=== PATIENT | male | born 1945 | race Caucasian/White ===

== ENCOUNTER 2017-11-12 07:31 | Outpatient (CLI) | payer MEDICARE, BC, SELFPAY | END 2017-11-12 07:32 | PROVIDERS: PCP Family Medicine; Visit Provider Surgery | DX: L72.3 Sebaceous cyst (principal) | CPT/HCPCS: 99213 ==

== ENCOUNTER 2017-12-11 09:27 | Outpatient (CLI) | payer MEDICARE, BC, SELFPAY ==
[2017-12-12 09:05] LABS: PSA, Diagnostic 0.1 ng/ml (0-6.5)
[2017-12-14 15:25] LABS: Testosterone, Total 244 ng/dL (240-950)
== END 2017-12-11 09:47 ==
PROVIDERS: PCP Family Medicine; Visit Provider Nurse Practitioner
DX: C61 Malignant neoplasm of prostate (principal)
CPT/HCPCS: 36415; 84403; 84153

== ENCOUNTER 2018-11-02 10:24 | Outpatient (REF) | payer MEDICARE, BC, SELFPAY ==
[2018-11-02 16:12] LABS: Anion Gap 8.7 mmol/L (3-11); BUN 11 mg/dL (7-18); CO2 28.3 mmol/L (21.0-32.0); CREATININE 0.68 mg/dL (0.70-1.30); Calcium 9.3 mg/dL (8.5-10.1); Calculated LDL 154 mg/dL; Chloride 104 mmol/L (98-107); Cholesterol 238 mg/dL (50-200); Glucose 95 mg/dL (70-100); HDL Cholesterol 76 mg/dL (40-60); Potassium 4.1 mmol/L (3.5-5.1); Sodium 141 mmol/L (136-145); Triglyceride 42 mg/dL (30-150)
== END 2018-11-02 10:44 ==
LOC: NCHCN 10:24
PROVIDERS: PCP Family Medicine; Visit Provider Family Medicine
DX: E78.5 Hyperlipidemia, unspecified (principal); R03.0 Elevated blood-pressure reading, without diagnosis of hypertension; C61 Malignant neoplasm of prostate; M54.5 Low back pain
CPT/HCPCS: 80048; 80061; 83721

== ENCOUNTER 2019-01-28 08:33 | Outpatient (CLI) | payer MEDICARE, BC, SELFPAY ==
[2019-01-29 11:06] LABS: PSA, Diagnostic 0.1 ng/ml (0-6.5)
[2019-02-01 12:53] LABS: Testosterone, Total 319 ng/dL (240-950)
== END 2019-01-28 08:53 ==
PROVIDERS: PCP Family Medicine; Visit Provider Nurse Practitioner
DX: C61 Malignant neoplasm of prostate (principal)
CPT/HCPCS: 36415; 84403; 84153

== ENCOUNTER 2020-02-15 01:52 | Outpatient (CLI) | payer MEDICARE, BC, SELFPAY ==
[2020-02-16 14:48] LABS: PSA, Diagnostic 0.2 ng/ml (0-6.5)
== END 2020-02-15 02:12 ==
PROVIDERS: PCP Family Medicine; Visit Provider Nurse Practitioner
DX: C61 Malignant neoplasm of prostate (principal)
CPT/HCPCS: 36415; 84153

== ENCOUNTER 2020-02-15 10:10 | Outpatient (REF) | payer MEDICARE, BC, SELFPAY ==
--- NOTE | 2020-02-15 09:30 | SKI_PTH ---
PATIENT: Allen Cerda LOC: [facility] U#:[id number] AGE/SX: 75/M ROOM: RE02/15/[address]: Moses Foster : 1945 BED: DIS: 02/15/2020 SPEC #: [id number] RECD: 02/15/20 17:55 STATUS: LIZZY ORTIZ #: [id number] ROCKY: 02/15/20 09:[address]: Moses Foster DEPT: Surgical Specimen RECD BY: Flory Izquierdo Tissues: 1 - SKIN BIOPSY(SHAVE/PUNCH) Procedures: SKIN LEVEL 4 Comments: [id number] ([id number] [facility] [place])
== END 2020-02-15 10:30 ==
LOC: NCHCN 10:10
PROVIDERS: PCP Family Medicine; Visit Provider Family Medicine
DX: L82.0 Inflamed seborrheic keratosis (principal)
CPT/HCPCS: 88305

== ENCOUNTER 2020-12-08 20:24 | Outpatient (CLI) | payer MEDICARE, BC, SELFPAY ==
--- NOTE | 2020-12-08 | DI.RAD_ITS ---
Exam(s) XR HIP RT COMPLETE AP PELVIS EXAM: XR HIP RT COMPLETE AP PELVIS CLINICAL HISTORY: RT HIP PAIN, M25.551 TECHNIQUE: COMPARISON: No exams were available for comparison FINDINGS: Two views were obtained. There are degenerative changes of the lower lumbar spine with multilevel di sc space narrowing. There are mild degenerative changes of the SI joints bilaterally. Cartilaginous joint spaces of the hips appear fairly well maintained. Mild acetabular marginal osteophyte formati on noted bilaterally. No other significant bony abnormality seen. 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 RADIATION DOSE DELIVERED: Total DLP
== END 2020-12-08 20:44 ==
PROVIDERS: PCP Family Medicine; Visit Provider Family Medicine
DX: M25.551 Pain in right hip (principal); M16.0 Bilateral primary osteoarthritis of hip; M47.816 Spondylosis without myelopathy or radiculopathy, lumbar region
CPT/HCPCS: 73502

== ENCOUNTER 2021-02-16 03:38 | Outpatient (CLI) | payer MEDICARE, BC, SELFPAY ==
[2021-02-17 15:05] LABS: PSA, Ultrasensitive 0.13 ng/mL (<= 6.5)
== END 2021-02-16 03:39 | disposition home or self-care (01) ==
LOC: LBO 03:38
PROVIDERS: PCP Family Medicine; Visit Provider Nurse Practitioner Family
DX: C61 Malignant neoplasm of prostate (principal)
CPT/HCPCS: 36415; 84153

== ENCOUNTER 2021-11-30 17:24 | Outpatient (REF) | payer MEDICARE, SELFPAY ==
[2021-11-30 16:47] LABS: Anion Gap 6.9 mmol/L (3-11); BUN 12 mg/dL (7-18); CO2 29.1 mmol/L (21.0-32.0); CREATININE 0.7 mg/dL (0.70-1.30); Calcium 9.4 mg/dL (8.5-10.1); Chloride 104 mmol/L (98-107); Glucose 101 mg/dL (74-106); Potassium 4.7 mmol/L (3.5-5.1); Sodium 140 mmol/L (136-145)
== END 2021-11-30 17:25 | disposition home or self-care (01) ==
LOC: NCHCN 17:24
PROVIDERS: PCP Family Medicine; Visit Provider Family Medicine
DX: R03.0 Elevated blood-pressure reading, without diagnosis of hypertension (principal)
CPT/HCPCS: 80048

== ENCOUNTER → 2021-12-24 07:52 | Outpatient (BNVA) | payer MEDICARE, SELFPAY | PROVIDERS: PCP Family Medicine; Referring Provider Family Medicine; Visit Provider Surgery | DX: L72.3 Sebaceous cyst (principal) | CPT/HCPCS: 99203 ==

== ENCOUNTER 2021-12-28 10:03 | Day surgery (SDC) | payer MEDICARE, SELFPAY ==
--- NOTE | 2021-12-27 17:24 | PDOC.DSDIS_ITS ---
Discharge Plan Disposition Patient Disposition: HOME Condition: Good Discharge Details Reason For Visit: Excision of soft tissue mass Attending Provider: Dion Vilchis Primary Care Provider: Moses Foster Home Meds and New Rx's Prescriptions: Continued cholecalciferol (vitamin D3) 1,000 UNIT capsule 1,000 unit PO DAILY omega-3 fatty acids-fish oil 1 EACH capsule 1 ea PO DAILY glucosamine IIs-xac-ulqrxibabs 1 EACH tablet 1 ea PO DAILY Discharge Instructions Instructions: Soft Tissue Mass (ED), Dermal Cyst Excision (DC) Additional Instructions: 1. Resume all of your medications. 2. Okay to use tylenol and ibuprofen over the counter as needed. 3. Leave bandage in place for 24 hours, then remove. 4. Shower with warm soapy water. Pat dry. Use a bandaid if needed to protect your clothing. 5. No soaking or tub baths until I see you in the office. 6. No heavy lifting until I see you in the office. 7.Call the office (or go directly to the emergency room after hours) if you notice any of the following: Develop chills (warm to touch), or if you have a thermometer and your temperature is above 101 Difficulty breathing or difficultly swallowing Persistent vomiting Any bleeding ? exceeding one tablespoon 8. Call your physician if the site where your intravenous was started becomes red, swollen, painful, and warm to touch. Stand Alone Forms: Bib Paige (DSU) Referrals: Dion Vilchis MD [ [facility]FF PHYSICIAN] - (follow up with me 7-10 days) Activity:: Activity as Tolerated Remove Dressings/Wound Care:: 24 hours Shower/Bathe:: 24 hours Diet:: As Tolerated Discharge Orders Discharge Orders: Discharge Order (Routine); Ordered 12/27/21 Ordered By: Dion Vilchis DS: Diagnosis Discharge Diagnosis (1) Sebaceous cyst: Status: Acute Asessment and Plan: See me in the office 10-14 days for follow up
--- NOTE | 2021-12-27 17:27 | W.PM.OP ---
Date of service: 12/28/21 Time of Service: 14:29 Operative Note Operative Note DATE OF PROCEDURE: 12/28/21 PRE-OP DIAGNOSIS: Soft tissue mass POST-OP DIAGNOSIS: other (Epidermal inclusion cyst) PROCEDURE: excision of skin mass and linear closure SURGEON: Dion Vilchis [employer]ERTY UNDERWRITER: Heidy Woodard Refer to Anesthesia Record ESTIMATED BLOOD LOSS: 25 PATHOLOGY: other (Right-sided lower back mass) COMPLICATIONS: None Patient was transported to: same day Patient's condition: stable Implants: None Indications: He has a mass growing on the right side of his lower back.? He notes is mostly he has had this excised previous.? Once in 2015, and once in 2018.? Both of those were described as sebaceous cysts, although there is no pathology available to me to confirm that.? He did enjoy a period of time where his symptoms were relieved.? However, over the past few years or so, it has returned.? He describes it as a golf ball size mass on his lower back.? He says it is most noticeable when he is out doing chores like riding a tractor or his mower.? He also has some discomfort transitioning from seated to standing positions.? He denies any drainage from it.? He denies any other lumps or bumps anywhere else.? Generally, he feels like he is in a great state of health. Findings: Soft tissue mass measuring approximately 5 cm x 6 cm x 6 cm consistent with epidermal inclusion cyst Procedure Description: I began by prepping and draping the skin of the right lower back. Next, using sterile technique, I administered local anesthesia with epinephrine to establish a generous field block. Next, I used a 15 blade scalpel to establish a football shaped incision encompassing his previous surgical site scar. I dissected down through all layers of the skin using sharp technique. Gentle pressure was used to assist with hemostasis. Immediately under the skin I encountered a glistening white capsule that seemed consistent with epidermal inclusion cyst. I used a 15 blade scalpel to dissect the skin off of the cyst wall. Using Metzenbaum scissors, I performed circumferential sharp dissection of the cystic mass. This dissection took me down to the superficial layer of the muscular fascia. Once the mass was dissected in its entirety it was delivered through the surgical site and passed off the field. I irrigated the surgical bed. There was a minimal amount of bleeding that was easily controlled with Bovie electrocautery. Again I examined the field and it appeared hemostatic. Next, I approximated the deep edges of the skin with interrupted Vicryl sutures. I tacked it to the muscular fascia to obliterate the space. Skin was closed with running subcuticular stitches, and bandages were applied. I estimate the final surgical cavity was approximately 8 cm long by 5 cm deep by 6 cm wide.
[2021-12-28 10:10] VITALS: BP 194/96; PULSE 68; RESP 16; TEMP 36.3; O2SAT 99
[2021-12-28] MEDS: Lactated Ringers 1,000 ML 80 ML IV ×2 (10:55→14:21)
[2021-12-28] MEDS: Acetaminophen 500 MG TAB 1000 MG PO (12:07)
[2021-12-28] MEDS: Celecoxib 200 MG CAP PO (12:08)
[2021-12-28] MEDS: Gabapentin 300 MG CAP 600 MG PO (12:08)
--- NOTE | 2021-12-28 12:55 | W.ANESPRE ---
General Info Date of Service Date Performed: 12/28/21 Height: 5 ft 7 in Weight: 69.1 kg Body Mass Index (BMI): 23.8 Surgical Procedure: Operation Date: 12/28/21 10:40 Proposed Procedure Side Surgeon p Excision of Soft Tissue Mass on Back Dion Vilchis MD Meds Allergies and Home Medications Allergies Allergy/AdvReac Type Severity Reaction Status Date / Time No Known Allergies Allergy Unverified 12/28/21 10:06 Home Medication Medication Instructions Recorded cholecalciferol (vitamin D3) 25 1,000 unit PO DAILY 11/07/17 mcg (1,000 unit) capsule glucosamine HCl 500 mg-msm 83 1 ea PO DAILY 11/07/17 mg-chondroitin 400 mg tablet omega-3 fatty acids-fish oil 300 1 ea PO DAILY 11/07/17 mg-1,000 mg capsule Current Visit Medications: Current Medications Generic Name Dose Route Start Last Admin Trade Name Freq PRN Reason Stop Dose Admin Acetaminophen 1,000 mg 12/28/21 06:00 12/28/21 12:07 Acetaminophen 500 Mg Tab PO 12/28/21 23:59 1,000 mg PREOP KAMALA Administration Acetaminophen 650 mg 12/27/21 17:29 Acetaminophen 325 Mg Tab PO Q4H PRN PRN Celecoxib 200 mg 12/28/21 06:00 12/28/21 12:08 Celecoxib 200 Mg Cap PO 12/28/21 23:59 200 mg PREOP KAMALA Administration Gabapentin 600 mg 12/28/21 06:00 12/28/21 12:08 Gabapentin 300 Mg Cap PO 12/28/21 23:59 600 mg PREOP KAMALA Administration Ringer's Solution 1,000 mls @ 80 mls/hr 12/28/21 06:00 12/28/21 10:55 IV 12/28/21 23:59 80 mls/hr INFUSION KAMALA Administration Cefazolin Sodium/Dextrose 2 gm in 50 mls @ 100 mls/hr 12/28/21 06:00 Ancef Duplex IVPB 12/28/21 23:59 PREOP KAMALA Ondansetron HCl 8 mg/ Sodium 54 mls @ 200 mls/hr 12/27/21 17:29 Chloride IVPB Q6H PRN PRN IV Miscellaneous Supplies 1 each 12/28/21 06:00 Iv Access IV 12/28/21 23:59 DIRECTED KAMALA Morphine Sulfate 2 mg 12/27/21 17:29 Morphine 4 Mg/Ml Syr IVP Q1H PRN PRN Sodium Chloride 0 ml 12/28/21 06:00 Normal Saline Flush 10 Ml Syr IV 12/28/21 23:59 PRN PRN Sodium Chloride 0 ml 12/28/21 06:00 Normal Saline 10 Ml Vial IJ 12/28/21 23:59 DIRECTED PRN Sterile Water 0 ml 12/28/21 06:00 Water,Injection,Sterile 10 Ml Vial IJ 12/28/21 23:59 DIRECTED PRN PFSH Active Problems Active Problems: Problem Status Onset Code Hypertension I10 Sebaceous cyst Medical History Medical History Chronic low back pain Degenerative joint disease Hyperlipidemia Osteoarthritis Prostate cancer Surgical History Surgical History Appendectomy Biopsy, Soft Tissue (11/18/17) back lesions Colonoscopy - IV Sedation Exe Neoplasm skin R lower back (11/30/14) Dr. Anand Umaña Tobacco Smoking/Tobacco Use Status: Former Tobacco Use Alcohol Alcohol Intake: current Alcohol intake frequency: a few times a month Alcohol type: beer Substance Use Substance use: Never Substance use type: does not use Vital Signs and Lab Results Vital Signs Most Recent Vital Signs in EMR: Most Recent Vital Signs Temp Pulse Resp BP Pulse Ox 36.3 C L 68 16 194/96 H 99 12/28/21 10:10 12/28/21 10:10 12/28/21 10:10 12/28/21 10:10 12/28/21 10:10 Lab Results Blood Type / Crossmatch: No Data to Display Complete Blood Count: No Data to Display Complete Metabolic Panel: Sodium Level 140 mmol/L (136-145) 11/30/21 10:15 Potassium Level 4.7 mmol/L (3.5-5.1) 11/30/21 10:15 Chloride Level 104 mmol/L (98-107) 11/30/21 10:15 Carbon Dioxide Level 29.1 mmol/L (21.0-32.0) 11/30/21 10:15 Blood Urea Nitrogen 12 mg/dL (7-18) 11/30/21 10:15 Creatinine 0.7 mg/dL (0.70-1.30) 11/30/21 10:15 Estimated GFR/1.73 m2 >= 60.00 (mL/min/1.73m2) 11/30/21 10:15 Calcium Level 9.4 mg/dL (8.5-10.1) 11/30/21 10:15 Glucose Level 101 mg/dL (74-106) 11/30/21 10:15 Liver Function Panel: No Data to Display Coagulation Panel: No Data to Display Cardiac Panel: No Data to Display Arterial Blood Gas: No Data to Display Venous Blood Gas: No Data to Display Pancreas Panel: No Data to Display Thyroid Panel: No Data to Display Infectious Disease: No Data to Display Blood Cultures: No Data to Display Toxicology Panel: No Data to Display Anesthesia Assessment and Plan Anesthesia History Personal History: No History of Anesthesia Complications Family History: No Family History of Anesthesia Complications Exercise Tolerance Exercise Tolerance: Metabolic Equivalents>4 Pertinent Negatives Pertinent Negatives: No Symptoms of GERD, No Major Cardiovascular Symptoms or Complaints, No Major Pulmonary Symptoms or Complaints (Quit smoking 1989) and No History of CVA/TIA Cardiac & Pulmonary Exam Cardiac Exam: Normal S1/S2 Heart Sounds Pulmonary Exam: Clear Bilateral Breath Sounds Implantable Cardiac Device Does patient have a Pacemaker or an ICD?: No Airway Exam Known Difficult Airway: No Mallampati Class: 3 Mouth Opening: Normal (> 3cm) Thyromental Distance: Greater than 3 cm Facial Hair: Full Lieberman Neck Range of Motion: Full ROM Neck Circumference: Normal Teeth Condition: Normal Dentition ASA Classification ASA Score: ASA 2 Emergency Case?: No NPO Status NPO Status: NPO Clears >2 hours, Solids >8 hours Anesthesia Plan Resuscitation Status: Full Code Anesthesia Technique: General Anesthesia Airway Planned: Natural Airway Monitors Used: Standard Monitors
[2021-12-28 12:56] VITALS: BMI 23.8
[2021-12-28 13:08] VITALS: BP 166/91; PULSE 67; RESP 16; TEMP 36.5; O2SAT 98
[2021-12-28] MEDS: ceFAZolin 2 GM/50 ML BAG IVPB (13:27)
[2021-12-28] MEDS: Lidocaine 1% Multi-Dose W/EPI 1/100,000 50 ML VIAL (14:00)
--- NOTE | 2021-12-28 14:05 | SOFT_PTH ---
PATIENT: Allen Cerda LOC: [facility] U#:[id number] AGE/SX: 76/M ROOM: RE12/28/[address]: Dion Vilchis MD : 1945 BED: DIS: 12/28/2021 SPEC #: [id number] RECD: 12/28/21 18:24 STATUS: MARYKita REQ #: [id number] ROCKY: 12/28/21 14:[address]: Dion Vilchis DEPT: Surgical Specimen RECD BY: Flory Izquierdo ENTERED: 12/28/21 18:25 SP TYPE: SOFT OTHR DR: Moses Foster Tissues: 1 - SOFT [facility]UE [facility] Procedures: GROSS AND MICRO LEVEL 3 Comments: [id number]
[2021-12-28 14:40] VITALS: BP 138/85; PULSE 55; RESP 12; TEMP 36; O2SAT 97
--- NOTE | 2021-12-28 14:44 | W.ANESPOSTOP ---
Postoperative Evaluation Date, Time and Location Date Performed: 12/28/21 Time Performed: 14:44 Patient Location: Day Surgery Unit Vital Signs Most Recent Imported Vital Signs: Most Recent Vital Signs Temp Pulse Resp BP Pulse Ox 36.5 C 67 16 166/91 H 98 12/28/21 13:08 12/28/21 13:08 12/28/21 13:08 12/28/21 13:08 12/28/21 13:08 Most Recent Manually Entered Vital Signs: Adult Blood Pressure: 128/84 Heart Rate: 78 Respirations: 12 Oxygen Saturation (%): 98 Temperature (C): 36.3 C Pain Score (0-10 Scale): 0 Pain Score Most Recent Pain Score: Most Recent Pain Score Pain Level 0 12/28/21 13:08 Assessment Mental Status: Awake (Alert & Oriented to Patient Baseline) Airway and Respiratory Function: Patent airway with normal (patient baseline) respiratory exam Cardiovascular Function: Hemodynamically Stable Hydration Status: Adequately Hydrated Nausea & Vomiting: No Nausea or Vomiting Pain: Pt. Denies Any Pain Peripheral Nerve Block: Patient did not receive a nerve block
[2021-12-28 14:45] VITALS: BP 128/84; PULSE 78; RESP 12; TEMPC 36.3; O2SAT 98
[2021-12-28 15:18] VITALS: BP 130/72; PULSE 59; RESP 16; TEMP 35.8; O2SAT 99
== END 2021-12-28 15:50 | disposition home or self-care (01) ==
PROVIDERS: PCP Family Medicine; Visit Provider Surgery
PROC: (CPT 21931; principal; 2021-12-28 10:30)
DX: L72.9 Follicular cyst of the skin and subcutaneous tissue, unspecified (principal)
CPT/HCPCS: 21931; 88304; J0690; J2250

== ENCOUNTER → 2022-01-07 11:23 | Outpatient (BNVA) | payer MEDICARE, SELFPAY | PROVIDERS: PCP Family Medicine; Referring Provider Family Medicine; Visit Provider Surgery | DX: L72.3 Sebaceous cyst (principal); T81.31XA Disruption of external operation (surgical) wound, not elsewhere classified, initial encounter ==

== ENCOUNTER → 2022-01-14 09:17 | Outpatient (BNVA) | payer MEDICARE, SELFPAY | PROVIDERS: PCP Family Medicine; Referring Provider Family Medicine; Visit Provider Surgery | DX: L72.3 Sebaceous cyst (principal); T81.31XA Disruption of external operation (surgical) wound, not elsewhere classified, initial encounter | CPT/HCPCS: 99213 ==

== ENCOUNTER → 2022-01-30 07:29 | Outpatient (BNVA) | payer MEDICARE, SELFPAY | PROVIDERS: PCP Family Medicine; Referring Provider Family Medicine; Visit Provider Surgery | DX: L72.3 Sebaceous cyst (principal); T81.31XA Disruption of external operation (surgical) wound, not elsewhere classified, initial encounter | CPT/HCPCS: 99213 ==

== ENCOUNTER → 2022-02-20 08:20 | Outpatient (BNVA) | payer MEDICARE, SELFPAY | PROVIDERS: PCP Family Medicine; Referring Provider Family Medicine; Visit Provider Surgery | DX: T81.31XA Disruption of external operation (surgical) wound, not elsewhere classified, initial encounter (principal) ==

== ENCOUNTER 2022-03-20 03:17 | Outpatient (CLI) | payer MEDICARE, SELFPAY ==
[2022-03-21 19:24] LABS: PSA, Ultrasensitive 0.15 ng/mL (<= 6.5)
== END 2022-03-20 03:18 | disposition home or self-care (01) ==
LOC: LBO 03:17
PROVIDERS: PCP Family Medicine; Visit Provider Nurse Practitioner Family
DX: C61 Malignant neoplasm of prostate (principal)
CPT/HCPCS: 36415; 84153

== ENCOUNTER 2022-12-03 10:06 | Outpatient (REF) | payer MEDICARE, SELFPAY ==
[2022-12-03 16:50] LABS: Calculated LDL 155 mg/dL (<100); Cholesterol 245 mg/dL (<200); HDL Cholesterol 82 mg/dL (40-60); Triglyceride 42 mg/dL (<150)
== END 2022-12-03 10:07 | disposition home or self-care (01) ==
LOC: NCHCN 10:06
PROVIDERS: PCP Family Medicine; Visit Provider Family Medicine
DX: E78.5 Hyperlipidemia, unspecified (principal)
CPT/HCPCS: 80061

== ENCOUNTER 2023-03-25 02:33 | Outpatient (CLI) | payer MEDICARE, SELFPAY | END 2023-03-25 02:34 | disposition home or self-care (01) | PROVIDERS: PCP Family Medicine; Visit Provider Nurse Practitioner | DX: C61 Malignant neoplasm of prostate (principal) | CPT/HCPCS: 36415; 84153 ==

== ENCOUNTER 2024-04-09 13:52 | Outpatient (CLI) | payer MEDICARE, SELFPAY ==
--- OUTSIDE RECORDS SUMMARY | 2024-04-09 13:57 | XMS_ITS | Encounter Summary ---
Author Organization [facility] [place] [address] Care Team Providers Care Print Shop Assistant Name Role Phone Moses Foster MD Primary Care Provider [phone] Encounter Details Date Type Department Care Team (Latest Contact Info) Description 04/10/2023 3:15 PM EST TH Visit (TeleHealth) [place] [address] Kimberley Foster APRN [facility] [place] [address] Personal history of prostate cancer; History of external beam radiation therapy Social History Tobacco Use Types Packs/Day Years Used Date Smoking Tobacco: Former Pipe Q uit: 06/24/1986 Cigars Quit: 06/24/18 87 Smokeless Tobacco: Former Chew Comments:quit smoking & chewing 20 yrs ago Alcohol Use Standard Drinks/Week Comments Yes 0 (1 standard drink = 0.6 oz pure alcohol) ocassional beer, usually in the summer Sex and Gender Information Value Date Recorded Sex Assigned at Not on file Gender Identity Not on file Sexual Orientation Not on file documented as of this encounter Last Filed Vital Signs Vital Sign Reading Time Taken Comments Blood Pressure 168/87 04/10/2023 3:06 PM EST Pulse 66 04/10/2023 3:06 PM EST Temperature 36.5 ??C (97.7 ??F) 04/10/2023 3:06 PM ES T Respiratory Rate 18 04/10/2023 3:06 PM EST Oxygen Saturation 100% 04/10/2023 3:06 PM EST Inhaled Oxygen Concentration - - Weight 68.1 kg (150 lb 3.2 oz) 04/10/2023 3:06 P M EST Height 168.9 cm (5' 6.5) 04/10/2023 3:06 PM EST Body Mass Index 23.88 04/10/2023 3:06 PM EST documented in this encounter Progress Notes * Kimberley Foster APRN - 04/10/2023 3:15 PM EST [facility] RADIATION ONCOLOGY [facility] TH VISIT FOLLOW UP NOTE Patient Allen Cerda 1945 PCP: Moses Foster MD Urologist: Radiation oncologist: Dr. Smith Chief Complaint: Allen Cerda is a 78 y.o. male presenting for TH follow up/surveillance/labs fora history of high risk prostate cancer, post EBRT completed 03/19/2013 and 27 months of ADT. HPI: hx high risk prostate cancer at age 67 years- PSA 93.30 at presentation; CANDIS abnormal, G 4+5; 10/17 core biopsies +, PRINCESS/SV/nodes neg on MRI; Completed EBRT 79.2 Gy in 44 fractions on 03/19/2013.Completed casodex with RT and Lupron 11/10/12- 11/02/14 (27 mos total). Interim HPI: I reviewed the following outside notes: none Reports no hospitalizations in past year Review of Symptoms: Patient concerns for today's visit: no specific concerns, reports doing well GI: colonoscopy 12/18/12; 4 polyps removed; no changes; no hematochezia; reports PCP said he didn't need any more colonoscopy due to higher risk than benefit; did a stool test that was negative : no hematuria; nocturia 2X; no dribbling no pad; no changes in pattern Endocrine:taking ca/vit d for osteopenia; Sexual health: ED since RT/ADT Muscle skeletal (new bone pain): no new pain; usual arthritis Mood: no depression Sleep: well 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 BP 168/87 (Patient Position: Sitting) Pulse 66 Temp 36.5 ??C (97.7 ??F) (Temporal) Resp 18 Ht 168.9 cm (5' 6.5) Wt 68.1 kg (150 lb 3.2 oz) Seen on video- alert/clear speech, good eye contact New Labs Reviewed this visit: Date PSA Testosterone (range 240 to 950) 03/27/23 0.10 03/20/22 02/27/21 0.15 0.13 12/11/2017 0.1 244 06/05/2017 0.1 225 12/04/2016 < 0.1 215 06/06/16 <0.1 150 12/06/15 <0.1 99 06/06/2015 < 0.1 62 02/06/2015 < 0.1 27 11/02/2014 < 0.1 < 20 07/25/2014 < 0.1 < 20 04/13/2014 < 0.1 15 01/11/2014 < 0.1 < 20 09/30/2013 <0.1 <20 06/24/2013 <0.03 09/28/2012 57.2 08/27/2012 93.30 Assessment/Medical Decision Making/Recommendations/Plan: # history of prostate cancer: reviewed PSA results remains very low at 0.10 Ten years out from radiation therapy . No concerning reported symptoms reported today # effects of EBRT: no hematochezia or hematuria; stable urinary/bowel patterns # Late effects of radiation: We reviewed potential late effects of radiation that require medical evaluation including : Changes in urinary flow/difficulty passing urine (scarring from radiation) Blood in urine (may be infection, inflammation bladder wall (cystitis), formation of telangiectasia(small, thin blood vessels that are dilated or broken, near the surface of the bladder and may bleed) or bladder/genitourinary cancer Blood in bowel movements (stools)- maybe from hemorrhoids, telangiectasia from radiation, colorectal cancer Symptoms that you should bring to the attention of your provider: Difficulty or changes in your urine flow Blood in your urine or stool # survivorship/lifestyle/wellness: -exercises regularly; quit smoking, limited alcohol; sees PCP regularly # follow up: Per NCCN guidelines (), PSA and history/physical every 6-12 months X 5 years, then annually. CANDIS if suspicion of recurrence. PSA may be checked more frequently depending on risk level or other patient specific factors. Next visit: 1 year with MOLLY in office Labs: PSA only Allen Cerda had the opportunity to ask questions and I answered them to the best of my knowledge. Allen Cerda agreed to contact radiation oncology in between visits if he has any questions/concerns or new symptoms in regards to the radiation therapy/prostate cancer Kimberley Foster, DNP, ANP, TOURIST CAMP ATTENDANT, AOCNP Nurse Practitioner Radiation Oncology documented in this encounter Plan of Treatment Upcoming Encounters Date Type Department Care Team (Late st Contact Info) Description 04/15/2024 1:00 PM EST Office Visit Radiation Oncology at [address] [phone] Bernda Calvin PA [facility] [address] [place] [address] Scheduled Orders Name Type Priority Associated Diagnoses Orde r Schedule PSA (Ultrasensitive) Lab Routine Personal history of prostate cancer Expected: 04/09/2024 (Approximate), Expires: 10/09/2024 documented as of this encounter Visit Diagnoses Diagnosis Personal history of prostate cancer Personal history of malignant neoplasm of prostate History of external beam radiation therapy documented in this encounter Care Teams Print Shop Assistant Relationship Specialty Start Date End Date Moses Foster MD PCP - General 08/20/16 documented as of this encounter
--- OUTSIDE RECORDS SUMMARY | 2024-04-09 13:57 | XMS_ITS | Referral Summary ---
Author Organization [facility] Address [address] [place] [address] Care Team Providers Care Conveyor Belt Repairer Name Role Phone Unknown, Provider Primary Care Provider Unava ilable Social History Tobacco Use Types Packs/Day Years Used Date Smoking Tobacco: Never Assessed Sex and Gender Information Value Date Recorded Sex Assigned at Not on file Legal Sex Male 8:08 EDT Gender Identity Not on file Sexual Orientation Not on file Plan of Treatment Not on file Insurance [facility] MEDIC[facility] Care Teams Conveyor Belt Repairer Relationship Specialty Start Date End Date Unknown, Provider, PCP - General 12/19/12
--- OUTSIDE RECORDS SUMMARY | 2024-04-09 13:57 | XMS_ITS | Encounter Summary ---
Author Organization [facility] Address [address] [place] [address] Care Team Providers Care Motion Study Analyst Name Role Phone Unknown, Provider Primary Care Provider Unava ilable Encounter Details Date Type Department Care Team (Late st Contact Info) Description 12/18/2012 Results Only [facility] [phone] Norma Umaña, DO [address] [place] [address] Social History Tobacco Use Types Packs/Day Years Used Date Smoking Tobacco: Never Assessed Sex and Gender Information Value Date Recorded Sex Assigned at Not on file Legal Sex Male 8:08 EDT Gender Identity Not on file Sexual Orientation Not on file documented as of this encounter Plan of Treatment Not on file documented as of this encounter Procedures Procedure Name Priority Date/Time Associated Diagnosis Comments SURGICAL PATHOLOGY Routine 12/18/2012 8:19 EDT documented in this encounter Results * SURGICAL PATHOLOGY (12/18/2012 8:19 EDT) Pathology Report: SURGICAL PATHOLOGY REPORT Reports generated via electronic interface contain original data; however they are lacking the format of the original report. Caution should be taken when reading/interpreti ng unformatted reports. Name: ? JULITA ALLEN ? Accession #: ? [id number] ? : ? 1945 (Age: 67) ??M ? Collect Date: ? 12/18/2012 ? Location: ? [facility] ? Receive Date: ? 12/18/2012 ? Provider: NORMA UMAÑA DO Copy to: MYRIAM SALINAS MD ? Final Pathologic Diagnosis: A. COLON, TRANSVERSE, POLYP, BIOPSY: - ??Colonic mucosa with surface hyperplastic changes (2 pieces). See comment. B. COLON, DESCENDING, POLYP, BIOPSY: - ??Colonic mucosa surface hyperplastic changes (1 piece). See comment. C. RECTUM, POLYPS, BIOPSIES: - ??Portions of hyperplastic polyp (3 pieces); no adenoma. Comment: Deeper sections of specimens A and B have been examined. Dr. Davis 12/21/2012 11:44 AM Document reviewed and electronically signed by: Rubin Baird MD Report ??Date: 12/22/2012 17:41 By the signature above, the attending physician certifies that he/she has personally conducted a gross and/or microscopic examination of the described specimens and rendered or confirmed the above diagnosis. Specimen(s) Received: A. ??Biopsy of polyp transverse colon (#1) B. ??Biopsy of poly descending colon (#2) C. ??Biopsy of rectal polyps (#3) Clinical History: Colon cancer screening Gross Description: A. ?Received in formalin labelled with proper patient identification (initials G, G) and 1- biopsy of polyp transverse colon is a single pink-irene tissue fragment (there were 4 x 0.3 x 0.2 cm). Submitted intact in A1. B. ?Received in formalin labelled with proper patient identification (initials G, G) and 2- biopsy of polyp descending colon is a single pink-irene tissue fragment (0.3 x 0.3 x 0.2 cm). Submitted intact in B1. C. ?Received in formalin labelled with proper patient identification (initials G, G) and 3- biopsy rectal polyp are three pink-irene tissues (0.2 x 0.2 x 0.2 cm to 0.3 x 0.2 x 0.2 cm). Entirely submitted in C1. Dr. Davis 12/19/2012 09:50 AM End of Report [facility] 12/18/2012 8:19 EDT 12/18/2012 8:19 EDT us Norma Umaña DO PATHOLOGY ORDERABLES Final Res ult Performing Organization Address City/State/[facility] Co de Phone Number [facility] [address] [place] [address] documented in this encounter Visit Diagnoses Not on filedocumented in this encounter Care Teams Motion Study Analyst Relationship Specialty Start Date End Date Unknown, Provider, PCP - General 12/19/12 documented as of this encounter
--- OUTSIDE RECORDS SUMMARY | 2024-04-09 13:57 | XMS_ITS | Encounter Summary ---
Author Organization [facility] [place] [address] Care Team Providers Care Lens Hardener Name Role Phone Howard Rayo MD Primary Care Provider [phone] Reason for Visit * Reason Comments Radiation Follow-up prostate cancer Encounter Details Date Type Department Care Team (Late st Contact Info) Description 06/15/2015 1:00 PM EST Office Visit Radiation Oncology at [address] [phone] Joana Layton, QC ANALYST Malignant neoplasm of prostate Social History Tobacco Use Types Packs/Day Years Used Date Smoking Tobacco: Former Pipe Q uit: 06/24/1986 Cigars Quit: 06/24/18 87 Smokeless Tobacco: Former Chew Comments:quit smoking 1979' & chewing 20 yrs ago Alcohol Use [...] Sign Reading Time Taken Comments Blood Pressure 133/76 06/15/2015 1:00 PM EST Pulse 68 06/15/2015 1:00 PM EST Temperature 36.6 ??C (97.9 ??F) 06/15/2015 1:00 PM ES T Respiratory Rate 16 06/15/2015 1:00 PM EST Oxygen Saturation 100% 06/15/2015 1:00 PM EST Inhaled Oxygen Concentration - - Weight 72.8 kg (160 lb 8 oz) 06/15/2015 1:00 PM EST Height - - Body Mass Index 25.14 10/29/2012 10:25 AM EDT documented in this encounter Patient Instructions * Patient Instructions* Joana Layton APRN - 06/15/2015 1:16 PM EST Date PSA testosterone 06/06/2015 < 0.1 02/06/2015 < 0.1 27 11/02/2014 < 0.1 < 20 07/25/2014 < 0.1 < 20 04/13/2014 < 0.1 15 01/11/2014 < 0.1 < 20 09/30/2013 <0.1 <20 06/24/2013 <0.03 09/28/2012 57.2 08/27/2012 93.30 Vitals Office Visit from 06/15/2015 in [facility] Radiation Oncology Weight - Scale 72.802 kg (160 lb 8 oz) Temp 36.6 ??C (97.9 ??F) Temp Source Oral Heart Rate 68 Resp 16 BP 133/76 mmHg BP Location Left arm Patient Position Sitting SpO2 100 % documented in this encounter Progress Notes * Joana Layton APRN - 06/15/2015 12:50 PM EST Identification: Allen Cerda is a 70 y.o. 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 He was treated with radiation therapy 79.2 Gy and completed treatment on 03/19/2013. He had his last injection of Lupron on 11/02/2014 completing 28 months of androgen deprivation.He is in clinic for scheduled follow up. HPI Mr. Allen Cerda injured his back in August of this year and established care with Dr. Rayo. He had not been seen by a physician in many years. He had an MRI of the lumbar spine performed here that did not show any osseus lesions. Lab work performed by Dr. Rayo showed an elevated PSA: 09/28/12: 57.2 In August by review of the record PSA was 98. His CANDIS was abnormal with a left nodule. He had a biopsy performed on 10/05/12 which revealed: ---Pathologic Diagnosis--- A - Prostatic core needle biopsy, right base: Benign prostatic tissue. B - Prostatic core needle biopsy, right mid: Benign fibromuscular tissue. C - Prostatic core needle biopsy, right apex: Benign prostatic tissue. D - Prostatic core needle biopsy, right lateral base: Benign prostatic tissue. E - Prostatic core needle biopsy, right lateral mid: Benign prostatic tissue. F - Prostatic core needle biopsy, right lateral apex: Benign prostatic tissue. G - Prostatic core needle biopsy, left base: Adenocarcinoma, Donny grade 4 + 3, involving approximately 50% of the single biopsy core. H - Prostatic core needle biopsy, left mid:1. Adenocarcinoma, [place] grade 4 + 3, involvingapproximately 60% of the fragmented needle biopsy core.2. Perineural invasion is present. I - Prostatic core needle biopsy, left apex:1. Adenocarcinoma, [place] grade 3 + 4, involvingapproximately 10% of the single biopsy core.2. Perineural invasion is present. J - Prostatic core needle biopsy, left lateral base:1. Adenocarcinoma, Donny grade 4 + 5, involvingapproximately 70% of the single biopsy core (seeComment).2. Focus of intraluminal cancer, suspicious for lymphatic invasion. K - Prostatic core needle biopsy, left lateral mid:adenocarcinoma, Donny grade 4 + 4, involving [id number]% of the single biopsy core. L - Prostatic core needle biopsy, left lateral apex:Adenocarcinoma, [place] grade 3 + 3, involving less than 5%of the single biopsy core. M - Prostatic core needle biopsy, left nodule x 2:Adenocarcinoma, Donny grade 4 + 4, involving [id number]% of the multiple needle biopsy core fragments. His other work-up has included: --MRI Pelvis 10/20/12 Impression 1. Markedly enlarged heterogeneous prostate with pre-existing benign prostatic hypertrophy. In addition, there are low signal intensity foci on T2 images within the peripheral zone consistent with/concerning for prostate cancer. One is quite circumscribed and measures 2 cm. No MR findings to suggest extracapsular extension. No adenopathy. ---Bone Scan: 10/20/12 Impression No skeletal metastases. IPSS: 1 TRUS:46cc ALVINA: 25 TREATMENT: MCC ADT FOR 28 MONTHS PLANNED. Radiotherapy: Treatment: Definitive radiation with Neoadjuvant/Concurrent/Adjuvant Androgen Deprivation. PROSTATE Plan Start Tx Last Tx Elapsed Days Fractions Dose (cGy) PTV1 Pelvis 01/14/2013 02/17/2013 34 25 / 25 @ 180.0 cGy 4500 / 4500 Energy Mode: 10X Treatment Type: Rapid Arc PTV3 Prostate 03/15/2013 03/19/2013 4 5 5 @ 180.0 cGy 900 / 900 Energy Mode: 10X Treatment Type: Rapid Arc PTV2 Prost_SV 02/18/2013 03/12/2013 22 @ 180.0 cGy 2520 / 2520 Energy Mode: 10X Treatment Type: Rapid Arc Total C1 PROSTATE dose: 7920.0 cGy Total Dose: 7920.0 cGy Treatment summary reviewed with patient 01/20/2014--see after visit summary Prostate Cancer Notes 10/27/2013, update 04/21/2014, update 02/09/2015 Date of Presentation 08/27/2012 Age at Presentation 67 years old PSA at Presentation 93.30 on 08/27/2012, and 57.2 on 09/28/2012 Presence of Symptoms at Presentation negative Ethnicity White Result of CANDIS Abnormal Date of TRUS and Biopsy 10/05/2012 Volume in cc 46 cc [place] grade/score a+b=c 4+5=9 Total Cores 13 biopsy cores Positive cores 7 cores Bone Scan at Presentation -negative Date of Bone Scan 10/20/2012 Prostate confined yes PRINCESS -negative on MRI SV -negative on MRI Regular Nodes -negative on MRI Distant Mets -negative on MRI Date of MRI 10/20/2012 Urinary Continence at Presentation normal Primary Therapy EBRT EBRT Date Began 01/14/2013 ERBT Total Dose (Gy) 79.2 Gy Treatment Fractions 44 fractions Elapsed Date 03/19/2013 Post Primary Therapy - Les Date 09/30/2013 Post Primary Therapy - Les PSA <0.1 Adjuvant Therapy LHRH agonist--Casodex started on 10/29/2012 through XRT and Lupron given as follows: 11/10/2012 --Lupron 22.5 mg IM 02/01/2013--Lupron 22.5 mg IM 04/27/2012--Lupron 22.5 mg IM 07/23/2013-Lupron 22.5 mg IM 10/21/2012--Lupron 22.5 mg IM 01/20/2014-Lupron 22.5 mg IM 04/21/2014--Lupron 22.5 mg IM 07/28/2014-- Lupron 22.5 mg IM 11/02/2014--Lupron 22.5 mg IM ADT Duration in Months 28 months completed DEXA 06/06/2015--mild osteopenia left hip with Frax xcore of 2.3% Patient Active Problem List Diagnosis Code ??? PSA elevation R97.2 ??? Prostate nodule N40.2 ??? Prostate cancer C61 ---arthritis No past surgical history on file. No Known Allergies Current Outpatient Prescriptions on File Prior to Visit Medication Sig Dispense Refill ??? calcium-vitamin D 500 mg(1,250mg) -200 unit Tablet Take 1 tablet by mouth 2 times daily (with meals). ??? fish oil-omega-3 fatty acids 1,000 mg Capsule Take 2 g by mouth daily. ??? ibuprofen (ADVIL;MOTRIN) 200 mg tablet Take 400 mg by mouth every 6 hours as needed. Indications: Pain, chronic back pain No current facility-administered medications on file prior to visit. History Social History ??? Marital Status: Spouse Name: N/A Number of Children: N/A ??? Years of Education: N/A Occupational History ??? Not on file. Social History Main Topics ??? Smoking status: Former Smoker Types: Pipe, Cigars Quit date: 06/24/1986 ??? Smokeless tobacco: Former User Types: Chew Comment: quit smoking 1979' & chewing 20 yrs ago ??? Alcohol Use: Yes Comment: ocassional beer, usually in the summer ??? Drug Use: Not on file ??? Sexual Activity: Not on file Other Topics Concern ??? Not on file Social History Narrative Advance Directive: see advance care planning note. Interim History: Mr Cerda reports that he is feeling well with no new health issues since he was last seen in clinic. He has ongoing non-distressing hot flashes. The hot flashes seem more intense butof shorter duration--this is not distressing to patient. He is active working around his property and tolerating this. He finds that he fatigues faster so then stops. He has no pain. He has no bowel issues with bowel function twice a day --he reports no constipation, no diarrhea, no hematochezia and no melena.--Mr Cerda had a colonoscopy done 12/29/2012 and four polyps were removed. He has no bladder issues. He denies dysuria, hematuria and incontinence His IPSS is lower and Remains stable at 2.He indicates that he is delighted with his urinary function. International Prostate Symptom Score Total Score__2___ 0 1 2 3 4 5 Not at all Less than one time in five Less than half of the time About half of the time More than half of the time Almost always Incomplete emptying X frequency X intermittency X urgency X Weak stream X Flow resistance X Not at all Every eight hours Every four hours Every three hours Every 2 hours Every hour nocturia X He is not sexually active--ALVINA=0 Review of Systems Constitutional: Negative. Negative for activity change. 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 Hot flashes--do not interfere with sleep--fatigue is decreasing No breast tenderness Able to do some logging -- HENT: Negative. Eyes: Negative. Respiratory: Negative. Negative for cough, chest tightness, shortness of breath and wheezing. Cardiovascular: Negative. Negative for chest pain and leg swelling. Gastrointestinal: Negative. Negative for abdominal pain, diarrhea, constipation, blood in stool, abdominal distention and rectal pain. See interim history Genitourinary: Negative. Negative for dysuria, urgency, frequency, hematuria, decreased urine volume, enuresis and difficulty urinating. See interim history Musculoskeletal: Negative. Negative for arthralgias. Back is feeling better overall Skin: Patient had large lipoma on his back surgically removed in November 2014 Neurological: Negative. Negative for weakness. Hematological: Negative. Psychiatric/Behavioral: Negative. KPS: 100 Vitals Office Visit from 02/09/2015 in [facility] Radiation Oncology Weight - Scale 72.122 kg (159 lb) Temp 36.7 ??C (98.1 ??F) Temp Source Oral Heart Rate 62 Heart Rate Source Right, NIBP Resp 16 BP 146/86 mmHg BP Location Right arm Patient Position Sitting SpO2 99 % Physical Exam Constitutional: He is oriented to person, place, and time. He appears well- developed and well-nourished. No distress. HENT: Head: Normocephalic and atraumatic. Eyes: Conjunctivae and EOM are normal. Left eye exhibits no discharge. No scleral icterus. Neck: Neck supple. Cardiovascular: Normal rate, regular rhythm and normal heart sounds. Exam reveals no gallop and no friction rub. No murmur heard. Pulmonary/Chest: Effort normal and breath sounds normal. No respiratory distress. He has no wheezes. He has no rales. He exhibits no tenderness. Abdominal: Soft. Bowel sounds are normal. He exhibits no distension. There is no hepatomegaly. There is no tenderness. There is no rebound, no guarding and no CVA tenderness. Genitourinary: Rectal-deferred Musculoskeletal: Normal range of motion. He exhibits no edema or tenderness. Lymphadenopathy: Head (right side): No submental, no submandibular, no tonsillar, no preauricular, no posterior auricular and no occipital adenopathy present. Head (left side): No submental, no submandibular, no tonsillar, no preauricular, no posterior auricular and no occipital adenopathy present. He has no cervical adenopathy. He has no axillary adenopathy. Right: No inguinal and no supraclavicular adenopathy present. Left: No inguinal and no supraclavicular adenopathy present. Neurological: He is alert and oriented to person, place, and time. No cranial nerve deficit. He exhibits normal muscle tone. Coordination normal. Skin: Skin is warm and dry. No rash noted. He is not diaphoretic. No erythema. No pallor. Psychiatric: He has a normal mood and affect. His behavior is normal. Judgment and thought content normal. Vitals reviewed. 01/11/2014 04/13/2014 02/07/2015 WBC 4.3 4.54 4.53 RBC 4.69 4.45 4.62 HCT 41.3 39.0 40.1 HGB 14.4 13.5 13.8 PLAT 219 202 208 CA 9.0 9.3 BUN 12 11 CREAT 0.8 0.73 EGFR >60 >60 T PROT 6.6 7.2 ALB 3.6 3.6 BILI T 0.42 0.41 ALK P 94 82 AST 26 22 ALT 23 23 NA 138 143 K 4.0 4.0 07/25/2014--CBC CMP reviewed --no concerns. Date PSA testosterone 06/06/2015 < 0.1 62 02/06/2015 < 0.1 27 11/02/2014 < 0.1 < 20 07/25/2014 < 0.1 < 20 04/13/2014 < 0.1 15 01/11/2014 < 0.1 < 20 09/30/2013 <0.1 <20 06/24/2013 <0.03 09/28/2012 57.2 08/27/2012 93.30 Assessment: Allen Cerda is a very pleasant 70 y.o. 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 Mr Cerda completed radiation in March 2013. PSA is undetectable. Testosterone above castrate level for the first time but remains low at 62 We reviewed his lab results. He has no/minimal residual side effects from radiation. He has mild fatigue and hot flashes from ADT. I reviewed the need for continued PSA monitoring. 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 His Frax score was 2.3% I reviewed potential late effects from radiation and side effects from ADT. He was again recommended to continue Vitamin D and calcium for bone health and to continue exercise. All questions were addressed. Plan: 1. F/U in six months with PSA, testosterone 3. Continue calcium and vitamin D Patient is to call if he has any questions or concerns. documented in this encounter Plan of Treatment Upcoming Encounters Date Type Department Care Team (Late st Contact Info) Description 04/15/2024 1:00 PM EST Office Visit Radiation Oncology at [address] [phone] Brenda Calvin PA [facility] DR HEMATOLOGY [place] [address] documented as of this encounter Visit Diagnoses Diagnosis Malignant neoplasm of prostate documented in this encounter Care Teams Lens Hardener Relationship Specialty Start Date End Date Howard Rayo MD [address] [place] [address] PCP - General 08/28/12 08/19/16 documented as of this encounter
--- OUTSIDE RECORDS SUMMARY | 2024-04-09 13:57 | XMS_ITS | Encounter Summary ---
Author Organization [facility] Address [facility] [place] [address] Care Team Providers Care Book Repairer Name Role Phone Moses Foster MD Primary Care Provider [phone] Encounter Details Date Type Department Care Team (Latest Contact Info) Description 04/10/2023 Travel Social History Tobacco Use Types Packs/Day Years [...] as of this encounter Plan of Treatment Upcoming Encounters Date Type Department Care Team (Late st Contact Info) Description 04/15/2024 1:00 PM EST Office Visit Radiation Oncology at [address] [phone] Brenda Calvin PA [facility] DR HEMATOLOGY [place] [address] documented as of this encounter Visit Diagnoses Not on filedocumented in this encounter Care Teams Book Repairer Relationship Specialty Start Date End Date Moses Foster MD PCP - General 08/20/16 documented as of this encounter
--- OUTSIDE RECORDS SUMMARY | 2024-04-09 13:57 | XMS_ITS | Clinical Summary ---
Author Organization [facility] Address [facility] [place] [address] Care Team Providers Care Surgical Services Manager Name Role Phone Moses Foster MD Primary Care Provider [phone] Allergies No known active allergies Medications Medication Sig Dispensed Refills Start Date End Date Status ibuprofen (ADVIL;MOTRIN) 200 mg tabletIndications:lara n,chronic back pain Take 400 mg by mouth every 6 hours as needed. Indications: Pain, chronic back pain Active calcium-vitamin D 500 mg(1,250mg) -200 unit Tablet Take 1 tablet by mouth 2 times daily (with meals). Reported on 06/13/2016 Active fish oil-omega-3 fatty acids 1,000 mg Capsule Take 2 g by mouth daily. Active GLUC HCL/CSANA/GLY-AM-GLY, MX/C (GLUCOSAM-CONDROITIN- GA GLYCN-C ORAL) Take by mouth daily. Active Active Problems Problem Noted Date Diagnosed Date Prostate cancer 12/25/2012 Cancer Staging:Clinical:Stage IIB(Free text: IIB - high risk) - Signed by Keven Smith MD on 02/03/2013 PSA elevation 09/22/2012 Prostate nodule 09/22/2012 Social History Tobacco Use Types Packs/Day Years [...] on file Sexual Orientation Not on file Last Filed Vital Signs Vital Sign Reading [...] Mass Index 23.88 04/10/2023 3:06 PM EST Plan of Treatment Upcoming Encounters Date Type Department Care Team (Late st Contact Info) Description 04/15/2024 1:00 PM EST Office Visit Radiation Oncology at [address] [phone] Brenda Calvin PA [facility] [address] [place] [address] Health Maintenance Due Date Last Done Comments Hepatitis C Screening 01[birth year]08/1963 Tetanus/Diphtheria/Pertussis Vaccines (1 - Tdap) 01/07 Pneumoccocal Vaccine: 65+ (1 of 1 - PCV) 01/08/1996 Zoster vaccine (1 of 2) 01/08/1996 Advance Directive 2001 RSV Vaccine (1 - 1-dose 75+ series) 2021 Covid-19 Vaccine (1 - season) 2023 Influenza (Flu) vaccine (1 o f 1 - Influenza standard series) 12/07/2023 Care Teams Surgical Services Manager Relationship Specialty Start Date End Date Moses Foster MD PCP - General 08/20/16
--- OUTSIDE RECORDS SUMMARY | 2024-04-09 13:57 | XMS_ITS | Encounter Summary ---
Author Organization Formerly [facility] [place] [address] Care Team Providers Care Anode Adjuster Name Role Phone Howard Rayo MD Primary Care Provider [phone] Encounter Details Date Type Department Care Team (Late st Contact Info) Description 06/13/2016 1:45 PM EST Office Visit Hematology/Oncology at [address] [phone] Yolande Rosa, [employer] Prostate cancer Social History Tobacco Use Types Packs/Day Years [...] Sign Reading Time Taken Comments Blood Pressure 127/80 06/13/2016 1:47 PM EST Pulse 69 06/13/2016 1:47 PM EST Temperature 36.8 ??C (98.2 ??F) 06/13/2016 1:47 PM ES T Respiratory Rate 18 06/13/2016 1:47 PM EST Oxygen Saturation 100% 06/13/2016 1:47 PM EST Inhaled Oxygen Concentration - - Weight 74.8 kg (164 lb 12.8 oz) 06/13/2016 1:47 PM EST Height - - Body Mass Index 25.81 10/29/2012 10:25 AM EDT documented in this encounter Patient Instructions * Patient Instructions* Yolande Rosa APRN - 06/13/2016 1:45 PM EST He will return for followup in 6 months with psa testosterone prior. documented in this encounter Progress Notes * Yolande Rosa APRN - 06/13/2016 1:45 PM EST Identification: Allen Cerda is a 71 y.o. 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 He was treated with [...] Prostatic core needle biopsy, left mid:1. Adenocarcinoma, Donny grade 4 + 3, involvingapproximately 60% of the fragmented needle biopsy core.2. Perineural invasion is present. I - Prostatic core needle biopsy, left apex:1. Adenocarcinoma, [place] grade 3 + 4, involvingapproximately 10% of the single biopsy core.2. Perineural invasion is present. J - Prostatic core needle biopsy, left lateral base:1. Adenocarcinoma, [place] grade 4 + 5, involvingapproximately 70% of the single biopsy core (seeComment).2. Focus of intraluminal cancer, suspicious for lymphatic invasion. K - Prostatic core needle biopsy, left lateral mid:adenocarcinoma, Donny grade 4 + 4, involving [id number]% of the single biopsy core. L - Prostatic core needle biopsy, left lateral apex:Adenocarcinoma, [place] grade 3 + 3, involving less than 5%of the single biopsy core. M - Prostatic core needle biopsy, left nodule x 2:Adenocarcinoma, [place] grade 4 + 4, involving [id number]% of the multiple needle biopsy core fragments. [...] metastases. IPSS: 1 TRUS:46cc ALVINA: 25 TREATMENT: [facility] ADT FOR 28 MONTHS PLANNED. Radiotherapy: Treatment: Definitive radiation with Neoadjuvant/Concurrent/Adjuvant Androgen Deprivation. PROSTATE Plan Start Tx Last Tx Elapsed Days Fractions Dose (cGy) PTV1 Pelvis 01/14/2013 02/17/2013 34 25 / 25 @ 180.0 cGy 4500 / 4500 Energy Mode: 10X Treatment Type: Rapid Arc PTV3 Prostate 03/15/2013 03/19/2013 4 5 / 5 @ 180.0 cGy 900 / 900 [...] Biopsy 10/05/2012 Volume in cc 46 cc [place] grade/score a+b=c 4+5=9 Total Cores 13 biopsy [...] Problem List Diagnosis Code ??? PSA elevation R97.20 ??? Prostate nodule N40.2 ??? Prostate cancer C61 ---arthritis No past surgical history on file. No Known Allergies Current Outpatient Prescriptions on File Prior to Visit Medication Sig Dispense Refill ??? GLUC HCL/CSANA/GLY-AM-GLY,MX/C ([id number] GLYCN-C ORAL) Take by mouth daily. ??? calcium-vitamin D 500 mg(1,250mg) -200 unit Tablet Take 1 tablet by mouth 2 times daily (with meals). Reported on 06/13/2016 ??? fish oil-omega-3 fatty acids 1,000 mg Capsule Take 2 g by mouth daily. ??? ibuprofen (ADVIL;MOTRIN) 200 mg tablet Take 400 mg by mouth every 6 hours as needed. Indications: Pain, chronic back pain No current facility-administered medications on file prior to visit. Social History Social History ??? Marital status: Spouse name: N/A ??? Number of children: N/A ??? Years of education: N/A Occupational History ??? Not on file. Social History Main Topics ??? Smoking status: Former Smoker Types: Pipe, Cigars Quit date: 06/24/1986 ??? Smokeless tobacco: Former User Types: Chew Comment: quit smoking 1979' & chewing 20 yrs ago ??? Alcohol use Yes Comment: ocassional beer, usually in the summer ??? Drug use: Not on file ??? Sexual activity: Not on file Other Topics Concern ??? [...] colonoscopy done 12/29/2012 and four polyps were removed.Based on the pathology he will have another colonoscopy in 2022. He has no bladder issues. He denies dysuria, hematu andrés and incontinence His IPSS is stable at 3. He indicates that he is delighted with his urinary function. International Prostate Symptom Score Total Score__3___ 0 1 2 3 4 5 Not at all Less than one time in five Less than half of the time About half of the time More than half of the time Almost always Incomplete emptying X frequency X intermittency X urgency x Weak stream X Flow resistance X Not at all Every eight hours Every four hours Every three hours Every 2 hours Every hour nocturia X He is not sexually active--ALVINA=0 Review of Systems Constitutional: Negative. Negative for activity change. 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 Hot flashes--do not interfere with sleep--energy level is good. No breast tenderness HENT: Negative. Eyes: Negative. Respiratory: Negative. Negative [...] arthralgias. Back is feeling better overall Skin: negative Neurological: Negative. Negative for weakness. Hematological: Negative. Psychiatric/Behavioral: Negative. KPS: 100 Temp: [36.8 ??C (98.2 ??F)] Heart Rate: [69] Resp: [18] BP: (127)/(80) SpO2: [100 %] Heart Rate from SPO2: -- Physical Exam Constitutional: He is oriented to person, place, and time. He appears well- developed and well-nourished. No distress. HENT: Head: Normocephalic and atraumatic. Eyes: Conjunctivae and EOM are normal. Neck: Neck supple. Cardiovascular: Normal rate, regular rhythm and normal heart sounds. No murmur heard. Pulmonary/Chest: Effort normal and breath sounds normal. No respiratory distress. . Abdominal: Soft. Bowel sounds are normal. He exhibits no distension. There is no hepatomegaly. There is no tenderness. ss. Genitourinary: Rectal-deferred Musculoskeletal: Normal range of motion. He exhibits no edema or tenderness. Lymphadenopathy: He has no cervical adenopathy. He has [...] Judgment and thought content normal. Vitals reviewed. Date PSA testosterone 06/06/16 <0.1 150 12/06/15 <0.1 99 06/06/2015 < 0.1 62 02/06/2015 < 0.1 27 11/02/2014 < 0.1 < 20 07/25/2014 < 0.1 < 20 04/13/2014 < 0.1 15 01/11/2014 < 0.1 < 20 09/30/2013 <0.1 <20 06/24/2013 <0.03 09/28/2012 57.2 08/27/2012 93.30 Assessment: Allen Cerda is a very pleasant 71 y.o.. 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 Mr Cerda completed radiation in March 2013. PSA is undetectable. Testosterone above castrate level but remains low at 150. It is gradually rising. We reviewed his lab results. He has no/minimal residual side effects from radiation. His energy level is good and he continues to have mild hot flashes. I reviewed the need for continued PSA monitoring. He was again recommended to continue Vitamin D and calcium for bone health and to continue exercise. All questions were addressed. Plan: 1. F/U in six months with PSA, testosterone 3. Continue calcium and vitamin D. He will need to repeat a dexa scan again in 2018. Patient is to call if he has any questions or concerns. documented in this encounter Plan of Treatment Upcoming Encounters Date Type Department Care Team (Late st Contact Info) Description 04/15/2024 1:00 PM EST Office Visit Radiation Oncology at [address] [phone] Brenda Calvin PA [facility] [place] [address] documented as of this encounter Visit Diagnoses Diagnosis Prostate cancer Malignant neoplasm of prostate documented in this encounter Care Teams Anode Adjuster Relationship Specialty Start Date End Date Howard Rayo MD [facility] [address] [place] [address] PCP - General 08/28/12 08/19/16 documented as of this encounter
--- OUTSIDE RECORDS SUMMARY | 2024-04-09 13:57 | XMS_ITS | Encounter Summary ---
Author Organization [facility] [place] [address] Care Team Providers Care Nurse Administrator Name Role Phone Moses Foster MD Primary Care Provider [phone] Encounter Details Date Type Department Care Team (Late Contact Info) Description 03/15/2022 Telephone Radiation Oncology at [address] [phone] Fady Mark Social History Tobacco Use Types Packs/Day Years [...] Encounters Date Type Department Care Team (Late Contact Info) Description 04/15/2024 1:00 PM EST Office Visit Radiation Oncology at [address] [phone] Brenda Calvin PA [facility] [address] [place]AT[place]Y [place] [address] documented as of this encounter Visit Diagnoses Not on filedocumented in this encounter Care Teams Nurse Administrator Relationship Specialty Start Date End Date Moses Foster MD PCP - General 08/20/16 documented as of this encounter
--- OUTSIDE RECORDS SUMMARY | 2024-04-09 13:57 | XMS_ITS | Encounter Summary ---
Author Organization [facility] [place] [address] Care Team Providers Care Popcorn Attendant Name Role Phone Howard Rayo MD Primary Care Provider [phone] Reason for Visit * Reason Comments Injections Lupron Encounter Details Date Type Department Care Team (Late st Contact Info) Description 11/02/2014 2:30 PM EDT Infusion Hematology Oncology at [address] [phone] CLINIC, DR MARTINEZ HEM/ONC Malignant neoplasm of prostate Social History Tobacco [...] on file documented as of this encounter Progress Notes * Flory Dias RN - 11/02/2014 2:47 PM EDT Infusion Note Diagnosis:Prostate Cancer Treatment: Lupron Injection Lupron 22.5 mg injected in right buttocks Patient instructed on side effects of Lupron. Patient states understanding of teaching, Patient aware to call clinic with any questions or concerns. Plan: Return to clinic as scheduled. documented in this encounter Plan of Treatment Upcoming Encounters Date Type Department Care Team (Late st Contact Info) Description 04/15/2024 1:00 PM EST Office Visit Radiation Oncology at [address] [phone] Brenda Calvin PA [facility] [place] [address] documented as of this encounter Visit Diagnoses Diagnosis Malignant neoplasm of prostate documented in this encounter Administered Medications Inactive Administered Medications - up to 3 most recent administrations Medication Order MAR Action Action Date Dose Rate Site leuprolide (LUPRON) injection 22.5 mg 22.5 mg, Intramuscular, ONCE, 1 dose, On Fri11/02/14 at 1500, Routine Given 11/02/2014 2:44 PM EDT 22.5 mg Right Gluteal documented in this encounter Care Teams Popcorn Attendant Relationship Specialty Start Date End Date Howard Rayo MD [facility] [address] [place] [address] PCP - General 08/28/12 08/19/16 documented as of this encounter
--- OUTSIDE RECORDS SUMMARY | 2024-04-09 13:57 | XMS_ITS | Encounter Summary ---
Author Organization [facility] [place] [address] Care Team Providers Care Anti Tank Missileman Name Role Phone Moses Foster MD Primary Care Provider [phone] Encounter Details Date Type Department Care Team (Late st Contact Info) Description 02/25/2020 9:45 AM EST Office Visit Radiation Oncology at [address] [phone] Yolande Rosa APRN Prostate cancer Social History Tobacco Use Types [...] Sign Reading Time Taken Comments Blood Pressure 204/100 02/25/2020 9:53 AM EST 173 96 by machine Pulse 72 02/25/2020 9:53 AM EST Temperature 36.3 ??C (97.4 ??F) 02/25/2020 9 :53 AM EST Respiratory Rate 20 02/25/2020 9:53 AM EST Oxygen Saturation 99% 02/25/2020 9:5 3 AM EST Inhaled Oxygen Concentration - - Weight 70.3 kg (155 lb) 02/25/2020 9:53 AM EST Height 167.6 cm (5' 6) 02/25/2020 9:53 AM EST Body Mass Index 25.02 02/25/2020 9:53 AM EST documented in this encounter Patient Instructions * Patient Instructions* Yolande Rosa APRN - 02/25/2020 9:45 AM EST He will return in one year for followup with labs prior documented in this encounter Progress Notes * Yolande Rosa APRN - 02/25/2020 9:45 AM EST Images from the original note were not included. Identification: Allen Cerda is a 75 y.o. year-old male with high risk prostate [...] Prostatic core needle biopsy, left base: Adenocarcinoma, Farrar grade 4 + 3, involving approximately 50% of the single biopsy core. H - Prostatic core needle biopsy, left mid:1. Adenocarcinoma, Donny grade 4 + 3, involvingapproximately 60% of the fragmented needle biopsy core.2. Perineural invasion is present. I - Prostatic core needle biopsy, left apex:1. Adenocarcinoma, Farrar grade 3 + 4, involvingapproximately 10% of the single biopsy core.2. Perineural invasion is present. J - Prostatic core needle biopsy, left lateral base:1. Adenocarcinoma, Donny grade 4 + 5, involvingapproximately 70% of the single biopsy core (seeComment).2. Focus of intraluminal cancer, suspicious for lymphatic invasion. K - Prostatic core needle biopsy, left lateral mid:adenocarcinoma, Farrar grade 4 + 4, involving [id number]% of the single biopsy core. L - Prostatic core needle biopsy, left lateral apex:Adenocarcinoma, Donny grade 3 + 3, involving less than 5%of the single biopsy core. M - Prostatic core needle biopsy, left nodule x 2:Adenocarcinoma, Farrar grade 4 + 4, involving [id number]% of the multiple needle biopsy core fragments. [...] metastases. IPSS: 1 TRUS:46cc ALVINA: 25 TREATMENT: DIVISION DIRECTOR ADT FOR 28 MONTHS PLANNED. Radiotherapy: Treatment: [...] reviewed with patient 01/20/2014--see after visit summary and problem list Prostate Cancer Notes 10/27/2013, update 04/21/2014, update 02/09/2015 Date of Presentation 08/27/2012 Age at Presentation 67 years old PSA at Presentation 93.30 on 08/27/2012, and 57.2 on 09/28/2012 Presence of Symptoms at Presentation negative Ethnicity White Result of CANDIS Abnormal Date of TRUS and Biopsy 10/05/2012 Volume in cc 46 cc Farrar grade/score a+b=c 4+5=9 Total Cores 13 biopsy [...] surgical history on file. No Known Allergies Medications 02/25/20 1217 Medication Sig Taking? GLUC HCL/CSANA/GLY-AM-GLY,MX/C ([id number]-PU GLYCN-C ORAL) Take by mouth daily. Yes calcium-vitamin D 500 mg(1,250mg) -200 unit Tablet Take 1 tablet by mouth 2 times daily (with meals). Reported on 06/13/2016 Yes fish oil-omega-3 fatty acids 1,000 mg Capsule Take 2 g by mouth daily. Yes ibuprofen (ADVIL;MOTRIN) 200 mg tablet Take 400 mg by mouth every 6 hours as needed. Indications: Pain, chronic back pain Social History Socioeconomic History ??? Marital status: Spouse name: Not on file ??? Number of children: Not on file ??? Years of education: Not on file ??? Highest education level: Not on file Occupational History ??? Not on file Social Needs ??? Financial resource strain: Not on file ??? Food insecurity Worry: Not on file Inability: Not on file ??? Transportation needs Medical: Not on file Non-medical: Not on file Tobacco Use ??? Smoking status: Former Smoker Types: Pipe, Cigars Quit date: 06/24/1986 Years since quittin.6 ??? Smokeless tobacco: Former User Types: Chew ? ? Tobacco comment: quit smoking & chewing 20 yrs ago Substance and Sexual Activity ??? Alcohol use: Yes Comment: ocassional beer, usually in the summer ??? Drug use: Not on file ??? Sexual activity: Not on file Lifestyle ??? Physical activity Days per week: Not on file Minutes per session: Not on file ??? Stress: Not on file Relationships ??? Social connections Talks on phone: Not on file Gets together: Not on file Attends latter-day service: Not on file Active member of club or organization: Not on file Attends meetings of clubs or organizations: Not on file Relationship status: Not on file ??? Intimate partner violence Fear of current or ex partner: Not on file Emotionally abused: Not on file Physically abused: Not on file Forced sexual activity: Not on file Other Topics Concern ??? Not on file Social History Narrative ??? Not on file Advance Directive: see advance care planning note. Interim History: Mr Cerda reports that he is feeling well with no new health issues since he was last seen in clinic. He remains active working around his property and tolerating this. He has been exercising regularly. He has no pain. He has no bowel issues. He reports no constipation, no diarrhea, no hematochezia and no melena.--Mr Cerda had a colonoscopy done 12/29/2012 and four polyps were removed. Mr Cerda has no bladder issues. He denies dysuria, hematuria and incontinence He indicates that he is delighted with his urinary function. He is not sexually active Expanded Prostate Cancer Index Composite For Clinical Practice (Epic-Cp) Question 02/04/2019 ??9:47 AM EDT - Filed by Patient on 02/04/2019 Urinary function problem No Problem Urinary control Total control # of pads used per day None Urinary dripping/leakage problem No problem 5. How big a problem, if any, has each of the following been for you? Pain or burning with urination No problem 5. How big a problem, if any, has each of the following been for you? Weak urine stream/incomplete bladder emptying No problem 5. How big a problem, if any, has each of the following been for you? Need to urinate frequently No problem 6. How big a problem, if any, has each of the following been for you? Rectal pain or urgency of bowel movements No problem 6. How big a problem, if any, has each of the following been for you? Increased frequency of your bowel movements No problem 6. How big a problem, if any, has each of the following been for you? Overall problems with your bowel movements No problem 6. How big a problem, if any, has each of the following been for you? Bloody stools No problem Ability to reach orgasm Poor Quality of your erections None at all Problem with sexual function or lack of it No problem 10. How big a problem, if any, has each of the following been for you? Hot flashes or breast tenderness/enlargement No problem 10. How big a problem, if any, has each of the following been for you? Feeling depressed No problem 10. How big a problem, if any, has each of the following been for you? Lack of energy No problem Urinary Incontinence Symptom Score (range: 0 - 12) 0 Urinary Irritation/Obstructive Symptom Score (range: 0 - 12) 0 Bowel Symptom Score (range: 0 - 16) 0 Vitality/Hormonal Symptom Score (range: 0 - 12) 0 Overall Prostate Cancer QOL Score (range: 0 - 60) 0 Q - Prostate Followup Survey Question 02/04/2019 ??9:58 AM EDT - Filed by Patient on 02/04/2019 Reason for visit Follow up on existing problem(s) Incomplete emptying Not at all Frequency Not at all Intermittency Not at all Urgency Less than 1 time in 5 Weak Stream Not at all Straining Not at all Nocturia None Quality of life Delighted Total IPSS Score (range: 0 - 35) 1 ( Mild LUTS) Confidence, level - past 6 months Very low Penetration - past 6 months No sexual activity Penetration, maintain - past 6 months Did not attempt intercourse Erection, maintain - past 6 months Did not attempt intercourse Sexual satisfaction - past 6 months Did not attempt intercourse Sexual Health in Men (range: 1 - 21) 1 (Severe ED) Review of Systems Constitutional: Negative. Negative for activity change and unexpected weight change. 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 HENT: Negative. Eyes: Negative. Respiratory: Negative. Negative for cough, chest tightness, shortness of breath and wheezing. Cardiovascular: Negative. Negative for chest pain and leg swelling. Gastrointestinal: Negative. Negative for abdominal distention, abdominal pain, blood in stool, constipation, diarrhea and rectal pain. See interim history Genitourinary: Negative. Negative for decreased urine volume, difficulty urinating, dysuria, enuresis, frequency, hematuria and urgency. See interim history Musculoskeletal: Negative. Negative for arthralgias. Back is feeling better overall Skin: Negative. Neurological: Negative. Negative for weakness. Hematological: Negative. Psychiatric/Behavioral: Negative. Negative for sleep disturbance. KPS: 100 Temp: [36.3 ??C (97.4 ??F)] Heart Rate: [72] Resp: [20] BP: (204)/(100) SpO2: [99 %] Heart Rate from SpO2: -- Physical Exam Constitutional: He is oriented to person, place, and time. He appears well- developed and well-nourished. No distress. HENT: Head: Normocephalic and atraumatic. Eyes: Conjunctivae and EOM are normal. Right eye exhibits no discharge. Left eye exhibits no discharge. No scleral icterus. Neck: Trachea normal and normal range of motion. Neck supple. Carotid bruit is not present. Cardiovascular: Normal rate, regular rhythm and normal heart sounds. Exam reveals no gallop and no friction rub. No murmur heard. Pulmonary/Chest: Effort normal and breath sounds normal. No respiratory distress. He has no wheezes. He has no rales. He exhibits no tenderness. Abdominal: Soft. Bowel sounds are normal. He exhibits no distension. There is no hepatomegaly. There is no abdominal tenderness. There is no rebound, no guarding and no CVA tenderness. Genitourinary: Prostate and rectum normal. Rectum: Guaiac result negative. Genitourinary Comments: Rectal-good sphincter tone. Prostate is flat, smooth, no induration, no tenderness. Guaiac negative Musculoskeletal: Normal range of motion. General: No tenderness, deformity or edema. Lymphadenopathy: Head (right side): No submental, no submandibular, no tonsillar, no preauricular, no posterior auricular and no occipital adenopathy present. Head (left side): No submental, no submandibular, no tonsillar, no preauricular, no posterior auricular and no occipital adenopathy present. He has no cervical adenopathy. He has no axillary adenopathy. Right: No supraclavicular adenopathy present. Left: No supraclavicular adenopathy present. Neurological: He is alert and oriented to person, place, and time. No cranial nerve deficit. He exhibits normal muscle tone. Coordination normal. Skin: Skin is warm and dry. No rash noted. He is not diaphoretic. No erythema. No pallor. Psychiatric: He has a normal mood and affect. His behavior is normal. Judgment and thought content normal. Vitals reviewed. His exam remains quite stable. Date PSA Testosterone (range 240 to 950) 02/15/2020 0.2 01/28/2019 0.1 319 12/11/2017 0.1 244 06/05/2017 0.1 225 12/04/2016 < 0.1 215 06/06/16 <0.1 150 12/06/15 <0.1 99 06/06/2015 < 0.1 62 02/06/2015 < 0.1 27 11/02/2014 < 0.1 < 20 07/25/2014 < 0.1 < 20 04/13/2014 < 0.1 15 01/11/2014 < 0.1 < 20 09/30/2013 <0.1 <20 06/24/2013 <0.03 ?? 09/28/2012 57.2 ?? 08/27/2012 93.30 ?? 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 Mr Cerda completed radiation in March 2013. PSA is detectable but remains very low at 0.2. We reviewed his lab results. He has no side effects from radiation. I reviewed the need for continued PSA monitoring. Due to alf ADT he had a DEXA scan done on 06/05/2017 which did demonstrate some osteopenia Z= -1.4. His Frax score was 2.3%. He will continue with supplemental calcium and vitamin D and he continues with weight bearing exercise. He is taking calcium and vitamin D. I reviewed potential late effects from radiation and side effects from ADT. Hypertension- his blood pressure was quite high today. He is not on any medication. He has had issues with it in the past when he comes to a providers office. He does have a blood pressure cuff at home. He will monitor it and contact his PCP if it remains elevated. All questions were addressed. Plan: 1. He is now 7 years from completion of treatment and per [facility] guidelinew we will do ongoing surveillance once a year with PSA 3. Continue calcium and vitamin D Patient is to call if he has any questions or concerns. documented in this encounter Plan of Treatment Upcoming Encounters Date Type Department Care Team (Late st Contact Info) Description 04/15/2024 1:00 PM EST Office Visit Radiation Oncology at [address] [phone] Brenda Calvin PA [facility] [place] [address] documented as of this encounter Visit Diagnoses Diagnosis Prostate cancer Malignant neoplasm of prostate documented in this encounter Care Teams Anti Tank Missileman Relationship Specialty Start Date End Date Moses Foster MD PCP - General 08/20/16 documented as of this encounter
--- OUTSIDE RECORDS SUMMARY | 2024-04-09 13:57 | XMS_ITS | Encounter Summary ---
Author Organization [facility] [place] [address] Care Team Providers Care Ice Cream Server Name Role Phone Moses Foster MD Primary Care Provider [phone] Encounter Details Date Type Department Care Team (Late st Contact Info) Description 11/05/2018 Orders Only Radiation Oncology at [address] [phone] Joana Layton APRN Malignant neoplasm of prostate Social History Tobacco [...] PM EST Office Visit Radiation Oncology at [address] [phone] Brenda Calvin PA [facility] [address] [place] [address] documented as of this encounter Visit Diagnoses Diagnosis Malignant neoplasm of prostate documented in this encounter Care Teams Ice Cream Server Relationship Specialty Start Date End Date Moses Foster MD PCP - General 08/20/16 documented as of this encounter
--- OUTSIDE RECORDS SUMMARY | 2024-04-09 13:57 | XMS_ITS | Encounter Summary ---
Author Organization [facility] [place] [address] Care Team Providers Care Smudger Name Role Phone Moses Foster MD Primary Care Provider [phone] Encounter Details Date Type Department Care Team (Late st Contact Info) Description 03/26/2022 1:45 PM EST Office Visit Radiation Oncology at [address] [phone] Gina Luna APRN [facility] [place] [address] Prostate cancer (Primary Dx) Social History Tobacco Use Types Packs/Day Years [...] Sign Reading Time Taken Comments Blood Pressure 168/84 03/26/2022 1:00 PM EST Pulse 72 03/26/2022 1:00 PM EST Temperature 36.9 ??C (98.4 ??F) 03/26/2022 1:00 PM ES T Respiratory Rate 18 03/26/2022 1:00 PM EST Oxygen Saturation 100% 03/26/2022 1:00 PM EST Inhaled Oxygen Concentration - - Weight 69.6 kg (153 lb 6.4 oz) 03/26/2022 1:00 P M EST Height - - Body Mass Index 24.77 02/27/2021 12:58 PM EST documented in this encounter Progress Notes * Gina Luna, ROVER TENDER - 03/26/2022 1:45 PM ESTSummary: 77 year old M dx 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 completed EBRT on 03/19/2013 Images from the original note were not included. [facility] [place] [address] Phone: RADIATION ONCOLOGY FOLLOW UP NOTE Date of visit: 03/19/2022 Patient Allen Cerda 1945 PCP: Moses Foster MD Urologist: Radiation oncologist: Dr. Abraham In [facility] at first and then Dr Smith for [facility]. Chief Complaint: follow up/labs for prostate cancer Time since completed RT:03/19/2013 ADT:28 months completed Current treatment:Surveillance HPI: Allen Cerda is a 75 y.o. year-old male with high risk prostate cancer, T2a, [place] 4+5=9, PSA 57.2. He was treated with radiation therapy 79.2 Gy and completed treatment on 03/19/2013. He had hislast injection of Lupron on 11/02/2014 completing 28 months of androgen deprivation. He is in clinicfor scheduled follow up. ?? HPI Lab work performed by Dr. Rayo showed [...] Prostatic core needle biopsy, left base: Adenocarcinoma, [place] grade 4 + 3, involving approximately 50% of the single biopsy core. H - Prostatic core needle biopsy, left mid:1. Adenocarcinoma, [place] grade 4 + 3, involvingapproximately 60% of the fragmented needle biopsy core.2. Perineural invasion is present. I - Prostatic core needle biopsy, left apex:1. Adenocarcinoma, [place] grade 3 + 4, involvingapproximately 10% of the single biopsy core.2. Perineural invasion is present. J - Prostatic core needle biopsy, left lateral base:1. Adenocarcinoma, [place] grade 4 + 5, involvingapproximately 70% of the single biopsy core (seeComment).2. Focus of intraluminal cancer, suspicious for lymphatic invasion. K - Prostatic core needle biopsy, left lateral mid:adenocarcinoma, [place] grade 4 + 4, involving [id number]% of the single biopsy core. L - Prostatic core needle biopsy, left lateral apex:Adenocarcinoma, [place] grade 3 + 3, involving less than 5%of the single biopsy core. M - Prostatic core needle biopsy, left nodule x 2:Adenocarcinoma, [place] grade 4 + 4, involving [id number]% of the multiple needle biopsy core fragments. ?? His other work-up has included: MRI Pelvis 10/20/12 Impression 1. Markedly enlarged heterogeneous prostate with pre-existing benign prostatic hypertrophy. In addition, there are low signal intensity foci on T2 images within the peripheral zone consistent with/concerning for prostate cancer. One is quite circumscribed and measures 2 cm. No MR findings to suggest extracapsular extension. No adenopathy. Bone Scan: 10/20/12 Impression No skeletal metastases. IPSS: 1 TRUS:46cc ALVINA: 25 TREATMENT: SENIOR CARE ADT FOR 28 MONTHS PLANNED. Radiotherapy: Treatment: Definitive radiation with Neoadjuvant/Concurrent/Adjuvant Androgen Deprivation. PROSTATE Plan Start Tx Last Tx Elapsed Days Fractions Dose (cGy) PTV1 Pelvis 01/14/2013 02/17/2013 34 25 / 25 @ 180.0 cGy 4500 / 4500 Energy Mode: 10X ? Treatment Type: Rapid Arc ? PTV3 Prostate 03/15/2013 03/19/2013 4 5 / 5 @ 180.0 cGy 900 / 900 Energy Mode: 10X ? Treatment Type: Rapid Arc ? PTV2 Prost_SV 02/18/2013 03/12/2013 22 @ 180.0 cGy 2520 / 2520 Energy Mode: 10X ? Treatment Type: Rapid Arc ? Total C1 PROSTATE dose: 7920.0 cGy ? Total Dose: 7920.0 cGy ? Treatment summary reviewed with patient 01/20/2014--see after visit summary and problem list Prostate Cancer Notes 10/27/2013, update 04/21/2014, update 02/09/2015 Date of Presentation 08/27/2012 Age at Presentation 67 years old PSA at Presentation 93.30 on 08/27/2012, and 57.2 on 09/28/2012 Presence of Symptoms at Presentation negative Ethnicity White Result of CANDIS Abnormal Date of TRUS and Biopsy 10/05/2012 Volume in cc 46 cc [place] grade/score a+b=c 4+5=9 Total Cores 13 biopsy [...] left hip with Frax xcore of 2.3% ? Interim HPI: Mr. Alas was a little bit nervous about what his PSA reading would be today. It is 0.15 still low and stable over many years. He is now 9 years out from under treatment. He denies any urinary problems, no hematuria, no urgency, no burning or pain with urination. He is up approximately twice at night to urinate and then goes right back to sleep. He is has normal bowel movements without any blood in his stool. He has good energy and cuts about 4 cords of wood for himself and his for the season. We talked about him exercising and climbing [employer] in good season. Stays healthy and active. He denies having any bone pain. He has gotten approximately 4 COVID boosters at this point and he and have stayed healthy. He has not had any problems with pneumonia, flu, COVID or RSV. He is declining CANDIS as his primary care does that for him once a year. He sees Moses Foster MD approximately every 6 months. He has no concerning health issues at this time. Medications 02/27/21 1301 Medication Sig Taking? GLUC HCL/CSANA/GLY-AM-GLY,MX/C ([id number] GLYCN-C ORAL) Take by mouth daily. calcium-vitamin D 500 mg(1,250mg) -200 unit Tablet Take 1 tablet by mouth 2 times daily (with meals). Reported on 06/13/2016 fish oil-omega-3 fatty acids 1,000 mg Capsule Take 2 g by mouth daily. ibuprofen (ADVIL;MOTRIN) 200 mg tablet Take 400 mg by mouth every 6 hours as needed. Indications: Pain, chronic back pain No Known Allergies Past Medical History: Diagnosis Date ??? Arthritis ??? Prostate nodule 09/22/2012 ??? PSA elevation 09/22/2012 No past surgical history on file. No family history on file. Social History Tobacco Use ??? Smoking status: Former Types: Pipe, Cigars Quit date: 06/24/1986 Years since quittin.7 ??? Smokeless tobacco: Former Types: Chew ??? Tobacco comments: quit smoking & chewing 20 yrs ago Substance Use Topics ??? Alcohol use: Yes Comment: ocassional beer, usually in the summer Review of Symptoms: I reviewed the IPSS/ALVINA/Epic-Cp survey results from today Not given to pt. Patient concerns for today's visit: General:no problems Fatigue:denies any fatigue Weight/appetite/diet no issues with appetite or wt changes Respiratory:no respiratory infections GI:no n/v/d/c, no blood in stool :no LUTS, no hematuria Endocrine:still does have some flushing but not a problem. 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 Exercise:walks in the [facility] Smoking:former pipe and cigar smoker quit in 1986 Alcohol:occaissional beer in the summer Support/ social relationships:Argenis Cerda spouse Advanced directives not discussed Financial/transportation concerns:none at this time Performance Status: KPS Score ECOG Grade Definition x 90-100 0 Fully active, able to carry on all pre-disease performance without restriction 70-80 1 Restricted in physically strenuous activity but ambulatory and able to carry out work of a light or sedentary nature, e.g., light house work, office work 50-60 2 Ambulatory and capable of all selfcare but unable to carry out any work activities; up and about more than 50% of waking hours 30-40 3 Capable of only limited selfcare; confined to bed or chair more than 50% of waking hours 10-20 4 Completely disabled; cannot carry on any selfcare; totally confined to bed or chair Physical Examination: Body mass index is 24.77 kg/m??. BP 168/84 (Patient Position: Sitting) Pulse 72 Temp 36.9 ??C (98.4 ??F) Resp 18 Wt 69.6 kg (153 lb 6.4 oz) Constitutional: seen in clinic no distress HENT: normocephalic, anicteric, neck supple Cardiovascular: Rate and Rhythm: Normal rate and regular rhythm. Pulmonary: Effort: Pulmonary effort is normal. No cough, congestion or wheezing, no shortness of breath. Genitourinary: Rectum: Patient declined at this visit as his primary care does a digital rectal exam. Musculoskeletal: Normal range of motion. General: No swelling or deformity. Comments: Ambulates without assistance Skin: General: Skin is warm and dry. Neurological: General: No focal deficit present. Mental Status: alert and oriented to person, place, and time. Gait: Gait normal. Psychiatric: Mood and Affect: Mood normal. Behavior: Behavior normal. Thought Content: Thought content normal. Judgment: Judgment normal. New Labs Reviewed this visit: Date PSA Test Notes 03/20/22 0.15 02/27/21 0.13 Date PSA Testosterone (range 240 to 950) 12/11/2017 0.1 244 06/05/2017 0.1 225 12/04/2016 < 0.1 215 06/06/16 <0.1 150 12/06/15 <0.1 99 06/06/2015 < 0.1 62 02/06/2015 < 0.1 27 11/02/2014 < 0.1 < 20 07/25/2014 < 0.1 < 20 04/13/2014 < 0.1 15 01/11/2014 < 0.1 < 20 09/30/2013 <0.1 <20 06/24/2013 <0.03 ?? 09/28/2012 57.2 ?? 08/27/2012 93.30 ?? Assessment: 77 y.o. presenting for follow up/ lab for prostate cancer Allen Cerda is a very pleasant 77 y.o. year-old male with high risk prostate cancer, T2a, [place] 4+5=9, PSA 57.2 s/p definitive radiation with neoadjuvant/concurrent androgen deprivation (combined androgen blockade) who completed androgen deprivation (Lupron) with his last injection on 11/02/2014 c ompleting 28 months of therapy. Mr Cerda completed radiation in March 2013. PSA is detectable but remains very low at 0.15. We reviewed his lab results. He has no side effects from radiation. I reviewed the need for continued yearly PSA monitoring. 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 Plan: 1. Per NCCC guidelinew we will do ongoing surveillance once a year with PSA 3. Continue calcium and vitamin D Medical Decision Making/Recommendations/Plan: # prostate cancer: reviewed PSA results . No concerning reported symptoms or physical examination findings today # effects of EBRT: Acute: 1. LUTS (lower urinary tract symptoms) 2. Bowel dysfunction 3. Sexual health/Erectile Dysfunction 4. Fatigue 5. Mood changes Late: We reviewed potential late effects of radiation that require medical evaluation including : 1. Changes in urinary flow/difficulty passing urine (scarring from radiation) 2. Blood in urine (may be infection, inflammation bladder wall (cystitis), formation of telangiectasia (small, thin blood vessels that are dilated or broken, near the surface of the bladder and may bleed) or bladder/genitourinary cancer 3. Blood in bowel movements (stools)- maybe from hemorrhoids, telangiectasia from radiation, colorectal cancer Symptoms that you should bring to the attention of your provider: Difficulty or changes in your urine flow Blood in your urine or stool # ADT:not at this time # survivorship/lifestyle/wellness: Genetic Risk Evaluation: Body weight/nutrition, no changes Exercise:walks in [place] Bone health:bones are good but has arthritis, osteoarthritis. Smoking:cigars, pipe, chew, quit in 80s. Alcohol: q 2 weeks pizza and beer Annual exam with PCP:Once per year, annual check up in October. Up to date on vaccinations:Moderna vax x 2 and booster January 29 Colorectal screening:colonoscopy done 12/29/2012 and four polyps were removed. Had one since at [facility]. Lung cancer screening: # resources provided:none provided # referrals done: None at this time # follow up: Per NCCN guidelines, PSA and history/physical every 6-12 months X 5 years, then annually. Annual CANDIS (unless PSA undetectable or prostatectomy). PSA may be checked more frequently depending on risk level or other patient specific factors. Next visit:one year Labs: PSA Allen Cerda had the opportunity to ask questions and I answered them to the best of my knowledge. Allen Kitchenuld agreed to contact radiation oncology in between visits if he has any questions/concerns or new symptoms in regards to the radiation therapy/prostate cancer Gina Luna MSN, ROVER TENDER, LITHOGRAPHIC RETOUCHER APPRENTICE-C Nurse Practitioner Radiation Oncology documented in this encounter Plan of Treatment Upcoming Encounters Date Type Department Care Team (Late st Contact Info) Description 04/15/2024 1:00 PM EST Office Visit Radiation Oncology at [address] [phone] Brenda Calvin PA [facility] DR [place] [address] documented as of this encounter Visit Diagnoses Diagnosis Prostate cancer- Primary Malignant neoplasm of prostate documented in this encounter Care Teams Smudger Relationship Specialty Start Date End Date Moses Foster MD PCP - General 08/20/16 documented as of this encounter
--- OUTSIDE RECORDS SUMMARY | 2024-04-09 13:57 | XMS_ITS | Clinical Summary ---
Author Organization [facility] Address [address] [place] [address] Care Team Providers Care Cd Mixer Helper Name Role Phone Unknown, Provider Primary Care Provider Unava ilable Social History Tobacco Use Types Packs/Day Years Used Date Smoking Tobacco: Never Assessed Sex and Gender Information Value Date Recorded Sex Assigned at Not on file Legal Sex Male 8:08 EDT Gender Identity Not on file Sexual Orientation Not on file Plan of Treatment Health Maintenance Due Date Last Done Comments Hepatitis C Screen 1945 Fall Risk Screening 2011 RSV Immunization ( o r 60+ Years) (1 - 1-dose 75+ series) 2021 COVID-19 Vaccine (2023- season) 2023 Insurance [facility] MEDICARE Care Teams Cd Mixer Helper Relationship Specialty Start Date End Date Unknown, Provider, PCP - General 12/19/12
--- OUTSIDE RECORDS SUMMARY | 2024-04-09 13:57 | XMS_ITS | Encounter Summary ---
Author Organization [facility] [address] Care Team Providers Care Process Coach Name Role Phone Moses Foster MD Primary Care Provider [phone] Encounter Details Date Type Department Care Team (Late st Contact Info) Description 02/27/2021 1:00 PM EST Office Visit Radiation Oncology at [address] [phone] Gina Luna APRN [facility] [place] [address] Prostate cancer Social History Tobacco Use Types [...] Sign Reading Time Taken Comments Blood Pressure 178/87 02/27/2021 12:58 PM EST Pulse 70 02/27/2021 12:58 PM EST Temperature 36.4 ??C (97.6 ??F) 02/27/2021 12:[address] Respiratory Rate 20 02/27/2021 12:58 PM EST Oxygen Saturation 100% 02/27/2021 12:58 PM EST Inhaled Oxygen Concentration - - Weight 68.6 kg (151 lb 3.2 oz) 02/27/2021 12:58 PM EST Height 167.6 cm (5' 5.98) 02/27/2021 12:[address] Body Mass Index 24.42 02/27/2021 12:58 PM EST documented in this encounter Progress Notes * Gina Luna, POLITICAL GEOGRAPHER - 02/27/2021 1:00 PM ESTSummary: 76 year old M dx 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 completed EBRT on 03/19/2013 Images from the original note were not included. [facility] [place] [address] Phone: RADIATION ONCOLOGY FOLLOW UP NOTE Date of visit: 02/26/2021 Patient Allen Cerda 1945 PCP: Mosse Foster MD Urologist: Radiation oncologist: Dr. Abraham In [place] at first and then Dr Smith for [facility]. Chief Complaint: follow up/labs for prostate cancer [...] Prostatic core needle biopsy, left base: Adenocarcinoma, [place] grade 4 + 3, involving approximately 50% of the single biopsy core. H - Prostatic core needle biopsy, left mid:1. Adenocarcinoma, [place] grade 4 + 3, involvingapproximately 60% of [...] mid:adenocarcinoma, [place] grade 4 + 4, involving [id number]% of the single biopsy core. L - Prostatic core needle biopsy, left lateral apex:Adenocarcinoma, [place] grade 3 + 3, involving less than 5%of the single biopsy core. M - Prostatic core needle biopsy, left nodule x 2:Adenocarcinoma, [place] grade 4 + 4, involving [id number]% of the multiple needle biopsy core fragments. [...] metastases. IPSS: 1 TRUS:46cc ALVINA: 25 TREATMENT: HATCHERY MANAGER ADT FOR 28 MONTHS PLANNED. Radiotherapy: Treatment: Definitive radiation with Neoadjuvant/Concurrent/Adjuvant Androgen Deprivation. PROSTATE Plan Start Tx Last Tx Elapsed Days Fractions Dose (cGy) PTV1 Pelvis 01/14/2013 02/17/2013 34 25 / 25 @ 180.0 cGy 4500 / 4500 Energy Mode: 10X ? Treatment Type: Rapid Arc ? PTV3 Prostate 03/15/2013 03/19/2013 @ 180.0 cGy 900 / 900 Energy [...] Biopsy 10/05/2012 Volume in cc 46 cc [place] grade/score a+b=c 4+5=9 Total Cores 13 biopsy [...] Frax xcore of 2.3% ? Interim HPI: See ROS Still has hot and cold flushes occassionally. No other sx of LUTS, no blood in urine no blood in stool Medications 02/25/20 1217 Medication Sig Taking? GLUC HCL/CSANA/GLY-AM-GLY,MX/C ([id number] GLYCN-C ORAL) Take by mouth daily. calcium-vitamin [...] History Tobacco Use ??? Smoking status: Former Smoker Types: Pipe, Cigars Quit date: 06/24/1986 Years since quittin.7 ??? Smokeless tobacco: Former User Types: Chew ? ? Tobacco comment: quit smoking & chewing 20 yrs ago Substance Use Topics ??? Alcohol use: Yes Comment: ocassional beer, usually in the summer ??? 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 Exercise:walks in the [place] Smoking:former pipe and cigar smoker quit in [...] chair Physical Examination: Body mass index is 24.42 kg/m??. BP 178/87 (Patient Position: Sitting) Pulse 70 Temp 36.4 ??C (97.6 ??F) (Temporal) Resp 20 Ht 167.6 cm (5' 5.98) Wt 68.6 kg (151 lb 3.2 oz) Constitutional: seen in clinic no distress HENT: normocephalic, anicteric, neck supple, no adenopathy Cardiovascular: Rate and Rhythm: Normal rate and regular rhythm. Heart sounds: Normal heart sounds. No murmur Pulmonary: Effort: Pulmonary effort is normal. Breath sounds: Normal breath sounds. No wheezing or rales. Abdomen: Soft, flat, no HSM, no masses, non-tender, active bowel sounds Genitourinary: Rectum: deferred at this visit No inguinal adenopathy Musculoskeletal: Normal range of motion. General: No swelling or deformity. No spinal percussion tenderness No CVA tenderness Comments: Ambulates without assistance Skin: General: Skin is warm and dry. Neurological: General: No focal deficit present. Mental Status: alert and oriented to person, place, and time. Gait: Gait normal. Psychiatric: Mood and Affect: Mood normal. Behavior: Behavior normal. Thought Content: Thought content normal. Judgment: Judgment normal. New Labs Reviewed this visit: Date PSA Test Notes 02/27/21 0.13 Date PSA Testosterone (range 240 [...] 09/28/2012 57.2 ?? 08/27/2012 93.30 ?? Assessment: 76 y.o. presenting for follow up/ lab for prostate cancer Allen Cerda is a very pleasant 76 y.o. year-old male with high risk prostate cancer, T2a, [place] 4+5=9, PSA 57.2 s/p definitive radiation with neoadjuvant/concurrent androgen deprivation (combined androgen blockade) who completed androgen deprivation (Lupron) with his last injection on 11/02/2014 c ompleting 28 months of therapy. Mr Cerda completed radiation in March 2013. PSA is detectable but remains very low at 0.13. Testosterone now WNL. We reviewed his lab results. He has no side effects from radiation. I reviewed the need for continued PSA monitoring. 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 ? Plan: 1. Per NCCC guidelinew we [...] Evaluation: Body weight/nutrition, no changes Exercise:walks in [employer] Bone health:bones are good but has arthritis, osteoarthritis. Smoking:cigars, pipe, chew, quit in 80s. Alcohol: q 2 weeks pizza and beer Annual exam with PCP:Once per year, annual check up in October. Up to date on vaccinations:Moderna vax x 2 and booster January 29 Colorectal screening:colonoscopy done 12/29/2012 and four polyps were removed. Had one since at [facility]. Lung cancer screening: # resources provided:none provided # referrals done: None at this time # follow up: Per NCCN guidelines, PSA and history/physical every 6-12 months X 5 years, then annually. Annual CANDIS (unless PSA undetectable or prostatectomy). PSA may be checked more frequently depending on risk level or other patient specific factors. Next visit:one year Labs: PSA, testosterone, CBC, CMP Allen Kitchenuld had the opportunity to ask questions and I answered them to the best of my knowledge. Allen Cerda agreed to contact radiation oncology in between visits if he has any questions/concerns or new symptoms in regards to the radiation therapy/prostate cancer Gina Luna MSN, POLITICAL GEOGRAPHER, ELECTRO OPTICAL ENGINEER-C Nurse Practitioner Radiation Oncology documented in this encounter Plan of Treatment Upcoming Encounters Date Type Department Care Team (Late st Contact Info) Description 04/15/2024 1:00 PM EST Office Visit Radiation Oncology at [address] [phone] Brenda Calvin PA [facility] DR [place] [address] documented as of this encounter Visit Diagnoses Diagnosis Prostate cancer Malignant neoplasm of prostate documented in this encounter Care Teams Process Coach Relationship Specialty Start Date End Date Moses Foster MD PCP - General 08/20/16 documented as of this encounter
--- OUTSIDE RECORDS SUMMARY | 2024-04-09 13:57 | XMS_ITS | Encounter Summary ---
Author Organization [facility] Address [facility] [place] [address] Care Team Providers Care Continuous Wave Operator Name Role Phone Moses Foster MD Primary Care Provider [phone] Encounter Details Date Type Department Care Team (Latest Contact Info) Description 03/26/2022 Travel Social History Tobacco Use Types Packs/Day [...] PM EST Office Visit Radiation Oncology at [address] [phone] Brenda Calvin PA [facility] DR HEMATOLOGY [place] [address] documented as of this encounter Visit Diagnoses Not on filedocumented in this encounter Care Teams Continuous Wave Operator Relationship Specialty Start Date End Date Moses Foster MD PCP - General 08/20/16 documented as of this encounter
--- OUTSIDE RECORDS SUMMARY | 2024-04-09 13:57 | XMS_ITS | Encounter Summary ---
Author Organization [facility] [place] [address] Care Team Providers Care Linen Aide Name Role Phone Moses Foster MD Primary Care Provider [phone] Encounter Details Date Type Department Care Team (Late st Contact Info) Description 02/14/2020 Orders Only Hematology/Oncology at [address] [phone] Yolande Rosa APRN Prostate cancer [...] PM EST Office Visit Radiation Oncology at [address] [phone] Brenda Calvin PA [facility] DR HEMATOLOGY [place] [address] documented as of this encounter Visit Diagnoses Diagnosis Prostate cancer Malignant neoplasm of prostate documented in this encounter Care Teams Linen Aide Relationship Specialty Start Date End Date Msoes Foster MD PCP - General 08/20/16 documented as of this encounter
--- OUTSIDE RECORDS SUMMARY | 2024-04-09 13:57 | XMS_ITS | Encounter Summary ---
Author Organization [facility] [place] [address] Care Team Providers Care Jewelry Engraver Name Role Phone Moses Foster MD Primary Care Provider [phone] Reason for Visit * Reason Comments Radiation Follow-up prostate cancer Encounter Details Date Type Department Care Team (Late st Contact Info) Description 02/04/2019 9:45 AM EDT Office Visit Radiation Oncology at [address] [phone] Joana Layton, GENERAL OPHTHALMOLOGIST Malignant neoplasm of prostate Social History Tobacco [...] Sign Reading Time Taken Comments Blood Pressure 146/77 02/04/2019 9:54 AM EDT Pulse 65 02/04/2019 9:54 AM EDT Temperature 36.6 ??C (97.9 ??F) 02/04/2019 9:54 AM ED T Respiratory Rate 18 02/04/2019 9:54 AM EDT Oxygen Saturation 100% 02/04/2019 9:54 AM EDT Inhaled Oxygen Concentration - - Weight 69 kg (152 lb 3.2 oz) 02/04/2019 9:54 AM EDT Height 167.6 cm (5' 5.98) 02/04/2019 9:54 AM ED T copied Body Mass Index 24.58 02/04/2019 9:54 AM EDT documented in this encounter Patient Instructions * Patient Instructions* Joana Layton APRN - 02/04/2019 9:45 AM EDT Date PSA Testosterone (range 240 to 950) 01/28/2019 0.1 319 12/11/2017 0.1 244 06/05/2017 0.1 225 12/04/2016 < 0.1 215 06/06/16 <0.1 150 12/06/15 <0.1 99 06/06/2015 < 0.1 62 02/06/2015 < 0.1 27 11/02/2014 < 0.1 < 20 07/25/2014 < 0.1 < 20 04/13/2014 < 0.1 15 01/11/2014 < 0.1 < 20 09/30/2013 <0.1 <20 06/24/2013 <0.03 ?? 09/28/2012 57.2 ?? 08/27/2012 93.30 ?? documented in this encounter Progress Notes * Joana Layton APRN - 02/04/2019 9:45 AM EDT Images from the original note were not included. Identification: Allen Cerda is a 74 y.o. year-old male with high risk prostate cancer, T2a, [place] 4+5=9, PSA 57.2. He was treated with [...] Prostatic core needle biopsy, left mid:1. Adenocarcinoma, [place] grade 4 + 3, involvingapproximately 60% of the fragmented needle biopsy core.2. Perineural invasion is present. I - Prostatic core needle biopsy, left apex:1. Adenocarcinoma, Donny grade 3 + 4, involvingapproximately 10% of the single biopsy core.2. Perineural invasion is present. J - Prostatic core needle biopsy, left lateral base:1. Adenocarcinoma, [place] grade 4 + 5, involvingapproximately 70% of the single biopsy core (seeComment).2. Focus of intraluminal cancer, suspicious for lymphatic invasion. K - Prostatic core needle biopsy, left lateral mid:adenocarcinoma, [place] grade 4 + 4, involving [id number]% of the single biopsy core. L - Prostatic core needle biopsy, left lateral apex:Adenocarcinoma, Donny grade 3 + 3, involving less than 5%of the single biopsy core. M - Prostatic core needle biopsy, left nodule x 2:Adenocarcinoma, [place] grade 4 + 4, involving [id number]% of the multiple needle biopsy core fragments. [...] metastases. IPSS: 1 TRUS:46cc ALVINA: 25 TREATMENT: COMMERCIAL PARTS PROFESSIONAL ADT FOR 28 MONTHS PLANNED. Radiotherapy: Treatment: [...] Biopsy 10/05/2012 Volume in cc 46 cc [place] grade/score a+b=c 4+5=9 Total Cores 13 biopsy [...] history on file. No Known Allergies Medications 02/04/19 0957 Medication Sig Taking? GLUC HCL/CSANA/GLY-AM-GLY,MX/C ([id number] GLYCN-C ORAL) Take by mouth daily. Yes calcium-vitamin D 500 mg(1,250mg) -200 unit Tablet Take 1 tablet by mouth 2 times daily (with meals). Reported on 06/13/2016 Yes fish oil-omega-3 fatty acids 1,000 mg Capsule Take 2 g by mouth daily. Yes ibuprofen (ADVIL;MOTRIN) 200 mg tablet Take 400 mg by mouth every 6 hours as needed. Indications: Pain, chronic back pain Yes Social History Socioeconomic History ??? Marital status: Spouse name: Not on file ??? Number of children: Not on file ??? Years of education: Not on file ??? Highest education level: Not on file Occupational History ??? Not on file Social Needs ??? Financial resource strain: Not on file ??? Food insecurity: Worry: Not on file Inability: Not on file ??? Transportation needs: Medical: Not on file Non-medical: Not on file Tobacco Use ??? Smoking status: Former Smoker Types: Pipe, Cigars Last attempt to quit: 06/24/1986 Years since quittin.6 ??? Smokeless tobacco: Former User Types: Chew ? ? Tobacco comment: quit smoking & chewing 20 yrs ago Substance and Sexual Activity ??? Alcohol use: Yes Comment: ocassional beer, usually in the summer ??? Drug use: Not on file ??? Sexual activity: Not on file Lifestyle ??? Physical activity: Days per week: Not on file Minutes per session: Not on file ??? Stress: Not on file Relationships ??? Social connections: Talks on phone: Not on file Gets together: Not on file Attends methodist service: Not on file Active member of club or organization: Not on file Attends meetings of clubs or organizations: Not on file Relationship status: Not on file ??? Intimate partner violence: Fear of current or ex partner: Not [...] property and tolerating this. He has been logging and exercising regularly. He has no pain. He [...] change. 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 Negative for sleep disturbance. KPS: 100 Vitals Office Visit from 02/04/2019 in Radiation Oncology at [facility] Weight 69 kg (152 lb 3.2 oz) Height 167.6 cm (5' 5.98) [copied] BSA (Calculated - sq m) 1.79 sq meters BMI (Calculated) 24.57 Temp 36.6 ??C (97.9 ??F) Temp src Oral Heart Rate 65 Heart Rate Source Right, Monitor Resp 18 BP 146/77 BP Location Right arm Patient Position Sitting SpO2 100 % Karnofsky Score 100 Motor Neuropathy N/A Sensory Neuropathy Grade 1 [chronic back trouble causes tingling int. L instep] Physical Exam Constitutional: He is oriented to [...] no guarding and no CVA tenderness. Genitourinary: Rectum normal and prostate normal. Rectal exam shows guaiac negative stool. Genitourinary Comments: Rectal-good sphincter tone. Prostate is flat, smooth, no induration, no tenderness. Guaiac negative Musculoskeletal: Normal range of motion. He exhibits no edema, tenderness or deformity. Lymphadenopathy: Head (right side): No submental, no [...] thought content normal. Vitals reviewed. Date PSA Testosterone (range 240 to 950) 01/28/2019 0.1 319 12/11/2017 0.1 244 06/05/2017 [...] Assessment: Allen Cerda is a very pleasant 74 y.o. year-old male with high risk prostate cancer, T2a, [place] 4+5=9, PSA 57.2 s/p definitive radiation with neoadjuvant/concurrent androgen deprivation (combined androgen blockade) who completed androgen deprivation (Lupron) with his last injection on 11/02/2014 completing 28 months of therapy. Mr Cerda completed radiation in March 2013. PSA is detectable but remains very low at 0.1. Testosterone above castrate level and which is slowly rising and is normal at 319 We reviewed his lab results. He has no side effects from radiation. I reviewed the need for continued PSA monitoring. 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 His Frax score was 2.3%. He will continue with supplemental calcium and vitamin D and he continues with weight bearing exercise. I reviewed potential late effects from radiation and side effects from ADT. All questions were addressed. Plan: 1. He is now six years from completion of treatment and per [...] EST Office Visit Radiation Oncology at [address] [phone] Brenda Calvin PA [facility] HEMATOLOGY [place] [address] documented as of this encounter Visit Diagnoses Diagnosis Malignant neoplasm of prostate documented in this encounter Care Teams Jewelry Engraver Relationship Specialty Start Date End Date Moses Foster MD PCP - General 08/20/16 documented as of this encounter
--- OUTSIDE RECORDS SUMMARY | 2024-04-09 13:57 | XMS_ITS | Encounter Summary ---
Author Organization [facility] [place] [address] Care Team Providers Care Companion Name Role Phone Howard Rayo MD Primary Care Provider [phone] Encounter Details Date Type Department Care Team (Late st Contact Info) Description 12/12/2015 1:00 PM EDT Office Visit Hematology/Oncology at [address] [phone] Yolande Rosa, JUNIOR MECHANICAL ENGINEER Prostate cancer Social History Tobacco Use Types [...] Sign Reading Time Taken Comments Blood Pressure 138/74 12/12/2015 1:07 PM EDT Pulse 71 12/12/2015 1:07 PM EDT Temperature 36.8 ??C (98.2 ??F) 12/12/2015 1 :07 PM EDT Respiratory Rate 18 12/12/2015 1:07 PM EDT Oxygen Saturation 97% 12/12/2015 1:0 7 PM EDT Inhaled Oxygen Concentration - - Weight 71.8 kg (158 lb 3.2 oz) 12/12/2015 1:07 PM EDT with shoes on Height - - Body Mass Index 24.78 10/29/2012 10:25 AM EDT documented in this encounter Patient Instructions * Patient Instructions* Yolande Rosa APRN - 12/12/2015 1:00 PM EDT He will return in 6 months with psa and testosterone. documented in this encounter Progress Notes * Yolande Rosa APRN - 12/12/2015 1:00 PM EDT Identification: Allen Cerda is a 70 y.o. year-old male with high risk prostate cancer, T2a, [place] 4+5=9, PSA 57.2. He was treated with [...] core needle biopsy, left lateral base:1. Adenocarcinoma, [place] grade 4 + 5, involvingapproximately 70% of the single biopsy core (seeComment).2. Focus of intraluminal cancer, suspicious for lymphatic invasion. K - Prostatic core needle biopsy, left lateral mid:adenocarcinoma, Donny grade 4 + 4, involving ujvikkezoopoo33% of the single biopsy core. L - Prostatic core needle biopsy, left lateral apex:Adenocarcinoma, Donny grade 3 + 3, involving less than 5%of the single biopsy core. M - Prostatic core needle biopsy, left nodule x 2:Adenocarcinoma, Donny grade 4 + 4, involving [id number]% of the multiple needle biopsy core fragments. [...] metastases. IPSS: 1 TRUS:46cc ALVINA: 25 TREATMENT: CIRCUS TRAIN SUPERVISOR ADT FOR 28 MONTHS PLANNED. Radiotherapy: Treatment: [...] Medication Sig Dispense Refill ??? GLUC HCL/CSANA/GLY-AM-GLY,MX/C ([id number] GLYCN-C ORAL) Take by mouth daily. ??? [...] Former User Types: Chew Comment: quit smoking & chewing 20 yrs ago ??? Alcohol [...] hematu andrés and incontinence His IPSS is lower and Remains stable at 2. He indicates that he is delighted with his urinary function. He is thinking about hunting this year. International Prostate Symptom Score Total Score__2___ 0 [...] change. 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 Hot flashes--do not interfere with sleep--fatigue is improving No breast tenderness HENT: Negative. Eyes: Negative. [...] Temp: [36.8 ??C (98.2 ??F)] Heart Rate: [71] Resp: [18] BP: (138)/(74) SpO2: [97 %] Heart Rate from SPO2: -- Physical [...] content normal. Vitals reviewed. Date PSA testosterone 12/06/15 <0.1 99 06/06/2015 < 0.1 62 02/06/2015 < 0.1 27 11/02/2014 < 0.1 < 20 07/25/2014 < 0.1 < 20 04/13/2014 < 0.1 15 01/11/2014 < 0.1 < 20 09/30/2013 <0.1 <20 06/24/2013 <0.03 09/28/2012 57.2 08/27/2012 93.30 Assessment: Allen Cerda is a very pleasant 70 y.o.. year-old male with high risk prostate cancer, T2a, [place] 4+5=9, PSA 57.2 s/p definitive radiation with neoadjuvant/concurrent androgen deprivation (combined androgen blockade) who completed androgen deprivation (Lupron) With his last injection on 11/02/2014 completing 28 months of therapy. Mr Cerda completed radiation in March 2013. PSA is undetectable. Testosterone above castrate level but remains low at 99. We reviewed his lab results. He has no/minimal residual side effects from radiation. He has mild fatigue and hot flashes from ADT but the hot flashes are diminishing. I reviewed the need for continued PSA [...] PM EST Office Visit Radiation Oncology at [address] [phone] Brenda Calvin PA [facility] HEMATOLOGY [place] [address] documented as of this encounter Procedures Procedure Name Priority Date/Time Associated Diagnosis Comments LAB SCAN 06/06/2016 12:00 AM EST documented in this encounter Results * SCAN DOC: LAB (06/06/2016 12:00 AM EST) Narrative 06/06/2016 12:00 AM EST Ordered by an unspecified provider. Scanning Provider MEDIA MGR SCAN EXT O RDR/RSLT documented in this encounter Visit Diagnoses Diagnosis Prostate cancer Malignant neoplasm of prostate documented in this encounter Care Teams Companion Relationship Specialty Start Date End Date Howard Rayo MD [facility] [address] [place] [address] PCP - General 08/28/12 08/19/16 documented as of this encounter
--- OUTSIDE RECORDS SUMMARY | 2024-04-09 13:57 | XMS_ITS | Encounter Summary ---
Author Organization [facility] [place] [address] Care Team Providers Care Scouring Train Operator Chief Name Role Phone Moses Foster MD Primary Care Provider [phone] Reason for Visit * Reason Comments Follow-up prostate cancer Encounter Details Date Type Department Care Team (Late st Contact Info) Description 06/12/2017 2:30 PM EST Office Visit Radiation Oncology at [address] [phone] Joana Layton, CODER Malignant neoplasm of prostate Social History Tobacco [...] Sign Reading Time Taken Comments Blood Pressure 146/81 06/12/2017 2:28 PM EST Pulse 59 06/12/2017 2:28 PM EST Temperature 36.5 ??C (97.7 ??F) 06/12/2017 2:28 PM ES T Respiratory Rate 18 06/12/2017 2:28 PM EST Oxygen Saturation 98% 06/12/2017 2:28 PM EST Inhaled Oxygen Concentration - - Weight 72.1 kg (159 lb) 06/12/2017 2:28 PM EST Height - - Body Mass Index 24.9 10/29/2012 10:25 AM EDT documented in this encounter Patient Instructions * Patient Instructions* Joana Layton APRN - 06/12/2017 2:30 PM EST Date PSA Testosterone (range 240 to 950) 06/05/2017 0.1 225 12/04/2016 < 0.1 215 06/06/16 <0.1 150 12/06/15 <0.1 99 06/06/2015 < 0.1 62 02/06/2015 < 0.1 27 11/02/2014 < 0.1 < 20 07/25/2014 < 0.1 < 20 04/13/2014 < 0.1 15 01/11/2014 < 0.1 < 20 09/30/2013 <0.1 <20 06/24/2013 <0.03 ?? 09/28/2012 57.2 ?? 08/27/2012 93.30 ?? Vitals Office Visit from 06/12/2017 in Radiation Oncology at [facility] Weight 72.1 kg (159 lb) Temp 36.5 ??C (97.7 ??F) Temp src Oral Heart Rate 59 Resp 18 BP 146/81 BP Location Left arm Patient Position Sitting SpO2 98 % documented in this encounter Progress Notes * Joana Layton APRN - 06/12/2017 2:30 PM EST Images from the original note were not included. Identification: Allen Cerda is a 72 y.o. year-old male with high risk prostate cancer, T2a, [place] 4+5=9, PSA 57.2. He was treated with [...] Prostatic core needle biopsy, left mid:1. Adenocarcinoma, [place] grade 4 + 3, involvingapproximately 60% of the fragmented needle biopsy core.2. Perineural invasion is present. I - Prostatic core needle biopsy, left apex:1. Adenocarcinoma, [place] grade 3 + 4, involvingapproximately 10% of the single biopsy core.2. Perineural invasion is present. J - Prostatic core needle biopsy, left lateral base:1. Adenocarcinoma, Donny grade 4 + 5, involvingapproximately 70% of the single biopsy core (seeComment).2. Focus of intraluminal cancer, suspicious for lymphatic invasion. K - Prostatic core needle biopsy, left lateral mid:adenocarcinoma, Donny grade 4 + 4, involving ytyumgiymfove83% of the single biopsy core. L - Prostatic core needle biopsy, left lateral apex:Adenocarcinoma, [place] grade 3 + 3, involving less than 5%of the single biopsy core. M - Prostatic core needle biopsy, left nodule x 2:Adenocarcinoma, Donny grade 4 + 4, involving uvfolzedsawpq57% of the multiple needle biopsy core fragments. [...] metastases. IPSS: 1 TRUS:46cc ALVINA: 25 TREATMENT: SUPERINTENDENT ADT FOR 28 MONTHS PLANNED. Radiotherapy: Treatment: [...] Biopsy 10/05/2012 Volume in cc 46 cc [place] grade/score a+b=c 4+5=9 Total Cores 13 biopsy [...] history on file. No Known Allergies Medications 06/12/17 1450 Medication Sig Taking? GLUC HCL/CSANA/GLY-AM-GLY,MX/C ([id number] GLYCN-C ORAL) Take by mouth daily. Yes [...] Pain, chronic back pain Yes Social History Social History ??? Marital status: [...] he was last seen in clinic. He reports resolution of previous symptoms related to androgen deprivation. He remains active working around his property [...] dysuria, hematuria and incontinence His IPSS is stable at2 He indicates that he is delighted with [...] change. 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 Patient had large lipoma on his back surgically removed in November 2014 which is starting to grow again Neurological: Negative. Negative for weakness. Hematological: Negative. Psychiatric/Behavioral: Negative. Negative for sleep disturbance. KPS: 100 Vitals Office Visit from 06/12/2017 in Radiation Oncology at [facility] Weight 72.1 kg (159 lb) Temp 36.5 ??C (97.7 ??F) Temp src Oral Heart Rate 59 Resp 18 BP 146/81 BP Location Left arm Patient Position Sitting SpO2 98 % Physical Exam Constitutional: He is oriented [...] no guarding and no CVA tenderness. Genitourinary: Genitourinary Comments: Rectal-deferred Musculoskeletal: Normal range of motion. He [...] is not diaphoretic. No erythema. No pallor. Lipoma to the right of his low back about the size of a large grape Psychiatric: He has a normal mood and affect. His behavior is normal. Judgment and thought content normal. Vitals reviewed. Date PSA Testosterone (range 240 to 950) 06/05/2017 0.1 225 12/04/2016 < 0.1 215 06/06/16 <0.1 150 12/06/15 <0.1 99 06/06/2015 < 0.1 62 02/06/2015 < 0.1 27 11/02/2014 < 0.1 < 20 07/25/2014 < 0.1 < 20 04/13/2014 < 0.1 15 01/11/2014 < 0.1 < 20 09/30/2013 <0.1 <20 06/24/2013 <0.03 ?? 09/28/2012 57.2 ?? 08/27/2012 93.30 ?? Assessment: Allen Cerda is a very pleasant 72 y.o. year-old male with high risk prostate cancer, T2a, [place] 4+5=9, PSA 57.2 s/p definitive radiation with neoadjuvant/concurrent androgen deprivation (combined androgen blockade) who completed androgen deprivation (Lupron) with his last injection on 11/02/2014 completing 28 months of therapy. Mr Cerda completed radiation in March 2013. PSA is detectable but remains very low at 0.1. Testosterone above castrate level and which is slowly rising and is now 225 We reviewed his lab results. He has no side effects from radiation. I reviewed the need for continued PSA monitoring. Due to intermission coordinator ADT he had a DEXA scan done [...] PM EST Office Visit Radiation Oncology at [address] [phone] Brenda Calvin PA [facility] [place] [address] documented as of this encounter Visit Diagnoses Diagnosis Malignant neoplasm of prostate documented in this encounter Care Teams Scouring Train Operator Chief Relationship Specialty Start Date End Date Moses Foster MD PCP - General 08/20/16 documented as of this encounter
--- OUTSIDE RECORDS SUMMARY | 2024-04-09 13:57 | XMS_ITS | Encounter Summary ---
Author Organization [facility] [place] [address] Care Team Providers Care Sales Solutions Associate Name Role Phone Moses Foster MD Primary Care Provider [phone] Encounter Details Date Type Department Care Team (Late Contact Info) Description 03/17/2023 Orders Only Radiation Oncology at [address] [phone] Kimberley Foster APRN [facility] [place] [address] Prostate cancer Social History Tobacco Use Types [...] EST Office Visit Radiation Oncology at [address] [phone] Brenda Calvin PA [facility] HEMATOLOGY [place] [address] documented as of this encounter Visit Diagnoses Diagnosis Prostate cancer Malignant neoplasm of prostate documented in this encounter Care Teams Sales Solutions Associate Relationship Specialty Start Date End Date Moses Foster MD PCP - General 08/20/16 documented as of this encounter
--- OUTSIDE RECORDS SUMMARY | 2024-04-09 13:57 | XMS_ITS | Encounter Summary ---
Author Organization [facility] [place] [address] Care Team Providers Care Software Quality Analyst Name Role Phone Howard Rayo MD Primary Care Provider [phone] Reason for Visit * Reason Comments Radiation Follow-up prostate cancer Encounter Details Date Type Department Care Team (Late st Contact Info) Description 02/09/2015 1:00 PM EST Office Visit Radiation Oncology at [address] [phone] Joana Layton, PROTECTION CHIEF [employer]ANT Malignant neoplasm of prostate; Osteopenia Social History Tobacco Use Types Packs/Day Years [...] Sign Reading Time Taken Comments Blood Pressure 146/86 02/09/2015 1:00 PM EST Pulse 62 02/09/2015 1:00 PM EST Temperature 36.7 ??C (98.1 ??F) 02/09/2015 1:00 PM ES T Respiratory Rate 16 02/09/2015 1:00 PM EST Oxygen Saturation 99% 02/09/2015 1:00 PM EST Inhaled Oxygen Concentration - - Weight 72.1 kg (159 lb) 02/09/2015 1:00 PM EST Height - - Body Mass Index 24.9 10/29/2012 10:25 AM EDT documented in this encounter Patient Instructions * Patient Instructions* Joana Layton APRN - 02/09/2015 12:59 PM EST Date PSA testosterone 02/06/2015 < 1 27 11/02/2014 < 0.1 < 20 07/25/2014 < 0.1 < 20 04/13/2014 < 0.1 15 01/11/2014 < 0.1 < 20 09/30/2013 <0.1 <20 06/24/2013 <0.03 09/28/2012 57.2 08/27/2012 93.30 Vitals Office Visit from 02/09/[address] [facility] Radiation Oncology Weight - Scale 72.122 kg (159 lb) Temp 36.7 ??C (98.1 ??F) Temp Source Oral Heart Rate 62 Heart Rate Source Right, NIBP Resp 16 BP 146/86 mmHg BP Location Right arm Patient Position Sitting SpO2 99 % documented in this encounter Progress Notes * Joana Layton APRN - 02/09/2015 12:52 PM EST Identification: Allen Cerda is a 70 y.o. 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 He was treated with radiation therapy 79.2 Gy and completed treatment on 03/19/2013. He is in clinic for scheduled follow up. He had his last injection of Lupron on 11/02/2014 completing 28 months of androgen deprivation. He is in clinic for scheduled follow up. [...] Prostatic core needle biopsy, left base: Adenocarcinoma, Lester grade 4 + 3, involving approximately 50% [...] core needle biopsy, left lateral base:1. Adenocarcinoma, Lester grade 4 + 5, involvingapproximately 70% of the single biopsy core (seeComment).2. Focus of intraluminal cancer, suspicious for lymphatic invasion. K - Prostatic core needle biopsy, left lateral mid:adenocarcinoma, Lester grade 4 + 4, involving [id number]% of the single biopsy core. L - Prostatic core needle biopsy, left lateral apex:Adenocarcinoma, Lester grade 3 + 3, involving less than 5%of the single biopsy core. M - Prostatic core needle biopsy, left nodule x 2:Adenocarcinoma, Donny grade 4 + 4, involving [id number]% of the multiple needle biopsy core fragments. [...] IPSS: 1 TRUS:46cc ALVINA: 25 TREATMENT: SENIOR LIVING ADT FOR 28 MONTHS PLANNED. Radiotherapy: Treatment: Definitive radiation with Neoadjuvant/Concurrent/Adjuvant Androgen Deprivation. PROSTATE Plan Start Tx Last Tx Elapsed Days Fractions Dose (cGy) PTV1 Pelvis 01/14/2013 02/17/2013 34 25 / 25 @ 180.0 cGy 4500 / 4500 Energy Mode: 10X Treatment Type: Rapid Arc PTV3 Prostate 03/15/2013 03/19/2013 4 5 @ 180.0 cGy 900 / 900 [...] Biopsy 10/05/2012 Volume in cc 46 cc Lester grade/score a+b=c 4+5=9 Total Cores 13 biopsy [...] ADT Duration in Months 28 months completed Patient Active Problem List Diagnosis Code ??? PSA elevation R97.2 ??? Prostate nodule N40.2 ??? Prostate cancer C61 ---arthritis No past surgical history on file. No Known Allergies Current Outpatient Prescriptions on File Prior to Visit Medication Sig Dispense Refill ??? LEUPROLIDE ACETATE (LUPRON DEPOT, 3 MONTH, IM) Inject into the muscle. ??? ibuprofen (ADVIL;MOTRIN) 200 mg tablet Take [...] Mr Cerda reports that he is feeling well. He has ongoing non- distressing hot flashes. He is active working around his property and tolerating this. He finds that he fatigues faster so then stops. He has no pain. He has no bowel issues generally twice a day --he reports no constipation, no diarrhea, no hematochezia and no melena.--Mr Cerda had a colonoscopy done 12/29/2012 and four polyps were removed. He has no bladder issues. He denies dysuria, hematuria and incontinence His IPSS is lower and Remains stable at 2. He indicates that he is delighted with his urinary function. International Prostate Symptom Score Total Score__3 to _4_ 0 1 2 3 4 5 Not [...] sexually active--ALVINA=0 Review of Systems Constitutional: Negative. 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 Hot flashes--do not interfere with sleep--fatigue is decreasing No breast tenderness Able to do some logging --started January 05 HENT: Negative. Eyes: Negative. Respiratory: Negative. Negative for cough, chest tightness, shortness of breath and wheezing. Cardiovascular: Negative. Negative for chest pain and leg swelling. Gastrointestinal: Negative. Negative for abdominal pain, diarrhea, constipation, blood in stool, abdominal distention and rectal pain. Slightly more gas Genitourinary: Negative. Negative for dysuria, frequency, hematuria, decreased urine volume, enuresis and difficulty urinating. See interim history Musculoskeletal: Negative. Negative for arthralgias. Back is feeling better overall Skin: Patient had large lipoma on his back surgically removed in November 2014 Neurological: Negative. Hematological: Negative. Psychiatric/Behavioral: Negative. KPS: 100 Vitals Office Visit from 02/09/[address] [facility] Radiation Oncology Weight - Scale 72.122 kg [...] atraumatic. Eyes: Conjunctivae and EOM are normal. No scleral icterus. Neck: Neck supple. Cardiovascular: [...] There is no tenderness. There is no rebound and no CVA tenderness. Genitourinary: Rectal deferred Musculoskeletal: Normal range of motion. He exhibits [...] is not diaphoretic. No erythema. No pallor. Surgical scar lower back where lipoma excised is well healed Psychiatric: He has a normal mood and [...] CMP reviewed --no concerns. Date PSA testosterone 02/06/2015 < 1 27 11/02/2014 < 0.1 < 20 07/25/2014 [...] in March 2013. PSA is undetectable. Testosterone castrate level We reviewed his lab results. He has no/minimal residual side effects from radiation. He has mild fatigue and hot flashes from ADT. I reviewed the need for continued PSA monitoring. Due to [place] [facility] ADT we discussed getting a DEXA scan to assess bone health. I reviewed potential late effects from radiation and side effects from ADT. He was again recommended to continue Vitamin D and calcium for bone health All questions were addressed. Plan: 1. DEXA scan to be done to assess for osteopenia/osteoporosis due to [place] [facility] ADT 2. F/U in four months with PSA, testosterone 3. Continue calcium and vitamin D Patient is to call if he has any questions or concerns. documented in this encounter Plan of Treatment Upcoming Encounters Date Type Department Care Team (Late st Contact Info) Description 04/15/2024 1:00 PM EST Office Visit Radiation Oncology at [address] [address] Brenda Calvin PA [facility] DR HEMATOLOGY [place] [address] documented as of this encounter Procedures Procedure Name Priority Date/Time Associated Diagnosis Comments DIAGNOSTIC RADIOLOGY SCAN 06/07/2015 12:00 AM EST documented in this encounter Results * SCAN DOC: DIAGNOSTIC RADIOLOGY (06/07/2015 12:00 AM EST) Anatomical Region Laterality Modality Other Scanning Provider MEDIA MGR SCAN EXT O RDR/RSLT documented in this encounter Visit Diagnoses Diagnosis Malignant neoplasm of prostate Osteopenia Disorder of bone and cartilage, unspecified documented in this encounter Care Teams Software Quality Analyst Relationship Specialty Start Date End Date Howard Rayo MD [facility] [address] [place] [address] PCP - General 08/28/12 08/19/16 documented as of this encounter
--- OUTSIDE RECORDS SUMMARY | 2024-04-09 13:57 | XMS_ITS | Encounter Summary ---
Author Organization [facility] Address [address] [place] [address] Care Team Providers Care Music Adapter Name Role Phone Unknown, Provider Primary Care Provider Unava ilable Encounter Details Date Type Department Care Team (Late st Contact Info) Description 12/31/2021 Lab Requisition [facility] Pathology & Laboratory Medicine - [facility] [address] [place] [address] Dion Vilchis MD [address] [place] [address], [address] [place] [address] Sebaceous cyst Social History Tobacco Use Types Packs/Day Years [...] Priority Date/Time Associated Diagnosis Comments SURGICAL PATHOLOGY Today 12/28/2021 14 :05 EDT Sebaceous cyst documented in this encounter Results * SURGICAL PATHOLOGY (12/28/2021 14:05 EDT) Note to Patient The following pathology results have been interpreted by your pathologist and may be available to you before your health provider has had the opportunity to review them. Please allow time for your provider to receive these results and explore management options, if applicable. 01/02/2022 10:33 EDT [facility] Final Diagnosis A. SOFT TISSUE OF RIGHT LOWER BACK, MASS, EXCISION: - Follicular cyst, infundibular type. 01/02/2022 10:33 EDT [facility] Attestation There was significant resident/fellow involvement in the diagnostic evaluation of this case. By the signature below, the attending physician certifies that they have personally conducted a gross and/or microscopic examination of the described specimens and rendered or confirmed the above diagnosis. 01/02/2022 10:33 [facility] at 1033 Clinical History Soft tissue mass of right lower back 01/02/2022 10:33 [facility] Gross Description A. Received in formalin labelled with proper patient identification (initials G, G) and soft tissue mass R lower back is an unoriented fluctuant ovoid white soft tissue 4.5 x 4.0 x 2.5 cm. The outer surface is inked blue. An ellipse of overlying irene skin is present (6.0 x 1.3 cm) with a white linear scar (2.5 cm in length). Sectioning discloses a simple cyst filled with white keratinous material. Heating Element Winder sections are submitted as A1-A3. Zackery Ahumada MD 12/31/2021 15:03 01/02/2022 10:33 [facility] Resident/Zack w: Zackery Ahumada MD 01/02/2022 10:33 [facility] Performing Lab [facility] 01/02/2022 10:33 [facility] Scanned Images 01/02/2022 10:33 [facility] Tissue SOFT TISSUE / Unknown 12/28/2021 14:05 EDT 12/31/2021 8:34 EDT us Dion Vilchis MD PATHOLOGY ORDERABLES Final Resu lt [facility] [address] [place] [address] documented in this encounter Visit Diagnoses Diagnosis Sebaceous cyst documented in this encounter Care Teams Music Adapter Relationship Specialty Start Date End Date Unknown, Provider, PCP - General 12/19/12 documented as of this encounter
--- OUTSIDE RECORDS SUMMARY | 2024-04-09 13:57 | XMS_ITS | Encounter Summary ---
Author Organization [facility] [place] [address] Care Team Providers Care Cdl Driver Name Role Phone Moses Foster MD Primary Care Provider [phone] Reason for Visit * Reason Comments Radiation Follow-up prostate cancer Encounter Details Date Type Department Care Team (Late st Contact Info) Description 12/12/2016 9:00 AM EDT Office Visit Radiation Oncology at [address] [phone] Joana Layton, REGULATORY AFFAIRS ASSISTANT Malignant neoplasm of prostate Social History Tobacco [...] Sign Reading Time Taken Comments Blood Pressure 132/79 12/12/2016 9:01 AM EDT Pulse 57 12/12/2016 9:01 AM EDT Temperature 36.1 ??C (97 ??F) 12/12/2016 9:01 AM EDT Respiratory Rate 18 12/12/2016 9:01 AM EDT Oxygen Saturation 100% 12/12/2016 9:01 AM EDT Inhaled Oxygen Concentration - - Weight 71.6 kg (157 lb 12.8 oz) 12/12/2016 9:01 AM EDT Height - - Body Mass Index 24.71 10/29/2012 10:25 AM EDT documented in this encounter Patient Instructions * Patient Instructions* Joana Layton APRN - 12/12/2016 9:00 AM EDT Date PSA testosterone 12/04/2016 < 0.1 215 06/06/16 <0.1 150 12/06/15 <0.1 99 06/06/2015 < 0.1 62 02/06/2015 < 0.1 27 11/02/2014 < 0.1 < 20 07/25/2014 < 0.1 < 20 04/13/2014 < 0.1 15 01/11/2014 < 0.1 < 20 09/30/2013 <0.1 <20 06/24/2013 <0.03 ?? 09/28/2012 57.2 ?? 08/27/2012 93.30 ?? Vitals Office Visit from 12/12/2016 in Radiation Oncology at [facility] Weight - Scale 71.6 kg (157 lb 12.8 oz) Temp 36.1 ??C (97 ??F) Heart Rate 57 Heart Rate Source NIBP Resp 18 BP 132/79 BP Location Left arm Patient Position Sitting SpO2 100 % documented in this encounter Progress Notes * Joana Layton APRN - 12/12/2016 9:00 AM EDT Identification: Allen Cerda is a 71 y.o. [...] Prostatic core needle biopsy, left mid:1. Adenocarcinoma, Quail grade 4 + 3, involvingapproximately 60% of the fragmented needle biopsy core.2. Perineural invasion is present. I - Prostatic core needle biopsy, left apex:1. Adenocarcinoma, Quail grade 3 + 4, involvingapproximately 10% of the single biopsy core.2. Perineural invasion is present. J - Prostatic core needle biopsy, left lateral base:1. Adenocarcinoma, Donny grade 4 + 5, involvingapproximately 70% of the single biopsy core (seeComment).2. Focus of intraluminal cancer, suspicious for lymphatic invasion. K - Prostatic core needle biopsy, left lateral mid:adenocarcinoma, Quail grade 4 + 4, involving [id number]% of the single biopsy core. L - Prostatic core needle biopsy, left lateral apex:Adenocarcinoma, Quail grade 3 + 3, involving less than 5%of the single biopsy core. M - Prostatic core needle biopsy, left nodule x 2:Adenocarcinoma, Donny grade 4 + 4, involving [id number]% of the multiple needle biopsy core fragments. [...] metastases. IPSS: 1 TRUS:46cc ALVINA: 25 TREATMENT: ASSISTANT MANAGER OF OPERATIONS ADT FOR 28 MONTHS PLANNED. Radiotherapy: Treatment: [...] Les Date 09/30/2013 Post Primary Therapy - Lse PSA <0.1 Adjuvant Therapy LHRH agonist--Casodex started [...] history on file. No Known Allergies Medications 12/12/16 0913 Medication Sig Taking? GLUC HCL/CSANA/GLY-AM-GLY,MX/C ([id number] GLYCN-C ORAL) Take by mouth daily. Yes [...] was last seen in clinic. He has rare non-distressing hot flashes only if he exerts himself. He is active working around his property and tolerating this. He finds that fatigue is mild and is able to do his usual work. He has no pain. He has no bowel issues with bowel function twice a day --he reports no constipation, no diarrhea, no hematochezia and no melena.--Mr Cerda had a colonoscopy done 12/29/2012 and four polyps were removed. He has no bladder issues. He denies dysuria, hematuria and incontinence His IPSS is stable at 2 to 3. He indicates that he is delighted with his urinary function. International Prostate Symptom Score Total Score__2_to 3__ 0 1 2 3 4 5 Not [...] Every 2 hours Every hour nocturia X X He is not sexually active--ALVINA=0 Review of Systems Constitutional: Negative. Negative for activity change and unexpected weight change. 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 Works in the [employer] Able to do some logging -- HENT: [...] disturbance. KPS: 100 Vitals Office Visit from 12/12/2016 in Radiation Oncology at [facility] Weight - Scale 71.6 kg (157 lb 12.8 oz) Temp 36.1 ??C (97 ??F) Heart Rate 57 Heart Rate Source NIBP Resp 18 BP 132/79 BP Location Left arm Patient Position Sitting SpO2 100 % Physical Exam Constitutional: He is oriented [...] Date PSA Testosterone (range 240 to 950) 12/04/2016 < 0.1 215 06/06/16 <0.1 150 12/06/15 <0.1 99 06/06/2015 < 0.1 62 02/06/2015 < 0.1 27 11/02/2014 < 0.1 < 20 07/25/2014 < 0.1 < 20 04/13/2014 < 0.1 15 01/11/2014 < 0.1 < 20 09/30/2013 <0.1 <20 06/24/2013 <0.03 ?? 09/28/2012 57.2 ?? 08/27/2012 93.30 ?? Assessment: Allen Cerda is a very pleasant 71 y.o. year-old male with high risk prostate cancer, T2a, Donny 4+5=9, PSA 57.2 s/p definitive radiation with neoadjuvant/concurrent androgen deprivation (combined androgen blockade) who completed androgen deprivation (Lupron) with his last injection on 11/02/2014 completing 28 months of therapy. Mr Cerda completed radiation in March 2013. PSA is undetectable. Testosterone above castrate level and which is slowly rising and is now 215. We reviewed his lab results. He has no side effects from radiation. I reviewed the need for continued PSA monitoring. Due to group home ADT he had a DEXA scan done [...] PM EST Office Visit Radiation Oncology at [address] [phone] Brenda Calvin PA [facility] [address] [place] [address] documented as of this encounter Visit Diagnoses Diagnosis Malignant neoplasm of prostate documented in this encounter Care Teams Cdl Driver Relationship Specialty Start Date End Date Moses Foster MD PCP - General 08/20/16 documented as of this encounter
--- OUTSIDE RECORDS SUMMARY | 2024-04-09 13:57 | XMS_ITS | Encounter Summary ---
Author Organization [facility] [place] [address] Care Team Providers Care Broke Beater Machine Operator Name Role Phone Moses Foster MD Primary Care Provider [phone] Encounter Details Date Type Department Care Team (Late Contact Info) Description 02/22/2022 Orders Only Radiation Oncology at [address] [phone] Gina Luna, WAREHOUSE DISTRIBUTION MANAGER [address] [place] [address] Prostate cancer; Prostate disorder Social History Tobacco Use Types Packs/Day Years [...] PM EST Office Visit Radiation Oncology at [address] [phone] Brenda Calvin PA [facility] HEMATOLOGY [place] [address] documented as of this encounter Visit Diagnoses Diagnosis Prostate cancer Malignant neoplasm of prostate Prostate disorder Unspecified disorder of prostate documented in this encounter Care Teams Broke Beater Machine Operator Relationship Specialty Start Date End Date Moses Foster MD PCP - General 08/20/16 documented as of this encounter
--- OUTSIDE RECORDS SUMMARY | 2024-04-09 13:57 | XMS_ITS | Encounter Summary ---
Author Organization [facility] Address [address] [place] [address] Care Team Providers Care Lambskin Trimmer Name Role Phone Unknown, Provider Primary Care Provider Unava ilable Encounter Details Date Type Department Care Team (Late st Contact Info) Description 03/01/2020 Lab Requisition [facility] Pathology & Laboratory Medicine - [facility] [address] [place] [address] Outr Resulting Lab, Provider Social History Tobacco Use Types Packs/Day Years [...] Procedure Name Priority Date/Time Associated Diagnosis Comments PSA TOTAL, DIAGNOSTIC After X-Ray 02/15/2020 8:21 EST documented in this encounter Results * PSA TOTAL, DIAGNOSTIC (02/15/2020 8:21 EST) PSA 0.2 0.0 - 6.5 ng/mL 03/27/2020 16:[address] [facility] Blood VENOUS BLOOD / Unknown 02/15/2020 8:21 EST 03/24/2020 13:11 EST [address] [facility] - 03/27/2020 16:10 EST NOTE: Serum PSA concentration should not be interpreted as absolute evidence for the presence or absence of malignant disease. Assayed on Siemens ADVIA Centaur XPT using chemiluminescent technology.??Values obtained by using different assay methods cannot be used interchangeably. us Provider Outr Resulting Lab CHEMISTRY & BLOOD GA S ORDERABLES Final Result [facility] [address] [place] [address] documented in this encounter Visit Diagnoses Not on filedocumented in this encounter Care Teams Lambskin Trimmer Relationship Specialty Start Date End Date Unknown, Provider, PCP - General 12/19/12 documented as of this encounter
--- OUTSIDE RECORDS SUMMARY | 2024-04-09 13:57 | XMS_ITS ---
Author Organization [facility] [place] [address] Care Team Providers Care Ball Mill Mixer Name Role Phone Moses Foster MD Primary Care Provider [phone] Active Problems Problem Noted Date Diagnosed Date Prostate cancer 12/25/2012 Cancer Staging:Clinical:Stage IIB(Free text: IIB - high risk) - Signed by Keven Smith MD on 02/03/2013 PSA elevation 09/22/2012 Prostate nodule 09/22/2012 Current Oncology Plans No current plan information found. Past Plans No past plan information found. Radiation Treatments * No radiation treatments are documented for this patient in [facility]. Treatments may have been administered in another system. Treatment Summaries Prostate cancer* Cancer Treatment Summary Provided by Joana Layton on 12/12/16 General Information Patient name Allen Cerda (home) Date of 1945 Support contact Argenis Cerda Care Team Medical Oncologist N/A Surgeon/urologist Dr Moses Préez Radiation Oncologist Dr Armani Bejarano and Dr Keven Smith Primary Care Physician Moses Foster Treatment Summary Chemotherapy and Supportive Care Treatment History Prostate Cancer Notes 10/27/2013, update 04/21/2014, update [...] of Bone Scan 10/20/2012 Prostate confined yes PRINCESS--extracapsular extension -negative on MRI SV-seminal vesicle extension -negative on MRI Regular lymph Nodes -negative on MRI Distant Mets -negative [...] left hip with Frax xcore of 2.3% Follow-up and Survivorship Care Monitor for ongoing toxicities: Advance Directive: Designated DPOA Ongoing surveillance: --year one to three post treatment: PSA, testosteron, CBC, CMP and clinical exam every three months --year three to five--PSA and clinical evaluation every six months --after year five--PSA and clinical exam once a year Followup is to check to make sure that there is no recurrence and to check for late effects of treatment. Potential late effects of treatment(s): Late and chcf effects or radiation therapy to the prostate include the followin. Changes in urinary flow due to fibrosis or scaring that can occur to the bladder neck. Let your cancer team know if you are having difficulty voiding 2. Blood in your urine could be due to previous radiation therapy. You may be at increased risk fora bladder tumor so this symptom needs to be evaluated if it occurs, with CT scans of your abdomen and pelvis and a cystoscopy to look inside your bladder. You have an increased risk of having a bladder cancer so any bleeding needs to be evaluated. 3. Blood in your stool: Radiation therapy can cause some blood vessel changes to the lining of yourrectum called angioectasias. If you see blood in your stool you need to let your doctor know. 4. Erectile dysfunction can result from treatment 5. Usual effects of hormone depletion drugs include fatigue, anemia, weight gain, bone mass loss which can lead to osteoporosis, hot flashes, muscle mass loss, breast tenderness, changes in liver function, elevation of blood glucose, loss of libido (desire for sexual function, mood changes. 6. Incontinence Call your doctor if you have any of these signs and symptoms: Difficulty or changes in your urine flow Blood in your urine or stool New pain that does not go away after two weeks You should have a colonoscopy every five to ten years You should have your PSA checked as noted above. These recommendations are from the National cancercare Network (NCCN) guidelines. . Your PSA results have been as follows: Date PSA testosterone 12/04/2016 < 0.1 215 06/06/16 <0.1 150 12/06/15 <0.1 99 06/06/2015 < 0.1 62 02/06/2015 < 0.1 27 11/02/2014 < 0.1 < 20 07/25/2014 < 0.1 < 20 04/13/2014 < 0.1 15 01/11/2014 < 0.1 < 20 09/30/2013 <0.1 <20 06/24/2013 <0.03 ?? 09/28/2012 57.2 ?? 08/27/2012 93.30 ?? Laboratory Studies: Wellness: PCP followup--continue to see your primary doctor at least yearly for health Maintenance Immunization--Flu vaccine: Immunization of inactivated vaccines is recommended for cancer survivors. This includes yearly flu vaccines. CDC guidelines for pneumococcal vaccines. Exercise--we recommend regular exercise for bone health and for overall well being. Engage in at least 20-30 minutes of moderate intensity activity on most days of the week. Include strength trainingexercises at least two days a week. Screenings--cancer screening: colonoscopy every five to ten years based on Findings and based on age. Nutrition--Follow the [place] [employer] Society Guidelines that include the following: limit consumption of processed meat and red meat; eat at least 2.5 cups of vegetables and fruits daily; choose whole grains instead of refined grain products. High fiber and low fat diet is advised. You need to avoid constipation and straining. Hydration--good hydration with water and avoiding caffeine to minimize risk of bladder irritation and bleeding. Smoking --Smoking increases your risk for many types of cancer. There are counselors who can help you with smoking cessation. Alcohol: Minimize alcohol intake to one two drinks per day for men. (1.5 oz. hard alcohol, 5 oz. wine, 12 oz. beer). Sunscreen: Use sunscreen with SPF/UVA and UVB whenever you are out in the sun for more than 15 minutes. Use protective clothing such as hats, and long sleeves. Alteration in Sexual function: There are no restrictions in being sexually active. Pelvic radiationwill cause you to have a dry ejaculate when you are sexually active. This is a permanent change. Some men experience erectile dysfunction as a result of cancer treatment. Discuss your concerns with your cancer team to look at treatment options Bone Health: You have/are taking medications that can cause bone mass loss. It is recommended that you have a bone density exam every two years. Take calcium 1200mg a day and vitamin D3 1000 IU a day. Weight bearing exercise can also reduce bone mass loss. Testosterone replacement: Do not start testosterone replacement. This increases your risk of prostate cancer recurrence. Comment: Based on current guidelines if your PSA were to rise to 2.0 you would be considered to have biochemical failure a term that means that your doctor should do some tests to determine if there is recurrence of your prostate cancer. Those tests should include a CT scan of your abdomen and pelvis as well as a nuclear bone scan. If your PSA were to rise at that level you should be seen by a medical oncologist for a consultation to calculate your PSA doubling time and to determine the timing for considering starting what is called hormone therapy and or chemotherapy. Resources: Helpful websites www. cancer. gov National Cancer [place] www.nccn.org National Comprehensive Cancer Network www.canceradvocacy.org National Coalition for Cancer Survivorship www.livestrong.org Livestrong Survivor Care www.acscsn.org Cancer Survivors Network Joana Layton [facility]- Radiation Oncology Adapted from [place] Society of Clinical Oncology 2008 Cancer Treatment Plan Summary Survivorship care provider contacts HOSE WRAPPER: Joana Layton
--- OUTSIDE RECORDS SUMMARY | 2024-04-09 13:57 | XMS_ITS | Encounter Summary ---
Author Organization [facility] [place] [address] Care Team Providers Care Resident Care Manager Name Role Phone Moses Foster MD Primary Care Provider [phone] Reason for Visit * Reason Comments Radiation Follow-up prostate cancer Encounter Details Date Type Department Care Team (Late st Contact Info) Description 12/18/2017 2:30 PM EDT Office Visit Radiation Oncology at [address] [phone] Joana Layton, VENDING ROUTE DRIVER Malignant neoplasm of prostate Social History Tobacco [...] Sign Reading Time Taken Comments Blood Pressure 137/76 12/18/2017 2:39 PM EDT Pulse 62 12/18/2017 2:39 PM EDT Temperature 36.9 ??C (98.4 ??F) 12/18/2017 2:39 PM ED T Respiratory Rate 16 12/18/2017 2:39 PM EDT Oxygen Saturation 99% 12/18/2017 2:39 PM EDT Inhaled Oxygen Concentration - - Weight 69 kg (152 lb 3.2 oz) 12/18/2017 2:39 PM EDT Height 167.6 cm (5' 6) 12/18/2017 2:39 PM EDT Body Mass Index 24.57 12/18/2017 2:39 PM EDT documented in this encounter Patient Instructions * Patient Instructions* Joana Layton APRN - 12/18/2017 2:30 PM EDT Date PSA Testosterone (range 240 to [...] 08/27/2012 93.30 ?? Vitals Office Visit from 12/18/2017 in Radiation Oncology at [facility] Weight 69 kg (152 lb 3.2 oz) Height 167.6 cm (5' 6) BSA (Calculated - sq m) 1.79 sq meters BMI (Calculated) 24.56 Temp 36.9 ??C (98.4 ??F) Temp src Oral Heart Rate 62 Heart Rate Source NIBP Resp 16 BP 137/76 BP Location Left arm Patient Position Sitting SpO2 99 % documented in this encounter Progress Notes * Joana Layton APRN - 12/18/2017 2:30 PM EDT Images from the original note were [...] Prostatic core needle biopsy, left base: Adenocarcinoma, [place] grade 4 + 3, involving approximately 50% of the single biopsy core. H - Prostatic core needle biopsy, left mid:1. Adenocarcinoma, [place] grade 4 + 3, involvingapproximately 60% of [...] Prostatic core needle biopsy, left lateral mid:adenocarcinoma, [place] grade 4 + 4, involving zufvrchmirjgb72% of the single biopsy core. L - Prostatic core needle biopsy, left lateral apex:Adenocarcinoma, [place] grade 3 + 3, involving less than 5%of the single biopsy core. M - Prostatic core needle biopsy, left nodule x 2:Adenocarcinoma, Donny grade 4 + 4, involving lnwfzgqucyxog23% of the multiple needle biopsy core fragments. [...] metastases. IPSS: 1 TRUS:46cc ALVINA: 25 TREATMENT: DIGESTER HAND ADT FOR 28 MONTHS PLANNED. Radiotherapy: Treatment: Definitive radiation with Neoadjuvant/Concurrent/Adjuvant Androgen Deprivation. PROSTATE Plan Start Tx Last Tx Elapsed Days Fractions Dose (cGy) PTV1 Pelvis 01/14/2013 02/17/2013 34 25 / @ 180.0 cGy 4500 / 4500 Energy [...] Biopsy 10/05/2012 Volume in cc 46 cc [place] grade/score a+b=c 4+5=9 Total Cores 13 biopsy [...] history on file. No Known Allergies Medications 12/18/17 1457 Medication Sig Taking? GLUC HCL/CSANA/GLY-AM-GLY,MX/C (SMGTXZCA-[id number]-SW GLYCN-C ORAL) Take by mouth daily. Yes [...] he was last seen in clinic. He did have a lipoma that was on his right lower back removed. He reports resolution of previous symptoms related to androgen deprivation. He remains active working around his property and tolerating this. He has been logging and exercising regularly. He has no pain. He has no bowel issues with bowel function --he reports no constipation, no diarrhea, no [...] change. 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 Neurological: Negative. Negative for weakness. Hematological: Negative. Psychiatric/Behavioral: Negative. Negative for sleep disturbance. KPS: 100 Vitals Office Visit from 12/18/2017 in Radiation Oncology at [facility] Weight 69 kg (152 lb 3.2 oz) Height 167.6 cm (5' 6) BSA (Calculated - sq m) 1.79 sq meters BMI (Calculated) 24.56 Temp 36.9 ??C (98.4 ??F) Temp src Oral Heart Rate 62 Heart Rate Source NIBP Resp 16 BP 137/76 BP Location Left arm Patient Position Sitting SpO2 99 % [...] is not diaphoretic. No erythema. No pallor. Right lower back incision is clean and dry with no inflamation Psychiatric: He has a normal mood and [...] which is slowly rising and is now normal at 244 We reviewed his lab results. He has no side effects from radiation. I reviewed the need for continued PSA monitoring. 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 His Frax score was 2.3% I reviewed potential late effects from radiation and side effects from ADT. He was again recommended to continue Vitamin D and calcium for bone health and to continue exercise. All questions were addressed. Plan: 1. He is now nearly five years from completion of treatment and per [...] EST Office Visit Radiation Oncology at [address] [phone] Brenda Calvin PA [facility] HEMATOLOGY [place] [address] documented as of this encounter Visit Diagnoses Diagnosis Malignant neoplasm of prostate documented in this encounter Care Teams Resident Care Manager Relationship Specialty Start Date End Date Moses Foster MD PCP - General 08/20/16 documented as of this encounter
--- OUTSIDE RECORDS SUMMARY | 2024-04-09 13:57 | XMS_ITS | Encounter Summary ---
Author Organization [facility] Address [address] [place] [address] Care Team Providers Care Order Selector Name Role Phone Unknown, Provider MD Primary Care Provider Unava ilable Encounter Details Date Type Department Care Team (Late st Contact Info) Description 02/15/2020 Results Only [facility] [place] [address] [address] Unknown, Provider, Social History Tobacco Use Types Packs/Day Years [...] Date/Time Associated Diagnosis Comments SURGICAL PATHOLOGY Routine 02/15/2020 documented in this encounter Results * SURGICAL PATHOLOGY (02/15/2020) 02/15/2020 02/16/2020 13: 35 EST Narrative [facility] - 02/17/2020 16:04 EST [id number] ----- ------- Name: ALLEN CANCINO ? : [birth year] ?Age/Sex: 75/M ?Unit#: [id number] ? Loc: LAB.POP ? Status: REG REF ?? Reg Date: 02/14/20 ? Pt.Phone Number: ? ----- ------- Specimen: [id number] ? STATUS: SOUT ?Spec Date:02/15/20 ? Physician Copies: ?NONE,NONE ? Tissues: A ?? Skin, other than cyst (SCALP 8 MM ) ?YARELIS CHRISTIANSON ? CPT: 46879 ?? Units: ??1 ?FINAL DIAGNOSIS ? SKIN OF SCALP, PUNCH BIOPSY: ? - Seborrheic keratosis, irritated and inflamed. ----- ------- ?COMMENT ? GROSS DESCRIPTION ? Received in formalin labeled with proper patient identification (initials G,G) ? and head lesion is a punch biopsy of a protruding jiménez-brown, crusted, ? hair-bearing papule (0.7 x 0.7 x 0.7 cm). ??The specimen is bisected and ? submitted in one cassette. ? PREOP DX/CLINICAL HISTORY ?Dark, growing, partially verrucous papule; wart vs SCC vs ?atypical SK; apex scalp Signed ____(signature on file)____ Bertha Devlin M.D. 02/17/20 ?? By the signature above, the attending physician certifies that he/she has personally conducted a gross and/or microscopic examination of the described specimens and rendered or confirmed the above diagnosis. Test Performed by [facility], [address] [place] [address] Ceramic Designer: Cecelia Herrera MD PHD ----- ------- us Provider Unknown MD PATHOLOGY ORDERABLES Final R esult [facility] [address] [place] [address] documented in this encounter Visit Diagnoses Not on filedocumented in this encounter Care Teams Order Selector Relationship Specialty Start Date End Date Unknown, Provider, PCP - General 12/19/12 documented as of this encounter
--- OUTSIDE RECORDS SUMMARY | 2024-04-09 13:57 | XMS_ITS | Encounter Summary ---
[facility] [place] [address] Care Team Providers Care Match Maker Name Role Phone Howard Rayo MD Primary Care Provider [phone] Encounter Details Date Type Department Care Team (Late st Contact Info) Description 11/02/2014 2:00 PM EDT Follow-Up Hematology/Oncology at [address] [phone] Yolande Rosa APRN Prostate cancer Discharge Disposition: Home Social History Tobacco Use Types Packs/Day Years [...] Sign Reading Time Taken Comments Blood Pressure 146/76 11/02/2014 2:01 PM EDT Pulse 79 11/02/2014 2:01 PM EDT Temperature 36.7 ??C (98.1 ??F) 11/02/2014 2:01 PM ED T Respiratory Rate 18 11/02/2014 2:01 PM EDT Oxygen Saturation 97% 11/02/2014 2:01 PM EDT Inhaled Oxygen Concentration - - Weight - - Height - - Body Mass Index - - documented in this encounter Patient Instructions * Patient Instructions* Yolande Rosa APRN - 11/02/2014 3:13 PM EDT He will return in 3 monthswith labs prior cbc cmp psa testosterone. He will receive lupron. documented in this encounter Progress Notes * Yolande Rosa APRN - 11/02/2014 3:08 PM EDT Identification: Allen Cerda is a 69 y.o. 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 He was treated with radiation therapy 79.2 Gy and completed treatment on 03/19/2013. He is in clinic for scheduled follow up. 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 HPI Mr. Allen Cerda injured his back [...] Prostatic core needle biopsy, left base: Adenocarcinoma, Fisher grade 4 + 3, involving approximately 50% [...] mid:adenocarcinoma, Donny grade 4 + 4, involving diqnoqedbakwv82% of the single biopsy core. L - Prostatic core needle biopsy, left lateral apex:Adenocarcinoma, Fisher grade 3 + 3, involving less than 5%of the single biopsy core. M - Prostatic core needle biopsy, left nodule x 2:Adenocarcinoma, Fisher grade 4 + 4, involving txncarmvjofbk75% of the multiple needle biopsy core fragments. [...] metastases. 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 Radiotherapy: Treatment: [...] visit summary Prostate Cancer Notes 10/27/2013, update 04/21/2014 Date of Presentation 08/27/2012 Age at Presentation [...] given as follows: 11/10/2012 --Lupron 22.5 mg 02/01/2013--Lupron 22.5 mg 04/27/2012--Lupron 22.5 mg 07/23/2013-Lupron 22.5 mg 10/21/2012--Lupron 22.5 mg 01/20/2014-Lupron 22.5 mg 04/21/2014--Lupron 22.5 mg 07/28/2014-- Lupron 22.5 mg ADT Duration in Months 28 months planned. Patient Active Problem List Diagnosis Code ??? PSA elevation 790.93 ??? Prostate nodule 600.10 ??? Prostate cancer 185 ---arthritis No past surgical history on file. No Known Allergies Current Outpatient Prescriptions on File Prior to Visit Medication Sig Dispense Refill ??? LEUPROLIDE ACETATE (LUPRON DEPOT, 3 MONTH, IM) Inject into the muscle. ??? ibuprofen (ADVIL;MOTRIN) 200 mg tablet Take 400 mg by mouth every 6 hours as needed. Indications: Pain, chronic back pain Current Facility-Administered Medications on File Prior to Visit Medication Dose Route Frequency Provider Last Rate Last Dose ??? [COMPLETED] leuprolide (LUPRON) injection 22.5 mg 22.5 mg Intramuscular Once Yolande Rosa APRN 22.5 mg at 11/02/14 1444 History Social History ??? Marital Status: Spouse [...] has no pain. He has no bowel issues--he reports no constipation, no diarrhea, no hematochezia and no melena.--Mr Cerda had a colonoscopy done 12/29/2012 and four polyps were removed. He has no bladder issues. He denies dysuria, hematuria and incontinence His IPSS is lower and is now 2. He indicates that he is delighted with his urinary function. Otherwise his ROS is negative. International Prostate Symptom Score Total Score__3 to [...] Constitutional: Negative. Does lots work around his house Hot flashes--do not interfere with sleep--no change Some fatigue No breast tenderness Working on his wood for the winter. HENT: Negative. Eyes: Negative. Respiratory: Negative. Negative [...] history Musculoskeletal: Negative. Negative for arthralgias. Back hurts if does too much Back is feeling better overall Neurological: Negative. Hematological: Negative. Psychiatric/Behavioral: Negative. KPS: 100 Temp: [36.7 ??C (98.1 ??F)] Heart Rate: [79] Resp: [18] BP: (146)/(76) SpO2: [97 %] Physical Exam Constitutional: He is oriented to person, place, and time. He appears well- developed and well-nourished. No distress. HENT: Head: Normocephalic and atraumatic. Eyes: Conjunctivae and EOM are normal. No scleral icterus. Genitourinary: Rectal deferred Musculoskeletal: Normal range of motion. He exhibits no edema or tenderness. Psychiatric: He has a normal mood and affect. His behavior is normal. Judgment and thought content normal. 01/11/2014 04/13/2014 10/31/14 WBC 4.3 4.54 4.5 RBC 4.69 4.45 4.6 HCT 41.3 39.0 39.9 HGB 14.4 13.5 13.9 PLAT 219 202 179 CA 9.0 8.9 BUN 12 10 CREAT 0.8 0.8 EGFR >60 >60 T PROT 6.6 6.7 ALB 3.6 3.7 BILI T 0.42 0.52 ALK P 94 83 AST 26 22 ALT 23 21 NA 138 142 K 4.0 3.9 07/25/2014--CBC CMP reviewed --no concerns. Date PSA testosterone 11/02/14 <0.1 <20 07/25/2014 < 0.1 < 20 04/13/2014 < 0.1 15 01/11/2014 < 0.1 < 20 09/30/2013 <0.1 <20 06/24/2013 <0.03 09/28/2012 57.2 08/27/2012 93.30 Assessment: Allen Cerda is a very pleasant 69 y.o.male with high risk prostate cancer, T2a, Fisher 4+5=9, PSA 57.2 s/p definitive radiation with neoadjuvant/concurrent androgen deprivation (combined androgen blockade) and is continuing on androgen deprivation (Lupron) for a planned total time of 28 months. Mr Cerda completed radiation in March 2013. PSA is undetectable. Testosterone castratelevel We reviewed his lab results. He has no/minimal residual side effects from radiation. He has mild fatigue and hot flashes from ADT. I reviewed the need for continued PSA monitoring. I reviewed potential late effects from radiation and side effects from remaining on ADT. We discussed his treatment plan again. He was concerned because Dr Bejarano has left. I explained to him that we would follow him closely and that if he started to have a rising PSA that did not seem tostabilize after treatment, we would order the appropriate tests to evaluate him and refer him to anOncologist - if need be. This information provided him with some relief. All questions were addressed. Plan: 1. Lupron 22.5 mg to be given today. 2. Next Lupron due in January.. Total planned time 28 months.that should complete his 28 months of treatment. 3. Labs/FU in [facility] with PSA, testosterone CBC, CMP in January 2015 with Joana Layton APRN. Patient is to call if he has any questions or concerns. documented in this encounter Plan of Treatment Upcoming Encounters Date Type Department Care Team (Late st Contact Info) Description 04/15/2024 1:00 PM EST Office Visit Radiation Oncology at [address] [phone] Brenda Calvin PA [facility] [address] [place]ATOLOGY [place] [address] documented as of this encounter Procedures Procedure Name Priority Date/Time Associated Diagnosis Comments LAB SCAN 02/03/2015 12:00 AM EDT CHEMOTHERAPY SCAN 10/25/2014 12:00 AM EDT documented in this encounter Results * SCAN DOC: LAB (02/03/2015 12:00 AM EDT) Scanning Provider MEDIA MGR SCAN EXT O RDR/RSLT * SCAN DOC: CHEMOTHERAPY (10/25/2014 12:00 AM EDT) Scanning Provider MEDIA MGR SCAN EXT O RDR/RSLT documented in this encounter Visit Diagnoses Diagnosis Prostate cancer Malignant neoplasm of prostate documented in this encounter Care Teams Match Maker Relationship Specialty Start Date End Date Howard Rayo MD [facility] [address] [place] [address] PCP - General 08/28/12 08/19/16 documented as of this encounter
--- OUTSIDE RECORDS SUMMARY | 2024-04-09 13:58 | XMS_ITS | Encounter Summary ---
[place] [address] Care Team Providers Care Conservation Scientist Name Role Phone Howard Rayo MD Primary Care Provider [phone] Reason for Visit * Reason Onset Date Comments Other 09/23/2012 pre psa clinic c all Encounter Details Date Type Department Care Team (Late st Contact Info) Description 09/23/2012 [place] [phone] Titi Chong, RN Other (pre psa clinic call) Social History Tobacco Use Types Packs/Day Years Used Date Smoking Tobacco: Former Sex and Gender Information Value Date Recorded Sex Assigned at Not on file Gender Identity Not on file Sexual Orientation Not on file documented as of this encounter Miscellaneous Notes * Telephone Encounter - Titi Chong, RN - 09/23/2012 10:18 AM EDT Reason for call: PSA clinic appointment on 10/05/12. Scheduled for Bx at this time? Yes_X__ No___ If yes, ABX script given Yes_X__ No___ Patient given RX for Levaquin by Dr. Mckeon with instructions Meds/Allergies: updated 09/23/12 (reviewed and charted) Review for anti-coag medications: (Coumadin, Plavix, ASA, NSAIDS) No __ Yes _X_ If yes instruct pt to contact PCP or prescribing physician for further instruction as to discontinuing and restarting anti-coagulant therapy for Biopsy. If unable to discontinue medication as per PCPpt to keep appointment and if biopsy warranted will be scheduled for a later date. Patient will hold Motrin 7 days prior to appt Review OTC, herbal and vitamin supplements for potential anti-coag effect: (ginko biloba, tea, fever few, garlic, herbal teas with supplements added, Vit C,) No _X_ Yes __ If yes and recommended by PCP: check with PCP and follow instructions given for discontinuing and restarting OTC and supplements If yes and pt started: pt to stop supplements for 1 week prior and 1 week after biopsy. Labs: Repeat PSA Yes _X_ Free PSA (must be at least 10 days prior to clinic) Yes __ when done ____ Have all labs faxed to Dr Pérez's office (fax # [phone]) or hand carried the day of the appointment. Pt mailed lab slip for a repeat PSA prior to appt Patient Hx: Leaky heart valve, artifical heart valve, hx of heart attack and/or problems No _X_ Yes__ if yes, when contact Dr Pérez Artifical Joint Replacement No _X_ Yes __ if yes, when contact Dr. Pérez Other 1. Ref Dr mckeon's note dtd 09/22/12 Patient Instructions/Information: Patient does not need to be NPO for biopsy. Patient to purchase Fleet Enema and use according to directions the morning of appointment if pt agreeable to have biopsy if offered at this appointment. If patient chooses to reschedule biopsy for a later date then no enema needed. Patient will meet with Dr Pérez to discuss lab results and have a CANDIS to determine need for biopsy. Patient may park in Parking Garage Registration is at Hem/Onc packaging technician on 3rd floor. Questionaires: Has pt filled out: Urinary Function Questionaire? Yes___ No___ Elevated PSA Clinic Questionaire? Yes___ No___ Patient understands and is able to verbalize back to this nurse the above information. Patient agrees to the POC, knows when and how to call if need arises. documented in this encounter Plan of Treatment Upcoming Encounters Date Type Department Care Team (Late st Contact Info) Description 04/15/2024 1:00 PM EST Office Visit Radiation Oncology at [address] [phone] [facility] [place] [address] documented as of this encounter Visit Diagnoses Not on filedocumented in this encounter Care Teams Conservation Scientist Relationship Specialty Start Date End Date Howard Rayo MD [facility] [address] [place] [address] PCP - General 08/28/12 08/19/16 documented as of this encounter
--- OUTSIDE RECORDS SUMMARY | 2024-04-09 13:58 | XMS_ITS | Encounter Summary ---
Author Organization [facility] [address] Care Team Providers Care Share Dairy Farmer Name Role Phone Howard Rayo MD Primary Care Provider [phone] Encounter Details Date Type Department Care Team (Late st Contact Info) Description 12/18/2012 Orders [place] [address] Armani Bejarano MD Prostate cancer (Primary Dx) Social History Tobacco [...] PM EST Office Visit Radiation Oncology at [address] [phone] Brenda Calvin PA [facility] [address] [place] [address] documented as of this encounter Visit Diagnoses Diagnosis Prostate cancer- Primary Malignant neoplasm of prostate documented in this encounter Care Teams Share Dairy Farmer Relationship Specialty Start Date End Date Howard Rayo MD [facility] [address] [place] [address] PCP - General 08/28/12 08/19/16 documented as of this encounter
--- OUTSIDE RECORDS SUMMARY | 2024-04-09 13:58 | XMS_ITS | Encounter Summary ---
Author Organization [facility] [place] [address] Care Team Providers Care Bin Packer Name Role Phone Howard Rayo MD Primary Care Provider [phone] Reason for Visit * Reason Comments Injections Prostate cancer-Lupr on 22.5mg Encounter Details Date Type Department Care Team (Heather st Contact Info) Description 02/01/2013 1:00 PM EDT Office Visit Hematology Oncology at [address] [phone] CLINIC, DR MARTINEZ HEM/ONC Prostate cancer (Primary Dx) Discharge Disposition: Home Social History Tobacco Use Types Packs/Day Years Used Date Smoking Tobacco: Former Sex and Gender Information Value Date Recorded Sex Assigned at Not on file Gender Identity Not on file Sexual Orientation Not on file documented as of this encounter Progress Notes * Yanelis Tijerina RN - 02/01/2013 3:09 PM EDT Infusion Note Diagnosis:Prostate Cancer Treatment: Lupron Injection Lupron 22.5mg injected in left buttocks Patient instructed on side effects of Lupron. Patient states understanding of teaching, Patient aware to call clinic with any questions or concerns. Plan: Return to clinic as scheduled. documented in this encounter Procedure Notes * Provider, Scanning - 02/01/2013 3:53 PM EDTAssociated Order(s): SCAN DOC: CHEMOTHERAPY documented in this encounter Plan of Treatment Upcoming Encounters Date Type Department Care Team (Late st Contact Info) Description 04/15/2024 1:00 PM EST Office Visit Radiation Oncology at [address] [phone] Brenda Calvin PA [facility] DR HEMATOLOGY [place] [address] documented as of this encounter Procedures Procedure Name Priority Date/Time Associated Diagnosis Comments CHEMOTHERAPY SCAN 02/01/2013 3:5 3 PM EDT documented in this encounter Results * SCAN DOC: CHEMOTHERAPY (02/01/2013 3:53 PM EDT) Narrative 02/01/2013 3:53 PM EDT Procedure Note Provider, Scanning - 02/01/2013 3:53 PM EDT Scanning Provider MEDIA MGR SCAN EXT O RDR/RSLT documented in this encounter Visit Diagnoses Diagnosis Prostate cancer- Primary Malignant neoplasm of prostate documented in this encounter Administered Medications Inactive Administered Medications - up to 3 most recent administrations Medication Order MAR Action Action Date Dose Rate Site leuprolide (LUPRON) injection 22.5 mg 22.5 mg, Intramuscular, ONCE, 1 dose, On 02/01/13 at 1330, Routine Given 02/01/2013 1:16 PM EDT 22.5 mg documented in this encounter Care Teams Bin Packer Relationship Specialty Start Date End Date Howard Rayo MD [facility] [address] [place] [address] PCP - General 08/28/12 08/19/16 documented as of this encounter
--- OUTSIDE RECORDS SUMMARY | 2024-04-09 13:58 | XMS_ITS | Encounter Summary ---
Author Organization [facility] [place] [address] Care Team Providers Care Mold Holder Name Role Phone Howard Rayo MD Primary Care Provider [phone] Reason for Visit * Reason Comments Injections Lupron Encounter Details Date Type Department Care Team (Late st Contact Info) Description 04/21/2014 2:30 PM EST Office Visit Hematology Oncology at [address] [phone] CLINIC, DR MARTINEZ HEM/ONC Prostate cancer Social History Tobacco Use Types [...] Progress Notes * Yanelis Tijerina RN - 04/21/2014 2:20 PM EST Infusion Note Diagnosis:Prostate Cancer Treatment: Lupron Injection Lupron 22.5mg injected in right buttocks Patient instructed on side effects of Lupron. Patient states understanding of teaching, Patient aware to call clinic with any questions or concerns. Plan: Return to clinic as scheduled. documented in this encounter Plan of Treatment Upcoming Encounters Date Type Department Care Team (Late st Contact Info) Description 04/15/2024 1:00 PM EST Office Visit Radiation Oncology at [address] [phone] Brenda Calvin PA [facility]OLOG[facility] [place] [address] documented as of this encounter Procedures Procedure Name Priority Date/Time Associated Diagnosis Comments CHEMOTHERAPY SCAN 04/21/2014 12:00 AM EST documented in this encounter Results * SCAN DOC: CHEMOTHERAPY (04/21/2014 12:00 AM EST) Scanning Provider MEDIA MGR SCAN EXT O RDR/RSLT documented in this encounter Visit Diagnoses Diagnosis Prostate cancer Malignant neoplasm of prostate documented in this encounter Administered Medications Inactive Administered Medications - up to 3 most recent administrations Medication Order MAR Action Action Date Dose Rate Site leuprolide (LUPRON) injection 22.5 mg 22.5 mg, Intramuscular, ONCE, 1 dose, On Monica 04/21/14 at 1430, Dose 1 of 2., Routine Given 04/21/2014 2:15 PM EST 22.5 mg Right Gluteal documented in this encounter Care Teams Mold Holder Relationship Specialty Start Date End Date Howard Rayo MD [facility] [address] [place] [address] PCP - General 08/28/12 08/19/16 documented as of this encounter
--- OUTSIDE RECORDS SUMMARY | 2024-04-09 13:58 | XMS_ITS | Encounter Summary ---
Author Organization [facility] [place] [address] Care Team Providers Care Dowel Machine Operator Name Role Phone Howard Rayo MD Primary Care Provider [phone] Reason for Visit * Reason Comments Other Encounter Details Date Type Department Care Team (Late st Contact Info) Description 10/12/2012 [place] [phone] Yarelis Pérez MD [facility] [place] [address] Social History Tobacco Use Types Packs/Day Years Used Date Smoking Tobacco: Former Sex and Gender Information Value Date Recorded Sex Assigned at Not on file Gender Identity Not on file Sexual Orientation Not on file documented as of this encounter Miscellaneous Notes * Telephone Encounter - Yarelis Pérez MD - 10/12/2012 6:11 PM EDT Gayle Cancino [address] [facility] [address] 10/12/2012 Dear Mr. Gayle Kitchenuld This is a short note in follow up on our telephone call. You will recall I evaluated you for a PSA of 57. On rectal exam I found a nodule in the left prostate As you will recall we performed a transrectal ultrasound and prostate biopsy. The biopsy found prostate cancer. Attached below is an excerpt from your pathology report. Surgical Pathology Final Report [facility] Provider: YARELIS PÉREZ Pt. Name: GAYLE CANCINO Acc #: [id number] Pt. Col Date: 10/05/2012 /Sex: 1945,(67 years),Male Rec Date: 10/05/2012 LOC: SURGICAL PATHOLOGY ---Pathologic Diagnosis--- A - Prostatic core needle [...] Prostatic core needle biopsy, left base: Adenocarcinoma, [place] grade 4 + 3, involving approximately 50% of the single biopsy core. H - Prostatic core needle biopsy, left mid: 1. Adenocarcinoma, Donny grade 4 + 3, involving approximately 60% of the fragmented needle biopsy core. 2. Perineural invasion is present. I - Prostatic core needle biopsy, left apex: 1. Adenocarcinoma, Donny grade 3 + 4, involving approximately 10% of the single biopsy core. 2. Perineural invasion is present. J - Prostatic core needle biopsy, left lateral base: 1. Adenocarcinoma, [place] grade 4 + 5, involving approximately 70% of the single biopsy core (see Comment). 2. Focus of intraluminal cancer, suspicious for lymphatic invasion. K - Prostatic core needle biopsy, left lateral mid: Adenocarcinoma, Donny grade 4 + 4, involving approximately 25% of the single biopsy core. L - Prostatic core needle biopsy, left lateral apex: Adenocarcinoma, [place] grade 3 + 3, involving less than 5% of the single biopsy core. M - Prostatic core needle biopsy, left nodule x 2: Adenocarcinoma, Donny grade 4 + 4, involving approximately 60% of the multiple needle biopsy core fragments. CR-0 10/06/12 VMS 10/06/12 Verified by: Brad Yates MD Pathologist (Electronic Signature) The attending pathologist whose signature appears on this report has reviewed all diagnostic slides and has edited the gross and/or microscopic portion of the report in rendering the final pathologic diagnosis. ---Comment--- In biopsy J, foci of comedo type necrosis are present within large ragged masses of fused glands, consistent with areas of secondary Donny 5 pattern. I have staged your prostate cancer as [id number] Harris[place] score 4+5=9 . As we discussed there is considerable controversy about the best management of prostate cancer. I enclose with this letter some information about the various treatment options for prostate cancer. Asyou will see there are several excellent alternatives and we will discuss all of these when you come to see me. Someone from my office should be contacting you to arrange a follow-up appointment in 1-2 weeks with r my partner Dr. Gill Domínguez and one of our Radiation Oncologists to discuss the management of your prostate cancer in more detail. Prior to the appointment we will arrange an MR of your prostate and a bone scan. In the meantime if you have any questions please contact my office at . Yours Sincerely, Wendy Sandoval. documented in this encounter Plan of Treatment Upcoming Encounters Date Type Department Care Team (Late st Contact Info) Description 04/15/2024 1:00 PM EST Office Visit Radiation Oncology at [address] [phone] [facility] DR [place] [address] documented as of this encounter Visit Diagnoses Diagnosis Prostate cancer- Primary Malignant neoplasm of prostate documented in this encounter Care Teams Dowel Machine Operator Relationship Specialty Start Date End Date Howard Rayo MD [facility] [address] [place] [address] PCP - General 08/28/12 08/19/16 documented as of this encounter
--- OUTSIDE RECORDS SUMMARY | 2024-04-09 13:58 | XMS_ITS | Encounter Summary ---
Author Organization [facility] [place] [address] Care Team Providers Care Machine Packager Name Role Phone Howard Rayo MD Primary Care Provider [phone] Reason for Visit * Reason Comments Radiation Follow-up prostate cancer Encounter Details Date Type Department Care Team (Late st Contact Info) Description 07/28/2014 10:30 AM EDT Follow-Up Radiation Oncology at [address] [phone] Joana Layton, REWEAVER Malignant neoplasm of prostate Discharge Disposition: Home Social History Tobacco Use [...] Sign Reading Time Taken Comments Blood Pressure 142/82 07/28/2014 10:29 AM EDT Pulse 63 07/28/2014 10:29 AM EDT Temperature 36.6 ??C (97.9 ??F) 07/28/2014 10:29 AM E DT Respiratory Rate 16 07/28/2014 10:29 AM EDT Oxygen Saturation 98% 07/28/2014 10:29 AM EDT Inhaled Oxygen Concentration - - Weight 71 kg (156 lb 8 oz) 07/28/2014 10:29 AM E DT Height - - Body Mass Index 24.51 10/29/2012 10:25 AM EDT documented in this encounter Patient Instructions * Patient Instructions* Joana Layton APRN - 07/28/2014 10:37 AM EDT Date PSA testosterone 07/25/2014 < 0.1 < 20 04/13/2014 < 0.1 15 01/11/2014 < 0.1 < 20 09/30/2013 <0.1 <20 06/24/2013 <0.03 09/28/2012 57.2 08/27/2012 93.30 Vitals Follow-Up from 07/28/2014 in Radiation Oncology Weight - Scale 70.988 kg (156 lb 8 oz) Temp 36.6 ??C (97.9 ??F) Temp Source Oral Heart Rate 63 Heart Rate Source Right, NIBP Resp 16 BP 142/82 mmHg BP Location Right arm Patient Position Sitting SpO2 98 % documented in this encounter Progress Notes * Joana Layton APRN - 07/28/2014 8:45 AM EDT Identification: Allen Cerda is a 69 y.o. year-old male with high risk prostate cancer, T2a, [place] 4+5=9, PSA 57.2. He was treated with radiation therapy 79.2 Gy and completed treatment on 03/19/2013. He is in clinic for scheduled follow up. 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 L - Prostatic core needle biopsy, left lateral apex:Adenocarcinoma, [place] grade 3 + 3, involving less than 5%of the single biopsy core. M - Prostatic core needle biopsy, left nodule x 2:Adenocarcinoma, [place] grade 4 + 4, involving [id number]% of the multiple needle biopsy core fragments. [...] metastases. IPSS: 1 TRUS:46cc ALVINA: 25 TREATMENT: FDC ADT FOR 28 MONTHS PLANNED. Radiotherapy: Treatment: Definitive radiation with Neoadjuvant/Concurrent/Adjuvant Androgen Deprivation. PROSTATE Plan Start Tx Last Tx Elapsed Days Fractions Dose (cGy) PTV1 Pelvis 01/14/2013 02/17/2013 34 25 / 25 @ 180.0 cGy 4500 / 4500 Energy Mode: 10X Treatment Type: Rapid Arc PTV3 Prostate 03/15/2013 03/19/2013 4 5 / @ 180.0 cGy 900 / 900 Energy [...] Biopsy 10/05/2012 Volume in cc 46 cc [place] grade/score a+b=c 4+5=9 Total Cores 13 biopsy [...] Negative. 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 Hot flashes--do not interfere with sleep--no change Some increase in fatigue No breast tenderness Able to do some logging this winter--cut his firewood HENT: Negative. Eyes: Negative. Respiratory: Negative. Negative [...] Hematological: Negative. Psychiatric/Behavioral: Negative. KPS: 100 Vitals Follow-Up from 07/28/2014 in Radiation Oncology Weight - Scale 70.988 kg (156 lb 8 oz) Temp 36.6 ??C (97.9 ??F) Temp Source Oral Heart Rate 63 Heart Rate Source Right, NIBP Resp 16 BP 142/82 mmHg BP Location Right arm Patient Position Sitting SpO2 98 % [...] motion. He exhibits no edema or tenderness. 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 Vitals reviewed. 01/11/2014 04/13/2014 WBC 4.3 4.54 RBC 4.69 4.45 HCT 41.3 39.0 HGB 14.4 13.5 PLAT 219 202 CA 9.0 BUN 12 CREAT 0.8 EGFR >60 T PROT 6.6 ALB 3.6 BILI T 0.42 ALK P 94 AST 26 ALT 23 NA 138 K 4.0 07/25/2014--CBC CMP reviewed --no concerns. Date PSA testosterone 07/25/2014 < 0.1 < 20 04/13/2014 < 0.1 15 01/11/2014 < 0.1 < 20 09/30/2013 <0.1 <20 06/24/2013 <0.03 09/28/2012 57.2 08/27/2012 93.30 Assessment: Allen Cerda is a very pleasant 69 y.o. year-old male with high risk [...] and side effects from remaining on ADT. He was again I recommended to start Vitamin D and calcium for bone health All questions were addressed. Plan: 1. Lupron 22.5 mg to be given today. 2. Next Lupron due in /july 21, 2014. Total planned time 28 months. 3. Labs/FU in [facility] in July 4. Recommended Vitamin D and calcium supplementation. 5. PSA, testosterone CBC, CMP in October 2014 Patient is to call if he has any questions or concerns. documented in this encounter Plan of Treatment Upcoming Encounters Date Type Department Care Team (Late st Contact Info) Description 04/15/2024 1:00 PM EST Office Visit Radiation Oncology at [address] [phone] Brenda Calvin PA [facility] DR HEMATOLOGY [place] [address] documented as of this encounter Visit Diagnoses Diagnosis Malignant neoplasm of prostate documented in this encounter Care Teams Machine Packager Relationship Specialty Start Date End Date Howard Rayo MD [facility] [address] [place] [address] PCP - General 08/28/12 08/19/16 documented as of this encounter
--- OUTSIDE RECORDS SUMMARY | 2024-04-09 13:58 | XMS_ITS | Encounter Summary ---
Author Organization [facility] [place] [address] Care Team Providers Care Cementer Machine Applicator Name Role Phone Howard Rayo MD Primary Care Provider [phone] Encounter Details Date Type Department Care Team (Late Contact Info) Description 11/17/2012 Orders [place] [address] Armani Bejarano MD Prostate cancer (Primary Dx) [...] EST Office Visit Radiation Oncology at [address] [phone] Brenda [place] PA [facility] DR HEMATOLOGY [place] [address] documented as of this encounter Results * MRI pelvis WO contrast (01/01/2013 11:57 AM EDT) Anatomical Region Laterality Modality Pelvis Magnetic Resonan ce 01/01/2013 11:5 7 AM EDT Narrative 01/01/2013 2:18 PM EDT Examination MR Pelvis WO Clinical History Radiation Planning protocol prostate cancer s/p ADT Comparison Prostate MRI on 10/20/2012 Technique MRI of the pelvis without contrast using the department prostate mri protocol. Findings Prostate: Size: 4.7 x 3.5 x 4.2 cm; ?? Volume 35cc There has been interval placement of bilateral prostate fiducial markers which lie laterally between margins between the central gland and peripheral zone. ?? Central Gland: Homogeneously isointense on T1 weighted images and mildly T2 hyperintense. Peripheral Zone: The peripheral zone shows interval decrease in thickness compared to the prior study. A T2 hypointense, T1 isointense nodule in the left peripheral gland by the apex shows interval decrease in size now measuring 10 mm and likely represents a resolving hematoma. A 9 x 16 x 10 mm markedly T2 hypointense focus is present in the left medial gland at the base. There is diffuse decreased signal intensity in the peripheral zone at the base of the gland. The previously reported hypoechoic focus in the right base is not well appreciated on the present study. Seminal vesicles: Normal. ?? Extracapsular extension: None present. ?? Neurovascular bundle: No evidence of invasion/encasement. Bladder: Normal. ?? Lymph nodes: Normal size. ?? Bones: No aggressive lesions. ?? Impression No seminal vesicle invasion, extracapsular extension, or neurovascular bundle involvement is present. Other findings as above. Film and interpretation reviewed by the attending Procedure Note Rafita Phillips MD - 01/01/2013 Examination MR Pelvis WO Clinical History Radiation Planning protocol prostate cancer s/p ADT Comparison Prostate MRI on 10/20/2012 Technique MRI of the pelvis without contrast using the department prostate mriprotocol. Findings Prostate: Size: 4.7 x 3.5 x 4.2 cm; Volume 35cc There has been interval placement of bilateral prostate fiducial markerswhich lie laterally between margins between the central gland and peripheralzone. Central Gland: Homogeneously isointense on T1 weighted images and mildlyT2 hyperintense. Peripheral Zone: The peripheral zone shows interval decrease in thickness compared to the prior study. A T2 hypointense, T1 isointense nodule in theleft peripheral gland by the apex shows interval decrease in size now [id number] mm and likely represents a resolving hematoma. A 9 x 16 x 10 mm markedlyT2 hypointense focus is present in the left medial gland at the base. Thereis diffuse decreased signal intensity in the peripheral zone at the base ofthe gland. The previously reported hypoechoic focus in the right base is notwell appreciated on the present study. Seminal vesicles: Normal. Extracapsular extension: None present. Neurovascular bundle: No evidence of invasion/encasement. Bladder: Normal. Lymph nodes: Normal size. Bones: No aggressive lesions. Impression No seminal vesicle invasion, extracapsular extension, or neurovascularbundle involvement is present. Other findings as above. Film and interpretation reviewed by the attending Armani Bejarano MD IMG MRI ORDERABLES documented in this encounter Visit Diagnoses Diagnosis Prostate cancer- Primary Malignant neoplasm of prostate Prostate cancer Malignant neoplasm of prostate documented in this encounter Care Teams Cementer Machine Applicator Relationship Specialty Start Date End Date Howard Rayo MD [facility] [address] [place] [address] PCP - General 08/28/12 08/19/16 documented as of this encounter
--- OUTSIDE RECORDS SUMMARY | 2024-04-09 13:58 | XMS_ITS | Encounter Summary ---
[facility] [place] [address] Care Team Providers Care Quick Sketch Artist Name Role Phone Howard Rayo MD Primary Care Provider Encounter Details Date Type Department Care Team (Late Contact Info) Description 09/23/2012 [place] [address] Titi Chong, RN Social History Tobacco Use Types Packs/Day Years [...] EST Office Visit Radiation Oncology at [address] [phone] Brenda [place] PA [facility] [place] [address] documented as of this encounter Visit Diagnoses Not on filedocumented in this encounter Care Teams Quick Sketch Artist Relationship Specialty Start Date End Date Howard Rayo MD [facility] [address] [place], [place] [address] PCP - General 08/28/12 08/19/16 documented as of this encounter
--- OUTSIDE RECORDS SUMMARY | 2024-04-09 13:58 | XMS_ITS | Encounter Summary ---
Author Organization [facility] [place] [address] Care Team Providers Care Flame Channeler Name Role Phone Howard Rayo MD Primary Care Provider [phone] Reason for Visit * Reason Comments Injections Encounter Details Date Type Department Care Team (Late Contact Info) Description 11/09/2012 9:30 AM EDT Office Visit Hematology Oncology at [address] [phone] CLIN[facility], DR MARTINEZ HEM/ONC Armani Bejarano MD Prostate cancer (Primary Dx) Discharge Disposition: Home Social History Tobacco Use Types Packs/Day Years Used Date Smoking Tobacco: Former Sex and Gender Information Value Date Recorded Sex Assigned at Not on file Gender Identity Not on file Sexual Orientation Not on file documented as of this encounter Progress Notes * Gina Zepeda RN - 11/09/2012 2:05 PM EDT Patient in for first lupron injection - given R buttock. No c/o's. Medication teaching done by SOL Catalan. documented in this encounter Plan of Treatment Upcoming Encounters Date Type Department Care Team (Late Contact Info) Description 04/15/2024 1:00 PM EST Office Visit Radiation Oncology at [address] [phone] Brenda [place] PA [facility] DR HEMATOLOGY [place] [address] documented as of this encounter Visit Diagnoses Diagnosis Prostate cancer- Primary Malignant neoplasm of prostate documented in this encounter Administered Medications Inactive Administered Medications - up to 3 most recent administrations Medication Order MAR Action Action Date Dose Rate Site leuprolide (LUPRON) injection 22.5 mg 22.5 mg, Intramuscular, ONCE, 1 dose, On Fri11/09/12 at 1045, Routine Given 11/09/2012 9:30 AM EDT 22.5 mg documented in this encounter Care Teams Flame Channeler Relationship Specialty Start Date End Date Howard Rayo MD [facility] [address] [place] [address] PCP - General 08/28/12 08/19/16 documented as of this encounter
--- OUTSIDE RECORDS SUMMARY | 2024-04-09 13:58 | XMS_ITS | Encounter Summary ---
[place] [address] Care Team Providers Care Frame Fixer Name Role Phone Howard Rayo MD Primary Care Provider [phone] Encounter Details Date Type Department Care Team (Latest Contact Info) Description 12/25/2012 11:00 AM EDT Procedure visit [place] [phone] Armani Bejarano MD Prostate cancer (Primary Dx) Discharge Disposition: Home Social History Tobacco Use Types Packs/Day Years Used Date Smoking Tobacco: Former Sex and Gender Information Value Date Recorded Sex Assigned at Not on file Gender Identity Not on file Sexual Orientation Not on file documented as of this encounter Last Filed Vital Signs Vital Sign Reading Time Taken Comments Blood Pressure 144/90 12/25/2012 10:24 AM EDT Pulse 86 12/25/2012 10:24 AM EDT Temperature 36.4 ??C (97.6 ??F) 12/25/2012 10:24 AM E DT Respiratory Rate 18 12/25/2012 10:24 AM EDT Oxygen Saturation 100% 12/25/2012 10:24 AM EDT Inhaled Oxygen Concentration - - Weight 68 kg (150 lb) 12/25/2012 10:24 AM EDT Height - - Body Mass Index 23.49 10/29/2012 10:25 AM EDT documented in this encounter Patient Instructions * Patient Instructions* Susan Leiva RN - 12/25/2012 10:56 AM EDT After Your procedure: ?? You may resume normal activity. Avoid riding on anything that bounces such as snowmobile, ATV, horse back riding or motorcycle riding for one week. ?? You may resume intercourse in one week. ?? You may take extra-strength Tylenol for any discomfort. Avoid NSAID's such as ibuprofen and aspirin for 48 hours after procedure as these medications could cause bleeding. ?? Start taking your dexamethasone. This medication helps to control swelling. ?? Finish your remaining antibiotic. ?? Call us if you notice any unusual swelling, pain, bleeding or if you have any other concerns. A Simulation appointment will be made a week or two after your gold coil procedure. Take a Fleets Enema the morning of your simulation and arrive for your appt with a comfortably full bladder. How to reach us: Friday - Friday 8 AM to 5 PM [phone] After Hours/Weekends- Please ask for the Radiation Oncologist to be paged documented in this encounter Progress Notes * Armani Bejarano MD - 12/25/2012 12:09 PM EDT Identification: Allen Cerda is a 67 y.o. 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 Procedure: Gold coil fiducial marker placement within the prostate Physician: Armani Bejarano MD, PhD Anesthesia: Local lidocaine with bicarbonate Description of Procedure: Allen Cerda was placed in the lithotomy position. A transrectal ultrasound probe was placed withinthe rectum and stabilized using the placement positioning system. The perineum was prepped, anesthetized with subcutaneous lidocaine, and draped with the graticule fixed in position on the ultrasoundstabilizer. A needle was then placed trans-perineally into the right lobe of the prostate under ultrasound guidance with the graticule serving for stabilization and position verification. The ultrasound was used to monitor the advancement of the needle, and lidocaine was locally applied as the needle was advanced. Once it was properly positioned, a 2.0 cm length of gold coil was placed within theright lobe, and the needle was removed. This procedure was repeated within the left prostate. Following placement of both coils, the ultrasound probe and the stabilizer system were removed. The patient was then discharged. Complications: None Estimated Blood Loss: Scant Disposition: Allen Cerda tolerated the treatment well. He described mild discomfort during the course of the procedure, at a level of 4 on a 10-point pain scale, primarily related to placement of the rectal probe, and also with needle insertion through the perineum. He will return shortly for CT-based simulation and treatment planning, with radiation therapy to proceed thereafter. documented in this encounter Plan of Treatment Upcoming Encounters Date Type Department Care Team (Late st Contact Info) Description 04/15/2024 1:00 PM EST Office Visit Radiation Oncology at [address] [phone] Brenda [place] PA [facility] DR HEMATOLOGY [place] [address] documented as of this encounter Visit Diagnoses Diagnosis Prostate cancer- Primary Malignant neoplasm of prostate documented in this encounter Care Teams Frame Fixer Relationship Specialty Start Date End Date Howard Rayo MD [facility] [address] [place] [address] PCP - General 08/28/12 08/19/16 documented as of this encounter
--- OUTSIDE RECORDS SUMMARY | 2024-04-09 13:58 | XMS_ITS | Encounter Summary ---
[place] [address] Care Team Providers Care Correspondence School Teacher Name Role Phone Howard Rayo MD Primary Care Provider Encounter Details Date Type Department Care Team (Late st Contact Info) Description 12/18/2012 Telephone [place] [address] Jayda Reyna, RN Social History Tobacco Use Types Packs/Day Years Used Date Smoking Tobacco: Former Sex and Gender Information Value Date Recorded Sex Assigned at Not on file Gender Identity Not on file Sexual Orientation Not on file documented as of this encounter Miscellaneous Notes * Telephone Encounter - Jayda Reyna RN - 12/18/2012 2:26 PM EDT Patient Teaching for Prostate Fiducials: Procedure and Preparation Procedure: ?? Rationale for fiducials: to olga the prostate and allow for tighter margins for RT boost. ?? Two small gold coils will be inserted through the perineum into the prostate gland using transrectal ultrasound for guidance. Local anesthetic will be used to numb the area, but the ultrasound probe may feel like uncomfortable pressure. Preparation: ?? A week before the coils are scheduled to be placed, anti-coagulants should be discontinued. You will need to get your doctor's permission to do this, if you are taking an anti-coagulant for a current heart condition or clotting disorder. ?? You will need to administer two Fleets enemas, one the night before and one the morning of the procedure. ?? You may have a normal breakfast and take your usual medications (minus the anticoagulants) the day of the procedure. ?? A prescription for an antibiotic to prevent infection will be given to you to start taking the day before your procedure. ?? A prescription for dexamethasone taper (2 mg BID x 3 days, then 2 mg QD x 3 days)will be given to you and you will start this the day of the procedure. See calendar. After the Procedure: ?? You will be allowed to drive yourself home, UNLESS you have taken something to help you relax. ?? A week or so after the procedure you will have an appointment for the planning session, called asimulation treatment. ?? All above reviewed with pt and questions answered. Patient questions and concerns: documented in this encounter Plan of Treatment Upcoming Encounters Date Type Department Care Team (Late st Contact Info) Description 04/15/2024 1:00 PM EST Office Visit Radiation Oncology at [address] [phone] Brenda [place] PA [facility] DR [place] [address] documented as of this encounter Visit Diagnoses Diagnosis Prostate cancer- Primary Malignant neoplasm of prostate documented in this encounter Care Teams Correspondence School Teacher Relationship Specialty Start Date End Date Howard Rayo MD [facility] [address] [place] [address] PCP - General 08/28/12 08/19/16 documented as of this encounter
--- OUTSIDE RECORDS SUMMARY | 2024-04-09 13:58 | XMS_ITS | Encounter Summary ---
Author Organization [facility] [place] [address] Care Team Providers Care Rivet Thrower Name Role Phone Howard Rayo MD Primary Care Provider [phone] Encounter Details Date Type Department Care Team (Late st Contact Info) Description 09/23/2012 [place] [address] Titi Chong, RN Elevated PSA (Primary Dx) Social History Tobacco Use Types [...] PM EST Office Visit Radiation Oncology at [address] [phone] Brenda [place] PA [facility] DR HEMATOLOGY [place] [address] documented as of this encounter Visit Diagnoses Diagnosis Elevated PSA- Primary Elevated prostate specific antigen (PSA) documented in this encounter Care Teams Rivet Thrower Relationship Specialty Start Date End Date Howard Rayo MD [facility] [address] [place] [address] PCP - General 08/28/12 08/19/16 documented as of this encounter
--- OUTSIDE RECORDS SUMMARY | 2024-04-09 13:58 | XMS_ITS | Encounter Summary ---
Author Organization [facility] [place] [address] Care Team Providers Care Multi Share Program Coordinator Name Role Phone Howard Rayo MD Primary Care Provider [phone] Encounter Details Date Type Department Care Team (Late Contact Info) Description 10/20/2012 3:24 PM EDT - 10/20/2012 11:59 PM EDT Hospital Encounter [place] [phone] Social History Tobacco Use Types Packs/Day Years Used Date Smoking Tobacco: Former Sex and Gender Information Value Date Recorded Sex Assigned at Not on file Gender Identity Not on file Sexual Orientation Not on file documented as of this encounter Medications at Time of Discharge Medication Sig Dispensed Refills Start Date End Date ibuprofen (ADVIL;MOTRIN) 200 mg tablet Take 400 mg by mouth 3 times daily. 10/29/2012 levofloxacin (LEVAQUIN) 500 mg tabletIndications:Elevat ed PSA,Prostate nodule Take one tablet by mouth 2 hr prior to procedure, then daily till gone. 3 tablet 0 09/22/2012 10/29/2012 documented as of this encounter Plan of Treatment Upcoming Encounters Date Type Department Care Team (Late st Contact Info) Description 04/15/2024 1:00 PM EST Office Visit Radiation Oncology at [address] [phone] Brenda [place] PA [facility] [address] [place] [address] documented as of this encounter Procedures Procedure Name Priority Date/Time Associated Diagnosis Comments NM BONE SCAN WHOLE BODY Routine 10/20/2012 3:53 PM EDT documented in this encounter Results * NM whole body bone scan (10/20/2012 3:53 PM EDT) Anatomical Region Laterality Modality Other 10/20/2012 3:53 PM EDT Narrative 10/20/2012 4:57 PM EDT Examination WHOLE BODY BONE SCAN Clinical History Prostate Cancer, [place] 9 ? poppy metastases Comparison None Technique Three hours following the intravenous administration of 24.7 mCi of technetium-99m MDP, images of the entire skeleton were obtained. Findings There is a small focus of increased activity in the left anterior superior iliac spine likely related to a stress injury. ?? No abnormal foci of activity are present to indicate metastases. ?? Impression No skeletal metastases. Film and interpretation reviewed by the attending Procedure Note Brad Dickey MD - 10/20/2012 Examination WHOLE BODY BONE SCAN Clinical History Prostate Cancer, [place] 9 ? poppy metastases Comparison None Technique Three hours following the intravenous administration of 24.7 mCi of technetium-99m MDP, images of the entire skeleton were obtained. Findings There is a small focus of increased activity in the left anterior superior iliac spine likely related to a stress injury. No abnormal foci of activity are present to indicate metastases. Impression No skeletal metastases. Film and interpretation reviewed by the attending Moses Pérez MD [facility] [place]LES documented in this encounter Visit Diagnoses Not on filedocumented in this encounter Care Teams Multi Share Program Coordinator Relationship Specialty Start Date End Date Howard Rayo MD [facility] [address] [place] [address] PCP - General 08/28/12 08/19/16 documented as of this encounter
--- OUTSIDE RECORDS SUMMARY | 2024-04-09 13:58 | XMS_ITS | Encounter Summary ---
[place] [address] Care Team Providers Care Stone Decorator Name Role Phone Howard Rayo MD Primary Care Provider [phone] Reason for Visit * Reason Comments Elevated PSA Encounter Details Date Type Department Care Team (Late st Contact Info) Description 09/22/2012 9:00 AM EDT Office [place] [address] Titi Burgos MD Elevated PSA (Primary Dx); Prostate nodule Discharge Disposition: Home Social History Tobacco Use Types Packs/Day Years Used Date Smoking Tobacco: Former Sex and Gender Information Value Date Recorded Sex Assigned at Not on file Gender Identity Not on file Sexual Orientation Not on file documented as of this encounter Last Filed Vital Signs Vital Sign Reading Time Taken Comments Blood Pressure - - Pulse - - Temperature - - Respiratory Rate 18 09/22/2012 8:47 AM EDT Oxygen Saturation - - Inhaled Oxygen Concentration - - Weight 69.4 kg (153 lb) 09/22/2012 8:47 AM EDT Height 170.2 cm (5' 7) 09/22/2012 8:47 AM EDT Body Mass Index 23.96 09/22/2012 8:47 AM EDT documented in this encounter Progress Notes * Titi Burgos MD - 09/22/2012 9:43 AM EDT CC: Elevated PSA and prostate nodule. HPI: This 67 Y/O man was found to have an elevated PSA at routine Physical Exam. He was also noted to have an abnormal CANDIS. He has no trouble voiding and has no family history of prostate ca. Had recent sever back pain and had an negative MRI. Placed on steroids and the pain got better. No history of hematuria, UTI's or stones. 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 Review of Systems Constitutional: Negative. HENT: Negative. Eyes: Negative. Respiratory: Negative. Cardiovascular: Negative. Gastrointestinal: Negative. Genitourinary: Negative. Musculoskeletal: Positive for back pain. Recent Sever back pain resolved on steroids. MRI apparently negative. Skin: Negative. Neurological: Negative. Hematological: Negative. Psychiatric/Behavioral: Negative. Physical Exam Constitutional: He is oriented to person, place, and time. He appears well- developed and well-nourished. HENT: Head: Normocephalic. Neck: Neck supple. Cardiovascular: Normal rate. Pulmonary/Chest: Effort normal. Abdominal: Soft. He exhibits no mass. There is no tenderness. There is no rebound and no guarding. Genitourinary: Rectum normal. No penile tenderness. Prostate is 2-3+ Nodular, malignant by exam. Musculoskeletal: Normal range of motion. Neurological: He is alert and oriented to person, place, and time. Skin: Skin is warm and dry. Psychiatric: His behavior is normal. Today's urine negative. Imp: Elevated PSA (98). Prostate nodular Plan: Prostate biopsy next. discussed with the patient and his . documented in this encounter Plan of Treatment Upcoming Encounters Date Type Department Care Team (Late st Contact Info) Description 04/15/2024 1:00 PM EST Office Visit Radiation Oncology at [address] [phone] Brenda [place] PA [facility] HEMATOLOGY [place] [address] Scheduled Orders Name Type Priority Associated Diagnoses Orde r Schedule Needle Bx, Prostate - Today PROCEDURE Routine Elevated PSA Prostate nodule Ordered: 09/22/2012 documented as of this encounter Visit Diagnoses Diagnosis Elevated PSA- Primary Elevated prostate specific antigen (PSA) Prostate nodule Nodular prostate without urinary obstruction documented in this encounter Care Teams Stone Decorator Relationship Specialty Start Date End Date Howard Rayo MD [facility] [address] [facility] [place] [address] PCP - General 08/28/12 08/19/16 documented as of this encounter
--- OUTSIDE RECORDS SUMMARY | 2024-04-09 13:58 | XMS_ITS | Encounter Summary ---
Author Organization [facility] [place] [address] Care Team Providers Care Catalyst Operator Name Role Phone Howard Salinas MD Primary Care Provider [phone] Reason for Visit * Reason Comments Radiation Treatment Encounter Details Date Type Department Care Team (Late st Contact Info) Description 03/19/2013 11:45 AM EST Office Visit Radiation Oncology at [address] [phone] Armani Bejarano MD Prostate cancer; Encounter for monitoring androgen deprivation therapy Social History Tobacco Use Types Packs/Day Years Used Date Smoking Tobacco: Former Smokeless Tobacco: Former Comments:quit smoking & chewing 20 yrs ago Alcohol Use Standard Drinks/Week Comments Yes 0 (1 standard drink = 0.6 oz pure alcohol) ocassional beer, usually in the summer Sex and Gender Information Value Date Recorded Sex Assigned at Not on file Gender Identity Not on file Sexual Orientation Not on file documented as of this encounter Progress Notes * Armani Bejarano MD - 04/24/2013 10:46 AM EST RADIATION COMPLETION OF THERAPY NOTE PROVIDER: Armani Bejarano MD, PhD REFERRING PROVIDER: BECCA Sandoval PRIMARY CARE PROVIDER: HOWARD SALINAS MD IDENTIFICATION: Allen Cerda is a 68 y.o. 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 Treatment: Definitive radiation with Neoadjuvant/Concurrent/Adjuvant Androgen Deprivation. [...] Rapid Arc PTV2 Prost_SV 02/18/2013 03/12/2013 22 14 @ 180.0 cGy 2520 / 2520 Energy Mode: 10X Treatment Type: Rapid Arc Total C1 PROSTATE dose: 7920.0 cGy Total Dose: 7920.0 cGy SPECIAL TECHNICAL CONSIDERATIONS: Allen Cerda was simulated on a CT simulator. Customized treatment chapa were designed to encompass the target volume and minimize normal tissue toxicity. IMRT and IGRT were utilized. TREATMENT TOLERANCE: Allen Cerda tolerated treatment with expected side effects of urinary irritation. He also had a flare of hemorrhoids. Allen Cerad knows to call this office or seek the help of the local emergency room if problems should arise. Follow-up visit to Radiation Oncology in 3 months with labs. [place] Due in April to be given at [facility] documented in this encounter Plan of Treatment Upcoming Encounters Date Type Department Care Team (Late st Contact Info) Description 04/15/2024 1:00 PM EST Office Visit Radiation Oncology at [address] [phone] Brenda Calvin PA [facility] [address] [place] [address] documented as of this encounter Results * PSA (06/24/2013 11:51 AM EDT) Prostate Specific Antigen (Ultrasensitiv e) <0.03 0.00 - 4.00 ng/mL [facility] Blood specimen (specimen) 06/24/2013 11:51 AM EDT 06/24/2013 11:58 AM EDT Narrative Resulting Agency Comment Spec In Lab Armani Bejarano MD CHEMISTRY ORDERABLES [facility] * (ABNORMAL) Testosterone, total (06/24/2013 11:51 AM EDT) Testosterone <0.03(L) 2.80 - 8.00 ng/mL [facility] Comment: Reference Ranges: ? Males (7to18 years) ?Females (8-18 years) Dawood Stage ?ng/ml ? ng/ml ? 1 ? <0.03 ? <0.03 to 0.06 ? 2 ? <0.03 to 4.32 ? <0.03 to 0.10 ? 3 ? 0.65 to 7.78 ?<0.03 to 0.24 ? 4 ? 1.80 to 7.63 ?<0.03 to 0.27 ? 5 ? 1.88 to 8.82 ?<0.05 to 0.38 ?Males 18 years to adult ? Females 18 years to adult ? 2.80 to 8.00 ng/ml ?0.06 to 0.82 ng/ml Stated adult reference ranges derived from review of John E170 Testosterone reagent package insert 02/09, V8 Stated pediatric reference ranges derived from review of John E170 Testosterone II reagent package insert 10/14, V2. Blood specimen (specimen) 06/24/2013 11:51 AM EDT 06/24/2013 11:58 AM EDT Narrative Resulting Agency Comment Spec In Lab Armani Bejarano MD CHEMISTRY ORDERABLES [facility] * (ABNORMAL) Comprehensive metabolic panel (non-fasting) (06/24/2013 11:51 AM EDT) Glucose 72 60 - 199 mg/dL [facility] Comment:Diabetes: >=200 mg/d L plus symptoms Blood Urea Nitrogen 13 10 - 20 mg/dL [facility] Creatinine 0.76(L) 0.80 - 1.50 mg/dL [facility] Comment: Please note that the pediatric reference intervals supplied above were not validated at [facility]. Results from pediatric patients should be interpreted in conjunction to the patient's age, height and muscle mass. Sodium 143 135 - 145 mmol/L [facility] Potassium 4.2 3.5 - 5.0 mmol/L [facility] Comment: Please note: ??Patients with WBC >100,000 may have falsely elevated Potassium levels. ??For accurate Potassium quantification in these patients send serum separator tube (gold top) for subsequent determinations. ??Contact the Clinical Chemistry Laboratory if there are any questions. Chloride 106 98 - 107 mmol/L [facility] Carbon Dioxide 28 22 - 31 mmol/L [facility] Anion Gap 9 5 - 15 mmol/L [facility] Calcium 9.5 8.5 - 10.5 mg/dL [facility] Protein, Total 6.8 6.4 - 8.3 gm/dL [facility] Albumin 4.3 3.2 - 5.2 gm/dL [facility] Aspartate Aminotransferase 22 0 - 39 unit/L [facility] Alanine Aminotransferase 15 0 - 55 unit/L [facility] Alkaline Phosphatase 62 40 - 120 unit/L [facility] Bilirubin, Total 0.4 0.2 - 1.3 mg/dL [facility] Bilirubin, Direct 0.1 0.0 - 0.3 mg/dL [facility] Est Glomerular Filtration Rate >60 >=60 [facility] Comment: This estimated GFR (eGFR) value was calculated using the MDRD equation which has been validated on patients between the ages of 18 and 70. The MDRD should not be used to assess kidney function in patients < 18 years of age or in patients with extremes of body mass, or in patients with acute kidney failure. This value should be multiplied by 1.2 for patients. For further information please copy and paste the following links into your internet browser. http://www.nkdep.nih.gov/lab-evaluation.shtml http://www.kidney.org/professionals/ Blood specimen (specimen) 06/24/2013 11:51 AM EDT 06/24/2013 11:58 AM EDT Narrative Resulting Agency Comment Spec In Lab Armani Bejarano MD CHEMISTRY ORDERABLES [facility] * (ABNORMAL) CBC (with Diff) (06/24/2013 11:51 AM EDT) White Blood Cell 4.6 4.0 - 10.0 x10(3)/mc L [facility] Red Blood Cell 4.60(L) 4.63 - 6.08 x10(6)/mc L [facility] Hemoglobin 14.1 13.7 - 17.5 gm/dL [facility] Hematocrit 40.7 40.0 - 51.0 % [facility] Mean Cell Volume 88.5 79.0 - 92.0 fL [facility] Mean Cell Hemoglobin 30.7 25.6 - 32.2 pg [facility] Mean Cell Hemoglobin Concentration 34.6 32.0 - 36.5 gm/dL [facility] Platelet 190 145 - 370 x10(3)/mc L [facility] RDW Standard Deviation 38.8 35.0 - 46.0 fL [facility] RDW coefficient of variation 12.1 10.9 - 14.4 % [facility] Mean Platelet Volume 10.0 9.0 - 12.0 fL [facility] Blood specimen (specimen) 06/24/2013 11:51 AM EDT 06/24/2013 11:58 AM EDT Narrative Resulting Agency Comment Spec In Lab Armani Bejarano MD HEMATOLOGY ORDERABLE [facility] documented in this encounter Visit Diagnoses Diagnosis Prostate cancer Malignant neoplasm of prostate Encounter for monitoring androgen deprivation therapy Encounter for therapeutic drug monitoring documented in this encounter Care Teams Catalyst Operator Relationship Specialty Start Date End Date Howard Salinas MD [facility] [address] [place] [address] PCP - General 08/28/12 08/19/16 documented as of this encounter
--- OUTSIDE RECORDS SUMMARY | 2024-04-09 13:58 | XMS_ITS | Encounter Summary ---
Author Organization [facility] [place] [address] Care Team Providers Care Pack Mule Worker Name Role Phone Howard Rayo MD Primary Care Provider [phone] Reason for Visit * Reason Comments On Treatment Visit Encounter Details Date Type Department Care Team (Late st Contact Info) Description 03/18/2013 1:00 PM EST Office Visit Radiation Oncology at [address] [phone] Keven Smith MD [address] [place] [address] [place] [address] Prostate cancer (Primary Dx) Discharge Disposition: Home Social History Tobacco Use Types Packs/Day Years Used Date Smoking Tobacco: Former Smokeless Tobacco: Former Comments:quit smoking 1979's & chewing 20 yrs ago Alcohol Use [...] Sign Reading Time Taken Comments Blood Pressure 132/84 03/18/2013 12:00 PM EST Pulse 58 03/18/2013 12:00 PM EST Temperature - - Respiratory Rate - - Oxygen Saturation - - Inhaled Oxygen Concentration - - Weight - - Height - - Body Mass Index - - documented in this encounter Progress Notes * Keven Smith MD - 03/18/2013 12:31 PM EST Patient ID: Allen Cerda is a 68 y.o. male currently undergoing definitive radiotherapy for high risk prostate cancer. Plan Details: Daily Dose: 1.8 Gy Current Dose: 77.4 Gy in 43 fractions Planned Dose: 79.2 Gy in 44 fractions Subjective / Interval History:: Worsening hemmhorhoids over the weekend although improved with conservative management. Stable nocturia 1-3/nt. No diarrhea. Pain Assessment: The patient reports a pain score of 3/10 LBP, relieved with ibuprofen. Objective: BP 132/84 Pulse 58 General - appears well, no distress Portal Imaging Review: Offline portal imaging is being reviewed by Dr. Bejarano to confirm accurate positioning and alignmentwhich matches the patient's original approved treatment planning images. Assessment: Tolerating therapy as expected. Plan: Continue therapy as prescribed. Finishes XRT tomorrow. Knows to stop casodex. F/u per Dr. Bejarano's office. documented in this encounter Plan of Treatment Upcoming Encounters Date Type Department Care Team (Late st Contact Info) Description 04/15/2024 1:00 PM EST Office Visit Radiation Oncology at [address] [phone] Bernda Calvin PA [facility] [address] [place] [address] documented as of this encounter Visit Diagnoses Diagnosis Prostate cancer- Primary Malignant neoplasm of prostate documented in this encounter Care Teams Pack Mule Worker Relationship Specialty Start Date End Date Howard Rayo MD [facility] [address] [place] [address] PCP - General 08/28/12 08/19/16 documented as of this encounter
--- OUTSIDE RECORDS SUMMARY | 2024-04-09 13:58 | XMS_ITS | Encounter Summary ---
Author Organization [facility] [place] [address] Care Team Providers Care Correctional Therapy Director Name Role Phone Howard Salinas MD Primary Care Provider Reason for Visit * Reason Onset Date Comments Elevated PSA Elevated PSA 10/05/2012 Encounter Details Date Type Department Care Team (Latest Contact Info) Description 10/05/2012 8:00 AM EDT Initial consult [place] [address] Yarelis Castillo MD [facility] [place] [address] Elevated prostate specific antigen (PSA) (Primary Dx) Discharge Disposition: Home Social History Tobacco Use Types Packs/Day Years Used Date Smoking Tobacco: Former Sex and Gender Information Value Date Recorded Sex Assigned at Not on file Gender Identity Not on file Sexual Orientation Not on file documented as of this encounter Last Filed Vital Signs Vital Sign Reading Time Taken Comments Blood Pressure 156/95 10/05/2012 8:06 AM EDT Pulse 82 10/05/2012 8:06 AM EDT Temperature - - Respiratory Rate 22 10/05/2012 8:06 AM EDT Oxygen Saturation - - Inhaled Oxygen Concentration - - Weight 68.9 kg (152 lb) 10/05/2012 8:06 AM EDT Height 170 cm (5' 6.93) 10/05/2012 8:06 AM EDT Body Mass Index 23.86 10/05/2012 8:06 AM EDT documented in this encounter Patient Instructions * Patient Instructions* Yarelis Castillo MD - 10/05/2012 8:32 AM EDT You will receive a phone call with your biopsy results early next week. documented in this encounter Progress Notes * Titi Chong RN - 10/05/2012 12:39 PM EDT Post Prostate Biopsy Procedure Teaching done using the Prostate Biopsy Discharge Information Sheet (given to patient along with sanitary pads). Patient stated he understood the discharge information,phone numbers to call with any concerns regarding excessive bleeding or signs or symptoms of infection. Patient voiced no complaints and left the unit in a stable condition. * Yarelis Castillo MD - 10/05/2012 8:14 AM EDT Patient Name: Date of Service: 10/05/2012 Primary Care Provider: HOWARD SALINAS MD Reason for Visit: Allen Cancino is a 67 y.o. male who is referred by Dr Burgos for a prostate biopsy. Patient had a PSA as part of a routine physical 08/27/2012 PSA 98 09/28/2012: PSA 57.2 Currently he voids well. He gets up 1 x at night. Stream POK. No blood. Erections OK Appetite good, Weight stable, No bone pain. He has back pain since 08/20 after shovelling a dump truck of manure. Pain is better now. PMhx None PShx Appendectomy as a child Vasectomy Examination: Looks well, No adenopathy Labs: 10/05/2012: U/A Negative X-rays: None Impression: Elevated PSA/Nodular prostate Plan: TRUS and prostate Bx. Rationale and risks discussed. No increased risk factors for sepsis Yarelis Castillo Procedure Note Procedure: Transrectal ultrasound and prostate biopsy Surgeon: Yarelis Nguyen Preoperative Diagnosis: Abnormal PSA/Free PSA Abnormal Rectal Exam Post Operative Diagnosis: Successful Biopsy Complications: None Procedure: A time out procedure was performed. It was confirmed the patient had a urinanalysis that did not show evidence of a urinary infection prior to the biopsy. It was confirmed that the patient took Levaquin 500mg po ~ 1 hour ago. Rectal 40 grams. Large nodule left prostate. The TRUS probe was inserted into the rectum and the prostate imaged in the sagittal and transverse dimensions. Prostate volume was 46cc. The prostate was homogeneous. Prostate calcifications were observed at the junction of the peripheral and transition zones. Hypochoic areas:2.5cm Left Rectum, periprostatic structures, visualized areas of the bladder, vas deferens and seminal vesicles all appeared normal Prostatic anaesthesia was achieved in the standard fashion. A series of prostatic biopsies were obtained from the lateral apex, mid,and base as well as mid sagittal apex, mid and base. Biopsies were obtained from both the right and left side of the prostate. Additional biopsies:Left nodule x2 A total of 14 biopsies were obtained. The patient tolerated the procedure without difficulty. I will contact him in about a weeks time with the results. He understands that if he does not hear from me or has any problems to contact my office. Yarelis Castillo documented in this encounter Plan of Treatment Upcoming Encounters Date Type Department Care Team (Late st Contact Info) Description 04/15/2024 1:00 PM EST Office Visit Radiation Oncology at [address] [address] Brenda Calvin PA [facility] DR HEMATOLOGY [place] [address] documented as of this encounter Procedures Procedure Name Priority Date/Time Associated Diagnosis Comments US GUIDED BIOPSY PROSTATE ([place] ONLY) Routine 10/05/2012 9:04 AM EDT Elevated prostate specific antigen (PSA) SURGICAL PATHOLOGY REPORT Routine 10/05/2012 9:00 AM EDT documented in this encounter Results * US guided transrectal biopsy (10/05/2012 9:04 AM EDT) Anatomical Region Laterality Modality Pelvis Ultrasound 10/05/2012 9:04 AM EDT Narrative 10/05/2012 10:09 AM EDT ?Male Pelvis ? (Signed Final 10/05/2012 10:08 am) Patient Info ID: ?[id number] ?: ??[birth year] (67 yrs) Name: ?ALLEN LYMANULD ? Visit Date: 10/05/2012 08:40 am Performed By Performed By: ?Bernardo Medrano RDMS Attending: ? Asha COTTON, Radha Taveras Referred By: ? YARELIS CASTILLO MD Service(s) Provided UTRBX - Ultrasound - Prostate Biopsy - ?[id number], [id number], [id number] Indications elevated PSA Technique/Scan Quality Technique: ?Transducer #12 -------- Prostate -------- Size (cm) ?L: ??4.42 ?AP: ??3.6 ? TV: ??5.53 Vol (ml): ?46.1 Comment: ?Hypoechoic area seen: Left mid approximately 2.4 ? cm ? Measured small hypoechoic area in the right mid is ? not felt to represent a nodule, probable ? neurovascular bundle. Impression Ultrasound - Prostate Ultrasound - Summary Transrectal ultrasound of the prostate gland was performed. Hypoechoic area seen: Left mid Ultrasound - Prostate Biopsy - Summary Ultrasound guidance was provided for Dr. Castillo of the section of Urology who performed a total of 14 biopsies of the prostate gland, ??6 of the right lobe and 8 of the left lobe, at [facility] clinic location. I ??viewed the images and agree with the above interpretation. Thank you for allowing us to participate in the care of ALLEN CANCINO. Please do not hesitate to call if you have any questions. ? Radha Barry MD Electronically Signed Final Report ?? 10/05/2012 10:08 am Procedure Note Radha Barry MD - 10/05/2012 Male Pelvis (Signed Final 10/05/2012 10:08 am) Patient Info ID: [id number] : [birth year] (67 yrs) Name: ALLEN CANCINO Visit Date: 10/05/2012 08:40 am Performed By Performed By: Bernardo Medrano RDMS Attending: Radha Barry MD Referred By: YARELIS CASTILLO MD Service(s) Provided UTRBX - Ultrasound - Prostate Biopsy - [id number], [id number], [id number] Indications elevated PSA Technique/Scan Quality Technique: Transducer #12 -------- Prostate -------- Size (cm) L: 4.42 AP: 3.6 TV: 5.53 Vol (ml): 46.1 Comment: Hypoechoic area seen: Left mid approximately 2.4 cm Measured small hypoechoic area in the right mid is not felt to represent a nodule, probable neurovascular bundle. Impression Ultrasound - Prostate Ultrasound - Summary Transrectal ultrasound of the prostate gland was performed. Hypoechoic area seen: Left mid Ultrasound - Prostate Biopsy - Summary Ultrasound guidance was provided for Dr. Castillo of the section of Urology who performed a total of 14 biopsies of the prostate gland, 6 of the right lobe and 8 of the left lobe, at clinic location. I viewed the images and agree with the above interpretation. Thank you for allowing us to participate in the care of ALLEN CANCINO. Please do not hesitate to call if you have any questions. Radha Barry MD Electronically Signed Final Report 10/05/2012 10:08 am Yarelis Castillo MD IMG US PROC ORDERABL ES * Surgical Pathology Report (10/05/2012 9:00 AM EDT) Surgical Pathology Report ? [facility] ? Provider: ?? YARELIS CASTILLO ?Pt. Name: ?? ALLEN CANCINO ? Acc #: ?[id number] ?Pt. ? Col Date: ?? 10/05/2012 ?/Sex: ?1945,(67 years),Male ? Rec Date: ?? 10/05/2012 ?LOC: ?3K ? SURGICAL PATHOLOGY ? ---Pathologic Diagnosis--- ? A - Prostatic core needle biopsy, right base: ? Benign prostatic tissue. ? B - Prostatic core needle biopsy, right mid: ? Benign fibromuscular tissue. ? C - Prostatic core needle biopsy, right apex: ? Benign prostatic tissue. ? D - Prostatic core needle biopsy, right lateral base: ? Benign prostatic tissue. ? E - Prostatic core needle biopsy, right lateral mid: ? Benign prostatic tissue. ? F - Prostatic core needle biopsy, right lateral apex: ? Benign prostatic tissue. ? G - Prostatic core needle biopsy, left base: ? Adenocarcinoma, Donny grade 4 + 3, involving approximately ? 50% of the single biopsy core. ? H - Prostatic core needle biopsy, left mid: ? 1. ??Adenocarcinoma, Donny grade 4 + 3, involving ? approximately 60% of the fragmented needle biopsy core. ? 2. ??Perineural invasion is present. ? I - Prostatic core needle biopsy, left apex: ? 1. ??Adenocarcinoma, Ringgold grade 3 + 4, involving ? approximately 10% of the single biopsy core. ? 2. ??Perineural invasion is present. ? J - Prostatic core needle biopsy, left lateral base: ? 1. ??Adenocarcinoma, Donny grade 4 + 5, involving ? approximately 70% of the single biopsy core (see ? Comment). ? 2. ??Focus of intraluminal cancer, suspicious for lymphatic ? invasion. ? K - Prostatic core needle biopsy, left lateral mid: ? Adenocarcinoma, Donny grade 4 + 4, involving approximately ? 25% of the single biopsy core. ? [facility] ? Provider: ?? YARELIS CASTILLO ?Pt. Name: ?? ALLEN CANCINO ? Acc #: ?[id number] ?Pt. ? Col Date: ?? 10/05/2012 ?/Sex: ?1945,(67 years),Male ? Rec Date: ?? 10/05/2012 ?LOC: ?3K ? SURGICAL PATHOLOGY ? L - Prostatic core needle biopsy, left lateral apex: ? Adenocarcinoma, Ringgold grade 3 + 3, involving less than 5% ? of the single biopsy core. ? M - Prostatic core needle biopsy, left nodule x 2: ? Adenocarcinoma, Donny grade 4 + 4, involving approximately ? 60% of the multiple needle biopsy core fragments. ? CR-0 ? 10/06/12 ? VMS ? 10/06/12 Verified by: ? Brad Yates MD ? Pathologist ? (Electronic Signature) ? The attending pathologist whose signature appears on this report has ? reviewed all diagnostic slides and has edited the gross and/or ? microscopic portion of the report in rendering the final pathologic ? diagnosis. ? ---Comment--- ? In biopsy J, foci of comedo type necrosis are present within large ragged ? masses of fused glands, consistent with areas of secondary Ringgold 5 ? pattern. ? ---Gross Description--- ? A - Labeled/Fixative: Right base prostate, formalin. ? Qty/Size: Single irene-white needle core biopsy, 1.8 x 0.1 cm. ? Sections/Processi ng: ??(T1) ? B - Labeled/Fixative: Right mid prostate, formalin. ? Qty/Size: Single irene-white needle core biopsy, 0.4 x 0.1 cm. ? Sections/Processi ng: ??(T1) ? C - Labeled/Fixative: Right apex prostate, formalin. ? Qty/Size: Single irene-white needle core biopsy, 0.6 x 0.1 cm. ? Sections/Processi ng: ??(T1) ? D - Labeled/Fixative: Right lateral base prostate, formalin. ? Qty/Size: Single irene-white needle core biopsy, 0.4 x 0.1 cm. ? Sections/Processi ng: ??(T1) ? E - Labeled/Fixative: Right lateral mid prostate, formalin. ? [facility] ? Provider: ?? YARELIS CASTILLO ?Pt. Name: ?? ALLEN CANCINO ? Acc #: ?[id number] ?Pt. ? Col Date: ?? 10/05/2012 ?/Sex: ?1945,(67 years),Male ? Rec Date: ?? 10/05/2012 ?LOC: ?3K ? SURGICAL PATHOLOGY ? Qty/Size: Single irene-white needle core biopsy, 1.0 x 0.1 cm. ? Sections/Processi ng: ??(T1) ? F - Labeled/Fixative: Right lateral apex prostate, formalin. ? Qty/Size: Single irene-white needle core biopsy, 0.5 x 0.1 cm. ? Sections/Processi ng: ??(T1) ? G - Labeled/Fixative: Left base prostate, formalin. ? Qty/Size: Single irene-white needle core biopsy, 1.5 x 0.1 cm. ? Sections/Processi ng: ??(T1) ? H - Labeled/Fixative: Left mid prostate, formalin. ? Qty/Size: Two irene-white needle core biopsies, averaging 0.9 x 0.1 cm. ? Sections/Processi ng: ??(T1) ? I - Labeled/Fixative: Left apex prostate, formalin. ? Qty/Size: Single irene-white needle core biopsy, 1.3 x 0.1 cm. ? Sections/Processi ng: ??(T1) ? J - Labeled/Fixative: Left lateral base prostate, formalin. ? Qty/Size: Single irene-white needle core biopsy, 1.2 x 0.1 cm. ? Sections/Processi ng: ??(T1) ? K - Labeled/Fixative: Left lateral mid prostate, formalin. ? Qty/Size: Single irene-white needle core biopsy, 1.5 x 0.1 cm. ? Sections/Processi ng: ??(T1) ? L - Labeled/Fixative: Left lateral apex prostate, formalin. ? Qty/Size: Single irene-white needle core biopsy, 0.8 x 0.1 cm. ? Sections/Processi ng: ??(T1) ? M - Labeled/Fixative: LN x2, formalin. ? Qty/Size: Multiple irene-white needle core biopsies, averaging 0.4 x 0.1 cm. ? Sections/Processi ng: ??(T1) ??ejr ? ---Clinical Information--- ? Specimen Submitted: ? A - Right base ? B - Right mid ? C - Right apex ? D - Right lateral base ? E - Right lateral mid ? F - Right lateral apex ? G - Left base ? [facility] ? Provider: ?? YARELIS CASTILLO ?Pt. Name: ?? ALLEN CANCINO ? Acc #: ?[id number] ?Pt. ? Col Date: ?? 10/05/2012 ?/Sex: ?1945,(67 years),Male ? Rec Date: ?? 10/05/2012 ?LOC: ?3K ? SURGICAL PATHOLOGY ? H - Left mid ? I - Left apex ? J - Left lateral base ? K - Left lateral mid ? L - Left lateral apex ? M - LN x 2 ? Clinical History: ? Elevated PSA, abnormal CANDIS ? Clinical Diagnosis: ? Same LUIS LOPEZIUM 10/05/2012 9:00 AM EDT Yarelis Castillo MD PATHOLOGY/CYTOLOGY O RDERABLES LUIS SEXTON documented in this encounter Visit Diagnoses Diagnosis Elevated prostate specific antigen (PSA)- Primary documented in this encounter Care Teams Correctional Therapy Director Relationship Specialty Start Date End Date Howard Salinas MD [facility] [address] [place] [address] PCP - General 08/28/12 08/19/16 documented as of this encounter
--- OUTSIDE RECORDS SUMMARY | 2024-04-09 13:58 | XMS_ITS | Encounter Summary ---
Author Organization [facility] [place] [address] Care Team Providers Care Research Director Name Role Phone Howard Rayo MD Primary Care Provider [phone] Encounter Details Date Type Department Care Team (Late Contact Info) Description 01/01/2013 Orders Only [place] [address] Brad Short MD Social History Tobacco Use Types Packs/Day Years [...] PM EST Office Visit Radiation Oncology at [address] [phone] Brenda Calvin PA [facility] [address] [place] [address] documented as of this encounter Procedures Procedure Name Priority Date/Time Associated Diagnosis Comments FILM LIBRARY STORAGE ONLY RADIATION ONCOLOGY STUDIES Routine 01/01/2013 9:20 AM EDT documented in this encounter Results * Film Library- Storage Only Radiation Oncology Studies (01/01/2013 9:20 AM EDT) 01/01/2013 9:20 AM EDT Narrative RAD - 11/29/2013 11:04 PM EDT This is a non-reportable exam. Procedure Note [place]ano Marcos - 11/29/2013 This is a non-reportable exam. Brad Short MD IM FILM LIBRARY ORD ERABLES [facility] [address] [place] [address] documented in this encounter Visit Diagnoses Not on filedocumented in this encounter Care Teams Research Director Relationship Specialty Start Date End Date Howard Rayo MD [facility] [address] [place] [address] PCP - General 08/28/12 08/19/16 documented as of this encounter
--- OUTSIDE RECORDS SUMMARY | 2024-04-09 13:58 | XMS_ITS | Encounter Summary ---
Author Organization [facility] [place] [address] Care Team Providers Care Salon Receptionist Name Role Phone Howard Rayo MD Primary Care Provider Encounter Details Date Type Department Care Team (Late st Contact Info) Description 03/19/2013 Notes Only Radiation Oncology at [address] [phone] Teena Gaston RN Social History Tobacco Use Types Packs/Day [...] as of this encounter Progress Notes * Teena Andres RN - 03/19/2013 12:47 PM EST Radiation Oncology Nursing Completion of Treatment Note Pt completed 44 Fxs totaling 7920 cGY to pelvis for prostate ca. . Side effects/problems noted today: He states that he has no complaints or any changes since seeing Dr Smith yesterday for weekly visit. He vocalizes delight that he has completed his treatments andexpresses appreciation for his experience here. Teaching and discharge instructions reviewed:He was instructed to call clinic if he develops any symptoms or side effects that are not easily managed, such as pain or bleeding with BM's, diarrhea, burning on urination, etc. Expected follow up/referrals: follow-up with radiation oncologist is to be determined. Patient has our contact numbers : [phone] -weekday business hours [phone]- weekends, ask for radiation oncologist ruby on rails developer Patient/family response to instructions: Patient verbalized understanding of these instructions. documented in this encounter Plan of Treatment Upcoming Encounters Date Type Department Care Team (Late st Contact Info) Description 04/15/2024 1:00 PM EST Office Visit Radiation Oncology at [address] [phone] Brenda Calvin PA [facility] DR HEMATOLOGY [place] [address] documented as of this encounter Visit Diagnoses Not on filedocumented in this encounter Care Teams Salon Receptionist Relationship Specialty Start Date End Date Howard Rayo MD [facility] [address] [place] [address] PCP - General 08/28/12 08/19/16 documented as of this encounter
--- OUTSIDE RECORDS SUMMARY | 2024-04-09 13:58 | XMS_ITS | Encounter Summary ---
Author Organization [facility] [place] [address] Care Team Providers Care Paper Processing Machine Helper Name Role Phone Howard Rayo MD Primary Care Provider Reason for Visit * Reason Comments On Treatment Visit Encounter Details Date Type Department Care Team (Late st Contact Info) Description 02/03/2013 1:00 PM EDT Office Visit Radiation Oncology at [address] [phone] Keven Smith MD [address] [place] [address] [place] [address] Prostate cancer (Primary Dx) Discharge [...] Sign Reading Time Taken Comments Blood Pressure 125/80 02/03/2013 12:00 PM EDT Pulse 70 02/03/2013 12:00 PM EDT Temperature - - Respiratory Rate - - Oxygen Saturation 97% 02/03/2013 12:00 PM EDT Inhaled Oxygen Concentration - - Weight - - Height - - Body Mass Index - - documented in this encounter Progress Notes * Keven Smith MD - 02/03/2013 12:59 PM EDT ON TREATMENT VISIT NOTE Identification: Allen Cerda is a 68 y.o. year old gentleman with high risk prostate cancer, T2a, Harmon 4+5=9, PSA 57.2. Current Treatment Dose: 2700cGy Anticipated Total Dose: 7920cGy Current number of RT Tx Received: 15 Anticipated total number of RT Treatments: 44 Concomitant Therapy: Total Androgen Blockade Evaluation of Verification Imaging: Approved by Dr. Bejarano: For details, see record in [facility]. Changes in Medical Condition: Doing well. Chronic LBP is bothering him more this week. Lupron 22.5 given 02/01, more fatigue and hot flashes since then. Nocturia at baseline was 1-2X, still at 3-4X. No hematuria or dysuria. Loose stools more frequent this week, up to 4 soft BM/day. Not watery, no blood. Not taking immodium. Pain management: No pain Physical Examination: Filed Vitals: 02/03/13 1200 BP: 125/80 Pulse: 70 SpO2: 97% Well appearing, NAD. Assessment: Stable increased nocturia and now incr BM frequency. Otherwise tolerating treatment as expected. Plan: 1. Continue ADT / XRT as prescribed by Dr. Bejarano (Lupron 22.5 mg given 02/01). 2. He is now considering NSAIDs for nocturia as he also has chronic LBP. Recommended 600 mg ibuprofen or 1 aleve in the evenings, on a full stomach. 3. Still not interested in Flomax or Imodium. documented in this encounter Plan of Treatment Upcoming Encounters Date Type Department Care Team (Late st Contact Info) Description 04/15/2024 1:00 PM EST Office Visit Radiation Oncology at [address] [phone] Brenda Calvin PA [facility] HEMATOLOGY [place] [address] documented as of this encounter Visit Diagnoses Diagnosis Prostate cancer- Primary Malignant neoplasm of prostate documented in this encounter Care Teams Paper Processing Machine Helper Relationship Specialty Start Date End Date Howard Rayo MD [facility] [address] [place] [address] PCP - General 08/28/12 08/19/16 documented as of this encounter
--- OUTSIDE RECORDS SUMMARY | 2024-04-09 13:58 | XMS_ITS | Encounter Summary ---
Author Organization [facility] [place] [address] Care Team Providers Care Lithograph Press Operator Tinware Name Role Phone Howard Rayo MD Primary Care Provider [phone] Encounter Details Date Type Department Care Team (Late Contact Info) Description 10/20/2012 12:42 PM EDT - 10/20/2012 3:23 PM EDT Hospital En[place] [phone] Social History Tobacco Use Types Packs/Day Years [...] PM EST Office Visit Radiation Oncology at [address] [phone] Brenda Calvin PA [facility] [place] [address] documented as of this encounter Visit Diagnoses Not on filedocumented in this encounter Care Teams Lithograph Press Operator Tinware Relationship Specialty Start Date End Date Howard Rayo MD [facility] [address] [place] [address] PCP - General 08/28/12 08/19/16 documented as of this encounter
--- OUTSIDE RECORDS SUMMARY | 2024-04-09 13:58 | XMS_ITS | Encounter Summary ---
Author Organization [facility] [place] [address] Care Team Providers Care Arc Furnace Operator Name Role Phone Howard Rayo MD Primary Care Provider Reason for Visit * Reason Comments On Treatment Visit Encounter Details Date Type Department Care Team (Late st Contact Info) Description 01/14/2013 1:30 PM EDT Office Visit Radiation Oncology at [address] [phone] Keven Smith MD [address] [place] [address] [place] [address] Cancer of prostate with high recurrence risk (stage T3a or [place] 8-10 or PSA > 20) (Primary Dx) Discharge Disposition: Home Social History Tobacco Use Types Packs/Day Years Used Date Smoking Tobacco: Former Sex and Gender Information Value Date Recorded Sex Assigned at Not on file Gender Identity Not on file Sexual Orientation Not on file documented as of this encounter Last Filed Vital Signs Vital Sign Reading Time Taken Comments Blood Pressure 142/86 01/14/2013 2:00 PM EDT Pulse 50 01/14/2013 2:00 PM EDT Temperature - - Respiratory Rate - - Oxygen Saturation 100% 01/14/2013 2:00 PM EDT Inhaled Oxygen Concentration - - Weight - - Height - - Body Mass Index - - documented in this encounter Progress Notes * Keven Smith MD - 01/14/2013 2:25 PM EDT Patient ID: Allen Cerda is a 68 y.o. male currently undergoing definitive radiotherapy for high risk prostate cancer (T2a, Gl 4+5, PSA 57.2). Plan Details: Daily Dose: 1.8 Gy Current Dose: 1.8 Gy Planned Dose: 79.2 Gy Subjective / Interval History:: No changes since last visit. Started RT today. Nocturia x 2/night. No dysuria. No bowel changes. Pain Assessment: The patient reports a pain score of 0/10. Objective: Filed Vitals: 01/14/13 1400 BP: 142/86 Pulse: 50 General - no distress, appears well Portal Imaging Review: Offline portal imaging review to confirm accurate positioning and alignment which matches the patient's original approved treatment planning images is being conducted by Dr. Bejarano. Assessment: Tolerating therapy as expected. Plan: Continue therapy as prescribed by Dr. Bejarano Teaching provided by Teena Andres RN today. documented in this encounter Plan of Treatment Upcoming Encounters Date Type Department Care Team (Late st Contact Info) Description 04/15/2024 1:00 PM EST Office Visit Radiation Oncology at [address] [phone] Brenda Calvin PA [facility] DR [place] [address] documented as of this encounter Visit Diagnoses Diagnosis Cancer of prostate with high recurrence risk (stage T3a or Donny 8-10 or PSA > 20)- Primary Malignant neoplasm of prostate documented in this encounter Care Teams Arc Furnace Operator Relationship Specialty Start Date End Date Howard Rayo MD [facility] [address] [place] [address] PCP - General 08/28/12 08/19/16 documented as of this encounter
--- OUTSIDE RECORDS SUMMARY | 2024-04-09 13:58 | XMS_ITS | Encounter Summary ---
Author Organization [facility] [place] [address] Care Team Providers Care Windows Application Developer Name Role Phone Howard Ryao MD Primary Care Provider [phone] Encounter Details Date Type Department Care Team (Late Contact Info) Description 12/25/2012 10:30 AM EDT Follow-[place] [address] NURSE, RADIATION ONCOLOGY RAD[facility]ATION ONCOLOGY [facility] Discharge Disposition: Home Social History Tobacco Use [...] PM EST Office Visit Radiation Oncology at [address] [phone] Brenda Calvin PA [facility] DR HEMATOLOGY [place] [address] documented as of this encounter Visit Diagnoses Not on filedocumented in this encounter Care Teams Windows Application Developer Relationship Specialty Start Date End Date Howard Rayo MD [facility] [address] [place] [address] PCP - General 08/28/12 08/19/16 documented as of this encounter
--- OUTSIDE RECORDS SUMMARY | 2024-04-09 13:58 | XMS_ITS | Encounter Summary ---
Author Organization Counts Include [facility] Address [facility] [place] [address] Care Team Providers Care Air Pollution Auditor Name Role Phone Howard Rayo MD Primary Care Provider [phone] Encounter Details Date Type Department Care Team (Latest Contact Info) Description 10/20/2012 12:42 PM EDT - 10/20/2012 11:59 PM EDT Hospital [place] [address] CLINIC, Moses Pederson MD [facility] [place] [address] Prostate cancer Discharge Disposition: Home Social History [...] 09/22/2012 10/29/2012 documented as of this encounter Miscellaneous Notes * Miscellaneous - Provider, Scanning - 10/26/2012 8:17 AM EDT documented in this encounter Plan of Treatment Upcoming Encounters Date Type Department Care Team (Late st Contact Info) Description 04/15/2024 1:00 PM EST Office Visit Radiation Oncology at [address] [phone] Brenda Calvin PA [facility] DR HEMATOLOG[place] [address] documented as of this encounter Procedures Procedure Name Priority Date/Time Associated Diagnosis Comments MRI PELVIS SOFT TISSUE (GI POULTRY BONER) WO CONTRAST Routine 10/20/2012 6:21 PM EDT Malignant neoplasm of prostate documented in this encounter Results * MRI pelvis WO contrast (10/20/2012 6:21 PM EDT) Anatomical Region Laterality Modality Pelvis Magnetic Resonan ce 10/20/2012 6:21 PM EDT Narrative 10/21/2012 10:16 AM EDT Examination MR Pelvis WO Clinical History Stage prostate cancer [place] 9 Comparison None. Technique Non contrast enhanced MRI the prostate. ?? Findings Mildly heterogeneous bone marrow signal throughout the visualized pelvis without focal marrow replacement. ??No pelvic lymphadenopathy. The prostate gland is enlarged, measuring 5.4 cm x 5.1 cm x 4.0 cm. ??The gland is diffusely heterogeneous in signal intensity. ??On T1 weighted images, there are multi focal regions of hyperintensity which are likely post biopsy hemorrhage. In the mid to inferior left prostate there is a focal, circumscribed, 2 cm nodule which is T1 hypointense and T2 hypointense. ??In the right prostate at and just above this level, there are heterogeneous and poorly defined regions of low signal intensity on T2 weighted images. ??These are suspicious for neoplasm. ??Significant hypertrophy of the central zone is also noted consistent with pre-existing BPH. The seminal vesicles are normal in morphology and signal intensity without involvement. ??There are no MR findings to suggest extracapsular extension. ??No keily-prostatic deep pelvic nodes are identified. Rectum unremarkable in appearance. Impression ? 1. Markedly enlarged heterogeneous prostate with pre-existing benign prostatic hypertrophy. ??In addition, there are low signal intensity foci on T2 images within the peripheral zone consistent with/concerning for prostate cancer. One is quite circumscribed and measures 2 cm. ??No MR findings to suggest extracapsular extension. Procedure Note Susan Rand MD - 10/21/2012 Examination MR Pelvis WO Clinical History Stage prostate cancer Donny 9 Comparison None. Technique Non contrast enhanced MRI the prostate. Findings Mildly heterogeneous bone marrow signal throughout the visualized pelvis without focal marrow replacement. No pelvic lymphadenopathy. The prostate gland is enlarged, measuring 5.4 cm x 5.1 cm x 4.0 cm. Thegland is diffusely heterogeneous in signal intensity. On T1 weighted images,there are multi focal regions of hyperintensity which are likely post biopsy hemorrhage. In the mid to inferior left prostate there is a focal, circumscribed, 2 cm nodule which is T1 hypointense and T2 hypointense. In the right prostateat and just above this level, there are heterogeneous and poorly definedregions of low signal intensity on T2 weighted images. These are suspicious for neoplasm. Significant hypertrophy of the central zone is also notedconsistent with pre-existing BPH. The seminal vesicles are normal in morphology and signal intensity without involvement. There are no MR findings to suggest extracapsular extension.No keily-prostatic deep pelvic nodes are identified. Rectum unremarkable in appearance. Impression 1. Markedly enlarged heterogeneous prostate with pre-existing benign prostatic hypertrophy. In addition, there are low signal intensity focion T2 images within the peripheral zone consistent with/concerning for prostate cancer. One is quite circumscribed and measures 2 cm. No MR findings to suggest extracapsular extension. Moses Pérez MD [facility] MRI ORDERABLES documented in this encounter Visit Diagnoses Diagnosis Prostate cancer Malignant neoplasm of prostate documented in this encounter Care Teams Air Pollution Auditor Relationship Specialty Start Date End Date Howard Rayo MD [facility] [address] [place] [address] PCP - General 08/28/12 08/19/16 documented as of this encounter
--- OUTSIDE RECORDS SUMMARY | 2024-04-09 13:58 | XMS_ITS | Encounter Summary ---
Author Organization [facility] [place] [address] Care Team Providers Care Parts Lister Name Role Phone Howard Rayo MD Primary Care Provider [phone] Encounter Details Date Type Department Care Team (Late Contact Info) Description 10/05/2012 8:43 AM EDT - 10/05/2012 11:59 PM EDT Hospital Encounter XRay at [address] [place] [phone] Social History Tobacco Use Types Packs/Day Years [...] PM EST Office Visit Radiation Oncology at [address] [phone] Brenda Calvin PA [facility] [place] [address] documented as of this encounter Visit Diagnoses Not on filedocumented in this encounter Care Teams Parts Lister Relationship Specialty Start Date End Date Howard Rayo MD [facility] [address] [place] [address] PCP - General 08/28/12 08/19/16 documented as of this encounter
--- OUTSIDE RECORDS SUMMARY | 2024-04-09 13:58 | XMS_ITS | Encounter Summary ---
Author Organization [facility] [place] [address] Care Team Providers Care Flat Examiner Name Role Phone Howard Rayo MD Primary Care Provider [phone] Reason for Visit * Reason Comments Radiation Follow-up prostate cancer Encounter Details Date Type Department Care Team (Late st Contact Info) Description 04/21/2014 1:45 PM EST Follow-Up Radiation Oncology at [address] [phone] Joana Layton, LEAD CAREGIVER Malignant neoplasm of prostate Discharge Disposition: Home [...] Sign Reading Time Taken Comments Blood Pressure 136/90 04/21/2014 1:44 PM EST Pulse 62 04/21/2014 1:44 PM EST Temperature 36.8 ??C (98.2 ??F) 04/21/2014 1:44 PM ES T Respiratory Rate 18 04/21/2014 1:44 PM EST Oxygen Saturation 99% 04/21/2014 1:44 PM EST Inhaled Oxygen Concentration - - Weight 71 kg (156 lb 9.6 oz) 04/21/2014 1:44 PM EST Height - - Body Mass Index 24.53 10/29/2012 10:25 AM EDT documented in this encounter Patient Instructions * Patient Instructions* Joana Layton APRN - 04/21/2014 1:38 PM EST Date PSA 04/13/2014 < 0.1 01/11/2014 < 0.1 09/30/2013 <0.1 06/24/2013 <0.03 09/28/2012 57.2 08/27/2012 93.30 Filed Vitals: 04/21/14 1344 BP: 136/90 Pulse: 62 Temp: 36.8 ??C (98.2 ??F) TempSrc: Oral Resp: 18 Weight: 71.033 kg (156 lb 9.6 oz) SpO2: 99% documented in this encounter Progress Notes * Joana Layton APRN - 04/21/2014 1:36 PM EST Identification: Allen Cerda is a 69 y.o. year-old male with high risk prostate cancer, T2a, Welsh 4+5=9, PSA 57.2. He was treated with radiation therapy 79.2 Gy and completed treatment on 03/19/2013. He is in clinic for scheduled follow up. He is continuing nursing home androgen deprivation and is also in clinic [...] Prostatic core needle biopsy, left mid:1. Adenocarcinoma, Welsh grade 4 + 3, involvingapproximately 60% of the fragmented needle biopsy core.2. Perineural invasion is present. I - Prostatic core needle biopsy, left apex:1. Adenocarcinoma, Welsh grade 3 + 4, involvingapproximately 10% of the single biopsy core.2. Perineural invasion is present. J - Prostatic core needle biopsy, left lateral base:1. Adenocarcinoma, Welsh grade 4 + 5, involvingapproximately 70% of the single biopsy core (seeComment).2. Focus of intraluminal cancer, suspicious for lymphatic invasion. K - Prostatic core needle biopsy, left lateral mid:adenocarcinoma, Donny grade 4 + 4, involving [id number]% of the single biopsy core. L - Prostatic core needle biopsy, left lateral apex:Adenocarcinoma, Welsh grade 3 + 3, involving less than 5%of the single biopsy core. M - Prostatic core needle biopsy, left nodule x 2:Adenocarcinoma, Welsh grade 4 + 4, involving [id number]% of the multiple needle biopsy core fragments. [...] metastases. IPSS: 1 TRUS:46cc ALVINA: 25 TREATMENT: AGILITY INSTRUCTOR ADT FOR 28 MONTHS PLANNED. Radiotherapy: Treatment: [...] Gy Treatment Fractions 44 fractions Elapsed Date \\ 03/19/2013 Post Primary Therapy - Les Date 09/30/2013 Post Primary Therapy - Les PSA <0.1 Adjuvant Therapy LHRH agonist--Casodex started on 10/29/2012 through XRT and Lupron given as follows: 11/10/2012 --Lupron 22.5 mg 02/01/2013--Lupron 22.5 mg 04/27/2012--Lupron 22.5 mg 07/23/2013-Lupron 22.5 mg 10/21/2012--Lupron 22.5 mg 01/20/2014-Lupron 22.5 mg 04/21/2014--Lupron 22.5 mg ADT Duration in Months 28 [...] Not on file Social History Narrative ??? No narrative on file Advance Directive: see advance care [...] and incontinence His IPSS is stable at 3 to 4.ALVINA 0 International Prostate Symptom Score Total Score__3 to [...] 2 hours Every hour nocturia X X Review of Systems Constitutional: Negative. 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 Hot flashes--do not interfere with sleep Some increase in fatigue No breast tenderness HENT: Negative. Eyes: Negative. Respiratory: Negative. Negative for chest tightness, shortness of breath and wheezing. Cardiovascular: Negative. Negative for chest pain and leg swelling. Gastrointestinal: Negative. Negative for abdominal pain, diarrhea, constipation, blood in stool, abdominal distention and rectal pain. Slightly more gas Genitourinary: Negative. Negative for dysuria, hematuria, decreased urine volume, enuresis and difficulty urinating. Musculoskeletal: Negative. Negative for arthralgias. Back hurts if does too much Back is feeling better overall Neurological: Negative. Psychiatric/Behavioral: Negative. KPS: 100 Filed Vitals: 04/21/14 1344 BP: 136/90 Pulse: 62 Temp: 36.8 ??C (98.2 ??F) TempSrc: Oral Resp: 18 Weight: 71.033 kg (156 lb 9.6 oz) SpO2: 99% Physical Exam Constitutional: He is oriented to [...] 26 ALT 23 NA 138 K 4.0 Date PSA testosterone 04/13/2014 < 0.1 15 01/11/2014 < 0.1 < 20 09/30/2013 <0.1 <20 06/24/2013 <0.03 09/28/2012 57.2 08/27/2012 93.30 Assessment: Allen Cerda is a very pleasant 69 y.o. year-old male with high risk prostate cancer, T2a, Welsh 4+5=9, PSA 57.2 s/p definitive radiation with [...] planned time 28 months. 3. Labs/FU in [facility] in July 4. Recommended Vitamin D and calcium supplementation. 5. PSA, testosterone CBC, CMP in April 2014 Patient is to call if he has any questions or concerns. documented in this encounter Plan of Treatment Upcoming Encounters Date Type Department Care Team (Late st Contact Info) Description 04/15/2024 1:00 PM EST Office Visit Radiation Oncology at [address] [phone] Brenda Calvin PA [facility] DR HEMATOLOGY [place] [address] documented as of this encounter Procedures Procedure Name Priority Date/Time Associated Diagnosis Comments CHEMOTHERAPY SCAN 04/28/2014 12:00 AM EST documented in this encounter Results * SCAN DOC: CHEMOTHERAPY (04/28/2014 12:00 AM EST) Scanning Provider MEDIA MGR SCAN EXT O RDR/RSLT documented in this encounter Visit Diagnoses Diagnosis Malignant neoplasm of prostate documented in this encounter Care Teams Flat Examiner Relationship Specialty Start Date End Date Howard Rayo MD [facility] [address] [place] [address] PCP - General 08/28/12 08/19/16 documented as of this encounter
--- OUTSIDE RECORDS SUMMARY | 2024-04-09 13:58 | XMS_ITS | Encounter Summary ---
Author Organization [facility] [place] [address] Care Team Providers Care Talent Management Specialist Name Role Phone Howard Rayo MD Primary Care Provider Encounter Details Date Type Department Care Team (Late st Contact Info) Description 01/11/2013 6:45 PM EDT Office Visit Hematology Oncology at [address] [phone] CLINIC, Armani Boyce MD Discharge Disposition: Home Social History Tobacco Use [...] EST Office Visit Radiation Oncology at [address] [phone] Brenda Calvin PA [facility] [place] [address] documented as of this encounter Visit Diagnoses Not on filedocumented in this encounter Care Teams Talent Management Specialist Relationship Specialty Start Date End Date Howard Rayo MD [facility] [address] [place] [address] PCP - General 08/28/12 08/19/16 documented as of this encounter
--- OUTSIDE RECORDS SUMMARY | 2024-04-09 13:58 | XMS_ITS | Encounter Summary ---
Author Organization [facility] [place] [address] Care Team Providers Care Shank Skinner Name Role Phone Howard Rayo MD Primary Care Provider Reason for Visit * Reason Comments Prostate Cancer q3 month lupron Encounter Details Date Type Department Care Team (Heather st Contact Info) Description 01/20/2014 12:00 PM EDT Office Visit Hematology Oncology at [address] [phone] CLINIC, DR MARTINEZ HEM/ONC Prostate cancer Social History Tobacco Use Types Packs/Day Years Used Date Smoking Tobacco: Former Pipe Q uit: 06/24/1986 Cigars Quit: 06/24/18 87 Smokeless Tobacco: Former Chew Comments:quit smoking 1979's & chewing 20 yrs ago Alcohol Use Standard Drinks/Week Comments Yes 0 (1 standard drink = 0.6 oz pure alcohol) ocassional beer, usually in the summer Sex and Gender Information Value Date Recorded Sex Assigned at Not on file Gender Identity Not on file Sexual Orientation Not on file documented as of this encounter Progress Notes * Naya Wolfe - 01/20/2014 11:30 AM EDT Infusion Note Diagnosis:Prostate Cancer Treatment: Lupron Injection Lupron 22.5 mg injected in Left buttocks Patient instructed on side effects of Lupron. Patient states understanding of teaching, Patient aware to call clinic with any questions or concerns. Plan: Return to clinic as scheduled. documented in this encounter Plan of Treatment Upcoming Encounters Date Type Department Care Team (Late st Contact Info) Description 04/15/2024 1:00 PM EST Office Visit Radiation Oncology at [address] [phone] Brenda Calvin PA [facility] [place]AT[place] [address] documented as of this encounter Visit Diagnoses Diagnosis Prostate cancer Malignant neoplasm of prostate documented in this encounter Administered Medications Inactive Administered Medications - up to 3 most recent administrations Medication Order MAR Action Action Date Dose Rate Site leuprolide (LUPRON) injection 22.5 mg 22.5 mg, Intramuscular, ONCE, 1 dose, On Monica 01/20/14 at 1200, Routine Given 01/20/2014 11:29 AM EDT 22.5 mg documented in this encounter Care Teams Shank Skinner Relationship Specialty Start Date End Date Howard Rayo MD [facility] [address] [place] [address] PCP - General 08/28/12 08/19/16 documented as of this encounter
--- OUTSIDE RECORDS SUMMARY | 2024-04-09 13:58 | XMS_ITS | Encounter Summary ---
Author Organization [facility] [place] [address] Care Team Providers Care Vending Machine Host/Hostess Name Role Phone Howard Rayo MD Primary Care Provider [phone] Reason for Visit * Reason Comments Radiation Follow-up prostate cancer Encounter Details Date Type Department Care Team (Late st Contact Info) Description 10/21/2013 2:30 PM EDT Follow-Up Radiation Oncology at [address] [phone] Joana Layton, SOFTWARE VERIFICATION ENGINEER Malignant neoplasm of prostate (Primary Dx) Discharge Disposition: Home Social History [...] Sign Reading Time Taken Comments Blood Pressure 136/85 10/21/2013 2:31 PM EDT Pulse 67 10/21/2013 2:31 PM EDT Temperature 37 ??C (98.6 ??F) 10/21/2013 2:31 PM EDT Respiratory Rate 18 10/21/2013 2:31 PM EDT Oxygen Saturation 98% 10/21/2013 2:31 PM EDT Inhaled Oxygen Concentration - - Weight 69.4 kg (153 lb) 10/21/2013 2:31 PM EDT Height - - Body Mass Index 23.96 10/29/2012 10:25 AM EDT documented in this encounter Progress Notes * KinjalMayraJoana M, SOFTWARE VERIFICATION ENGINEER - 10/21/2013 2:44 PM EDT RADIATION ONCOLOGY FOLLOW-UP VISIT NOTE Identification: Allen Cerda is a 68 y.o. 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 He was treated with radiation therapy 79.2 Gy and completed treatment on 03/19/2013. He is in clinic for scheduled follow up. He is continuing long term care pharmacist androgen deprivation and is also in clinic [...] Prostatic core needle biopsy, left base: Adenocarcinoma, Penrose grade 4 + 3, involving approximately 50% of the single biopsy core. H - Prostatic core needle biopsy, left mid:1. Adenocarcinoma, Donny grade 4 + 3, involvingapproximately 60% of the fragmented needle biopsy core.2. Perineural invasion is present. I - Prostatic core needle biopsy, left apex:1. Adenocarcinoma, Penrose grade 3 + 4, involvingapproximately 10% of the single biopsy core.2. Perineural invasion is present. J - Prostatic core needle biopsy, left lateral base:1. Adenocarcinoma, Penrose grade 4 + 5, involvingapproximately 70% of the single biopsy core (seeComment).2. Focus of intraluminal cancer, suspicious for lymphatic invasion. K - Prostatic core needle biopsy, left lateral mid:adenocarcinoma, Donny grade 4 + 4, involving [id number]% of the single biopsy core. L - Prostatic core needle biopsy, left lateral apex:Adenocarcinoma, Donny grade 3 + 3, involving less than 5%of the single biopsy core. M - Prostatic core needle biopsy, left nodule x 2:Adenocarcinoma, Penrose grade 4 + 4, involving [id number]% of the multiple needle biopsy core fragments. [...] metastases. IPSS: 1 TRUS:46cc ALVINA: 25 TREATMENT: QUALITY MANAGER ADT FOR 28 MONTHS PLANNED. Radiotherapy: [...] dose: 7920.0 cGy Total Dose: 7920.0 cGy Prostate Cancer Notes 10/27/2013 Date of Presentation 08/27/2012 Age at Presentation 67 years old PSA at Presentation 93.30 on 08/27/2012, and 57.2 on 09/28/2012 Presence of Symptoms at Presentation negative Ethnicity White Result of CANDIS Abnormal Date of TRUS and Biopsy 10/05/2012 Volume in cc 46 cc Penrose grade/score a+b=c 4+5=9 Total Cores 13 Positive cores 7 Bone Scan at Presentation -negative Date of [...] mg 02/01/2013--Lupron 22.5 mg 04/27/2012--Lupron 22.5 mg 10/21/2012--Lupron 22.5 mg ADT Duration in Months 28 [...] as needed. Indications: Pain, chronic back pain History Social History ??? Marital Status: Spouse [...] ??? Drug Use: Not on file ??? Sexually Active: Not on file Other Topics Concern ??? Not on file Social History Narrative ??? No narrative on file Advance Directive: see advance care planning note. Interim History: Mr Cerda reports that he is feeling well. +non-distressing hot flashes. Work around his property and tolerating but fatigues faster so then stops, no pain. No bowel issues--he reports no constipation, no diarrhea, no hematochezia and no melena.--Mr Cerda had a colonoscopy done 12/29/2012 and four polyps were removed. He has no bladder issues. He denies dysuria, hematuria and incontinence. ALVINA 0 International Prostate Symptom Score Total Score____ 0 1 2 3 4 5 Not [...] Every 2 hours Every hour nocturia X Review of Systems Constitutional: Negative. 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 Hot flashes--do not interfere with sleep Some [...] overall Neurological: Negative. Hematological: Negative. Psychiatric/Behavioral: Negative. Filed Vitals: 10/21/13 1431 BP: 136/85 Pulse: 67 Temp: 37 ??C (98.6 ??F) TempSrc: Oral Resp: 18 Weight: 69.4 kg (153 lb) SpO2: 98% KPS: 100 Physical Exam Vitals reviewed. Constitutional: He is oriented to person, place, and time. He appears well- developed and well-nourished. No distress. HENT: Head: Normocephalic and atraumatic. Eyes: Conjunctivae normal and EOM are normal. No scleral icterus. [...] He exhibits no distension. There is no tenderness. Musculoskeletal: Normal range of motion. He exhibits no edema and no tenderness. Lymphadenopathy: He has no cervical adenopathy. Neurological: He is alert and oriented to person, place, and time. No cranial nerve deficit. He exhibits normal muscle tone. Coordination normal. Skin: Skin is warm and dry. No rash noted. He is not diaphoretic. No erythema. No pallor. Psychiatric: He has a normal mood and affect. His behavior is normal. Judgment and thought content normal. Date PSA testosterone 09/30/2013 <0.1 <20 06/24/2013 <0.03 09/28/2012 57.2 08/27/2012 93.30 Assessment: Allen Cerda is a 68 y.o. year-old male with high risk prostate cancer, T2a, [place] 4+5=9, PSA 57.2 s/p definitive radiation with neoadjuvant/concurrent androgen deprivation (combined androgen blockade) and is continuing on androgen deprivation (Lupron) for a planned total time of 28 mo nths. Mr Cerda completed radiation in March 2013. PSA is undetectable. Testosterone castrate. We reviewed his lab results. He has [...] given today. 2. Next Lupron due in January 2014. Total planned time 28 months. 3. Labs/FU in [facility] in January. 4. Recommended Vitamin D and calcium supplementation. 5. PSA, testosterone CBC, CMP in January. documented in this encounter Procedure Notes * Provider, Johnny - 10/21/2013 3:59 PM EDTAssociated Order(s): SCAN DOC: CHEMOTHERAPY documented in this encounter Plan of Treatment Upcoming Encounters Date Type Department Care Team (Late st Contact Info) Description 04/15/2024 1:00 PM EST Office Visit Radiation Oncology at [address] [phone] Brenda Calvin PA [facility] HEMATOLOGY [place] [address] documented as of this encounter Procedures Procedure Name Priority Date/Time Associated Diagnosis Comments CHEMOTHERAPY SCAN 10/21/2013 3:5 9 PM EDT documented in this encounter Results * SCAN DOC: CHEMOTHERAPY (10/21/2013 3:59 PM EDT) Narrative 10/21/2013 3:59 PM EDT Procedure Note Provider, Scanning - 10/21/2013 3:59 PM EDT Scanning Provider MEDIA MGR SCAN EXT O RDR/RSLT documented in this encounter Visit Diagnoses Diagnosis Malignant neoplasm of prostate- Primary documented in this encounter Care Teams Vending Machine Host/Hostess Relationship Specialty Start Date End Date Howard Rayo MD [facility] [address] [place] [address] PCP - General 08/28/12 08/19/16 documented as of this encounter
--- OUTSIDE RECORDS SUMMARY | 2024-04-09 13:58 | XMS_ITS | Encounter Summary ---
[place] [address] Care Team Providers Care Singer Songwriter Name Role Phone Howard Rayo MD Primary Care Provider [phone] Reason for Visit * Reason Comments On Treatment Visit Encounter Details Date Type Department Care Team (Late st Contact Info) Description 01/28/2013 1:00 PM EDT Office Visit Radiation Oncology at [address] [phone] Keven Smith MD [address] [place] [address] [place] [address] Prostate cancer (Primary Dx) Discharge Disposition: Home Social History Tobacco Use Types Packs/Day Years Used Date Smoking Tobacco: Former Sex and Gender Information Value Date Recorded Sex Assigned at Not on file Gender Identity Not on file Sexual Orientation Not on file documented as of this encounter Last Filed Vital Signs Vital Sign Reading Time Taken Comments Blood Pressure 127/76 01/28/2013 12:00 PM EDT Pulse 60 01/28/2013 12:00 PM EDT Temperature - - Respiratory Rate - - Oxygen Saturation 97% 01/28/2013 12:00 PM EDT Inhaled Oxygen Concentration - - Weight - - Height - - Body Mass Index - - documented in this encounter Progress Notes * Keven Smith MD - 01/28/2013 12:55 PM EDT ON TREATMENT VISIT NOTE Identification: Allen Cerda is a 68 y.o. year old gentleman with high risk prostate cancer, T2a, [place] 4+5=9, PSA 57.2. Current Treatment Dose: 1980cGy Anticipated Total Dose: 7920cGy Current number of RT Tx Received: 11 Anticipated total number of RT Treatments: 44 Concomitant Therapy: Total Androgen Blockade Evaluation of Verification Imaging: Approved by Dr. Bejarano: For details, see record in [facility]. Changes in Medical Condition: Doing well. Fatigue is minimal. Nocturia at baseline was 1-2X, still at 3-4X. No hematuria or dysuria. Loose stools x 1 last week, resolved without immodium. Pain management: No pain Physical Examination: Filed Vitals: 01/28/13 1200 BP: 127/76 Pulse: 60 SpO2: 97% Well appearing, NAD. Assessment: Stable increased nocturia otherwise responding to treatment as expected. Plan: 1. Continue ADT / XRT as prescribed by Dr. Bejarano (Lupron 22.5 mg given 11/09. Per Dr. Bejarano's note from last week, it is due 03/04. Will discuss with him whether this should be 02/09.) 2. He still wishes to defer Floxmax or NSAIDs as nocturia is not too bothersome to him. documented in this encounter Plan of Treatment Upcoming Encounters Date Type Department Care Team (Late st Contact Info) Description 04/15/2024 1:00 PM EST Office Visit Radiation Oncology at [address] [phone] [facility] [place] [address] documented as of this encounter Visit Diagnoses Diagnosis Prostate cancer- Primary Malignant neoplasm of prostate documented in this encounter Care Teams Singer Songwriter Relationship Specialty Start Date End Date Howard Rayo MD [facility] [place] [address] [place] [address] PCP - General 08/28/12 08/19/16 documented as of this encounter
--- OUTSIDE RECORDS SUMMARY | 2024-04-09 13:58 | XMS_ITS | Encounter Summary ---
[place] [address] Care Team Providers Care Anvil Worker Name Role Phone Howard Rayo MD Primary Care Provider [phone] Reason for Visit * Reason Comments Simulation Encounter Details Date Type Department Care Team (Latest Contact Info) Description 01/01/2013 9:00 AM EDT Ancillary Appointment [place] [address] Armani Bejarano MD Prostate cancer Social History Tobacco Use Types Packs/Day Years Used Date Smoking Tobacco: Former Sex and Gender Information Value Date Recorded Sex Assigned at Not on file Gender Identity Not on file Sexual Orientation Not on file documented as of this encounter Patient Instructions * Patient Instructions* Jayda Reyna RN - 01/01/2013 8:38 AM EDT Section of Radiation Oncology Your team members are: SOL Menjivar Promotions Intern AMBREEN Ruiz ARNP Our normal business hours are- Friday - Friday 8 AM to 5 PM If you have questions about your radiation appointments please ask to speak to your national secretary. If you have questions for your nurse about radiation treatments, radiation side effects or you are not feeling well it is best to call early in the day. This allows your nurse to return your call by 5 PM the same day. If you call after 4 PM, your nurse will return your call by 5 PM the following day. If you experience any of the following you need to seek emergency care immediately by calling 911 1. Sudden and unexpected breathing difficulty without any exertion 2. Sudden onset of chest pain 3. Sudden onset of severe pain or uncontrolled pain 4. Sudden onset of severe weakness and/or unable to ambulate 5. Sudden new onset of a seizure 6. Fall resulting in injury A Radiation Oncology doctor is home performance consultant after our normal hours and on weekends. To call for urgent medical issues from radiation treatments that can not wait until normal business hours, please call and have the tumbler dyeing machine operator page the Radiation Oncologist in call. documented in this encounter Progress Notes * Armani Bejarano MD - 01/01/2013 9:40 AM EDT RADIATION ONCOLOGY SIMULATION NOTE Identification: Sandro Cerda is a 67 y.o. year old gentleman with high risk prostate cancer, T2a, [place] 4+5=9, PSA 57.2. Narrative: Consent was confirmed and the patient was brought back to the CT simulation suite. He laid supine on the CT table. His head rested in a neutral cup , his legs were positioned appropriately. 2.[address] slices were obtained through the pelvis . These images were reconstructed and reviewed . The isocenter was set . He was tattooed for integrity of set-up. He tolerated this procedure well without any complications. Treatment Plan: Definitive radiotherapy for high risk prostate cancer. Gold coils have been placed. An MRI will be fused to the planning CT for contouring. IMRT/IGRT will be utilized to spare normal tissues such as rectum, bladder, and the femoral heads. * Jayda Reyna RN - 01/01/2013 8:31 AM EDT Radiation Oncology Simulation Note sandro is here for radiation planning , undergoing a simulation to the pelvis for prostate cancer treatment . Usual radiation oncology routines and purpose of on treatment visits were explained. Site to be treated: prostate Anticipatory Guidance: Procedure reviewed, pt has full bladder, verbalized understanding of events of the day and has no questions. He plans to get Rt in [facility]. They have the number for here to contact Dr. Bejarano if there are questions or concerns. I also told him he would be seeing an RN jeff Doctor once a week at [facility] to discuss his progress and handle any problems. Patient confirms they can have no difficulties lying flat/plan. documented in this encounter Plan of Treatment Upcoming Encounters Date Type Department Care Team (Late st Contact Info) Description 04/15/2024 1:00 PM EST Office Visit Radiation Oncology at [address] [phone] Brenda Calvin PA [facility] [address] [place] [address] documented as of this encounter Visit Diagnoses Diagnosis Prostate cancer Malignant neoplasm of prostate documented in this encounter Care Teams Anvil Worker Relationship Specialty Start Date End Date Howard Rayo MD [facility] [address] [place] [address] PCP - General 08/28/12 08/19/16 documented as of this encounter
--- OUTSIDE RECORDS SUMMARY | 2024-04-09 13:58 | XMS_ITS | Encounter Summary ---
[place] [address] Care Team Providers Care Sumac Tanner Name Role Phone Howard Rayo MD Primary Care Provider [phone] Reason for Visit * Reason Comments Radiation Follow-up Encounter Details Date Type Department Care Team (Late st Contact Info) Description 06/24/2013 12:00 PM EDT Office [place] [id number] Armani Bejarano MD Prostate cancer; Encounter for monitoring androgen deprivation therapy Discharge Disposition: Home Social History Tobacco Use [...] Sign Reading Time Taken Comments Blood Pressure 127/77 06/24/2013 1:13 PM EDT Pulse 80 06/24/2013 1:13 PM EDT Temperature 36.7 ??C (98 ??F) 06/24/2013 1:13 PM EDT Respiratory Rate 20 06/24/2013 1:13 PM EDT Oxygen Saturation 98% 06/24/2013 1:13 PM EDT room air Inhaled Oxygen Concentration - - Weight 70.3 kg (155 lb) 06/24/2013 1:13 PM EDT Height - - Body Mass Index 24.28 10/29/2012 10:25 AM EDT documented in this encounter Patient Instructions * Patient Instructions* Armani Bejarano MD - 06/24/2013 1:52 PM EDT Mr. Cerda: I recommend supplementary calcium intake of 500-1000 mg daily and supplemental vitamin D 800 to 1000 international units daily. I recommend this for my patients on the hormonal therapy. documented in this encounter Progress Notes * Armani Bejarano MD - 06/24/2013 3:21 PM EDT RADIATION ONCOLOGY FOLLOW-UP VISIT NOTE Identification: Allen Cerda is a 68 y.o. 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 Radiotherapy: Treatment: Definitive radiation with Neoadjuvant/Concurrent/Adjuvant Androgen [...] dose: 7920.0 cGy Total Dose: 7920.0 cGy Systemic Therapy: nursing home Androgen Deprivation (Total time 28 months) Interim History: Mr. Cerda returns and is doing well. He notes no residual effects from radiation. IPSS 3 Pre-treatment 1 He has nocturia X 2. No urgency, dysuria or hematuria. Normal Bowels. ALVINA 1 Pre-treatment 25. PSA today undetectable. Allergies: No Known Allergies Review of Systems: Gen: Energy good. No fevers. : No increased frequency, dysuria, or incontinence. No hematuria. GI: Normal formed stools. No pain or blood. Physical Exam: Filed Vitals: 06/24/13 1313 BP: 127/77 Pulse: 80 Temp: 36.7 ??C (98 ??F) Resp: 20 Gen: Well appearing, NAD AAOX3, interactive and asks appropriate questions. Ambulatory Labs: Recent Results (from the past 24 hour(s)) CBC (WITH DIFF) Component Value Range WBC 4.6 4.0 - 10.0 x10(3)/mcL RBC 4.60 (*) 4.63 - 6.08 x10(6)/mcL Hemoglobin 14.1 13.7 - 17.5 gm/dL Hematocrit 40.7 40.0 - 51.0 % MCV 88.5 79.0 - 92.0 fL MCH 30.7 25.6 - 32.2 pg MCHC 34.6 32.0 - 36.5 gm/dL Platelets 190 145 - 370 x10(3)/mcL RDWSD 38.8 35.0 - 46.0 fL RDWCV 12.1 10.9 - 14.4 % MPV 10.0 9.0 - 12.0 fL COMPREHENSIVE METABOLIC PANEL (NON-FASTING) Component Value Range Glucose Lvl 72 60 - 199 mg/dL BUN 13 10 - 20 mg/dL Creatinine 0.76 (*) 0.80 - 1.50 mg/dL Sodium 143 135 - 145 mmol/L Potassium 4.2 3.5 - 5.0 mmol/L Chloride 106 98 - 107 mmol/L CO2 28 22 - 31 mmol/L Anion Gap 9 5 - 15 mmol/L Calcium 9.5 8.5 - 10.5 mg/dL Total Protein 6.8 6.4 - 8.3 gm/dL Albumin 4.3 3.2 - 5.2 gm/dL AST 22 0 - 39 unit/L ALT 15 0 - 55 unit/L Alk Phos 62 40 - 120 unit/L Total Bilirubin 0.4 0.2 - 1.3 mg/dL Bili, Direct 0.1 0.0 - 0.3 mg/dL Estimated GFR >60 >=60 TESTOSTERONE, TOTAL Component Value Range Testo Total <0.03 (*) 2.80 - 8.00 ng/mL PSA Component Value Range PSA Total <0.03 0.00 - 4.00 ng/mL DIFFERENTIAL, AUTOMATED Component Value Range Neutrophils % 65.8 34.0 - 71.0 % Neutr Abs (ANC) 3.06 1.50 - 6.30 x10(3)/mcL Lymphocytes % 17.0 (*) 19.0 - 53.0 % Lymphocytes Abs 0.8 (*) 1.0 - 3.6 x10(3)/mcL Monocytes % 14.0 (*) 4.0 - 13.0 % Monocyte Abs 0.6 0.2 - 1.0 x10(3)/mcL Eosinophils % 2.8 0.0 - 7.0 % Eosinophils Abs 0.1 0.0 - 0.5 x10(3)/mcL Basophils % 0.4 0.0 - 2.0 % Basophils Abs 0.0 0.0 - 0.2 x10(3)/mcL Immature Gran % 0.00 0.00 - 0.66 % Negrita Gran Abs 0.00 0.00 - 0.05 x10(3)/mcL Assessment: Allen Cerda is a 68 y.o. 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 Completed radiation in March. PSA is undetectable. Testosterone castrate. We reviewed his lab results. I confirmed he is no longer taking bicalutamide. We reviewed the plan of long-term ADT, he will continue to get Lupron in [facility]. He has no/minimal residual side effects from radiation. He has mild fatigue and hot flashes from ADT. I reviewed the need for continued PSA monitoring. I discussed in detail potential late effects from radiation and side effects from remaining on ADT. I recommended use of Vitamin D and calcium for bone health and frequent screening for metabolic changes due to ADT with his PCP. All questions were addressed. Plan: 1. Lupron due in July. Total planned time 28 months. 2. Labs/FU in [facility] in October. 3. Recommended Vitamin D and calcium supplementation. 4. Recommended routine FU and screening for metabolic effects of ADT with with PCP. Total visit time was 17 minutes. 12 minutes were spent in face to face counseling and coordination of care. documented in this encounter Procedure Notes * Provider, Scanning - 09/30/2013 8:25 PM EDTAssociated Order(s): SCAN DOC: LAB documented in this encounter Miscellaneous Notes * Miscellaneous - Provider, Scanning - 06/28/2013 10:55 AM EDT documented in this encounter Plan of Treatment Upcoming Encounters Date Type Department Care Team (Late st Contact Info) Description 04/15/2024 1:00 PM EST Office Visit Radiation Oncology at [address] [phone] Brenda Calvin PA [facility] [address] [place] [address] documented as of this encounter Procedures Procedure Name Priority Date/Time Associated Diagnosis Comments LAB SCAN 09/30/2013 8:25 PM EDT DIFFERENTIAL, AUTOMATED Routine 06/24/2013 11:51 AM EDT CBC (WITH DIFF) Routine 06/24/2013 11:51 AM EDT Prostate cancer Encounter for monitoring androgen deprivation therapy TESTOSTERONE, TOTAL Routine 06/24/2013 1 1:51 AM EDT Prostate cancer Encounter for monitoring androgen deprivation therapy PSA (ULTRASENSITIVE) Routine 06/24/2013 11:51 AM EDT Prostate cancer Encounter for monitoring androgen deprivation therapy COMPREHENSIVE METABOLIC PANEL Routine 06/24/2013 11:51 AM EDT Prostate cancer Encounter for monitoring androgen deprivation therapy documented in this encounter Results * SCAN DOC: LAB (09/30/2013 8:25 PM EDT) Narrative 09/30/2013 8:25 PM EDT Procedure Note Provider, Scanning - 09/30/2013 8:25 PM EDT Scanning Provider MEDIA MGR SCAN EXT O RDR/RSLT * (ABNORMAL) Differential, Automated (06/24/2013 11:51 AM EDT) Neutrophil % 65.8 34.0 - 71.0 % CERNER MILLENNIUM Neutrophil Absolute 3.06 1.50 - 6.30 x10(3)/mc L CERNER MILLENNIUM Lymph % 17.0(L) 19.0 - 53.0 % CERNER MILLENNIUM Lymphocytes Abs 0.8(L) 1.0 - 3.6 x10(3)/mc L CERNER MILLENNIUM Monocyte % 14.0(H) 4.0 - 13.0 % CERNER MILLENNIUM Monocyte Abs 0.6 0.2 - 1.0 x10(3)/mc L CERNER MILLENNIUM Eos % 2.8 0.0 - 7.0 % CERNER MILLENNIUM Eosinophils Abs 0.1 0.0 - 0.5 x10(3)/mc L CERNER MILLENNIUM Basophil % 0.4 0.0 - 2.0 % CERNER MILLENNIUM Baso Absolute 0.0 0.0 - 0.2 x10(3)/mc L CERNER MILLENNIUM Immature Gran % 0.00 0.00 - 0.66 % CERNER MILLENNIUM Comment: Immature granulocytes(IG's)percentage and absolute count will include metamyelocytes, myelocytes, and promyelocytes. Blood smears from CBCs yielding IG's will be scanned manually for concordance. If this scan disagrees with the automated IG or if promyelocytes are noted, a manual differential will be performed. Immature Gran Absolute 0.00 0.00 - 0.05 x10(3)/mc L CERNER MILLENNIUM Blood specimen (specimen) 06/24/2013 11:51 AM EDT 06/24/2013 11:58 AM EDT Armani Bejarano MD HEMATOLOGY ORDERABLE S CERNER MARYENNIUM * PSA (06/24/2013 11:51 AM EDT) Prostate Specific Antigen (Ultrasensitiv e) <0.03 0.00 - 4.00 ng/mL [facility] Blood specimen (specimen) 06/24/2013 11:51 AM EDT 06/24/2013 11:58 AM EDT Narrative Resulting Agency Comment Spec In Lab Armani Bejarano MD CHEMISTRY ORDERABLES [facility] * (ABNORMAL) Testosterone, total (06/24/2013 11:51 AM EDT) Testosterone <0.03(L) 2.80 - 8.00 ng/mL [facility] Comment: Reference Ranges: ? Males (7to18 years) [...] pediatric reference ranges derived from review of [employer]ide[employer] E170 Testosterone II reagent package insert 10/14, V2. Blood specimen (specimen) 06/24/2013 11:51 AM EDT 06/24/2013 11:58 AM EDT Narrative Resulting Agency Comment Spec In Lab Armani Bejarano MD CHEMISTRY ORDERABLES [facility] * (ABNORMAL) Comprehensive metabolic panel (non-fasting) (06/24/2013 11:51 AM EDT) [facility] Glucose 72 60 - 199 mg/dL CERNER MILLENNIUM Comment:Diabetes: >=200 mg/d L plus symptoms Blood Urea Nitrogen 13 10 - 20 mg/dL CERNER MILLENNIUM Creatinine 0.76(L) 0.80 - 1.50 mg/dL CERNER MILLENNIUM Comment: Please note that the pediatric reference intervals supplied above were not validated at [facility] [place] [place]. Results from pediatric patients should be interpreted [...] In Lab Armani Bejarano MD CHEMISTRY ORDERABLES CERANEL MILLENNIUM * (ABNORMAL) CBC (with Diff) (06/24/2013 11:51 AM EDT) White Blood Cell 4.6 4.0 - 10.0 x10(3)/mc L CERNER MILLENNIUM Red Blood Cell 4.60(L) 4.63 - 6.08 x10(6)/mc L CERNER MILLENNIUM Hemoglobin 14.1 13.7 - 17.5 gm/dL CERNER MILLENNIUM Hematocrit 40.7 40.0 - 51.0 % [facility] Mean Cell Volume 88.5 79.0 - 92.0 fL CERNER MILLENNIUM Mean Cell Hemoglobin 30.7 25.6 - 32.2 pg CERNER MILLENNIUM Mean Cell Hemoglobin Concentration 34.6 32.0 - 36.5 gm/dL CERNER MILLENNIUM Platelet 190 145 - 370 x10(3)/mc L CERNER MILLENNIUM RDW Standard Deviation 38.8 35.0 - 46.0 fL CERNER MILLENNIUM RDW coefficient of variation 12.1 10.9 - 14.4 % CERNER MARYENNIUM Mean Platelet Volume 10.0 9.0 - 12.0 fL [facility] Blood specimen (specimen) 06/24/2013 11:51 AM EDT 06/24/2013 11:58 AM EDT Narrative Resulting Agency Comment Spec In Lab Armani Bejarano MD HEMATOLOGY ORDERABLE S Performing Organization Address City/State/[facility] Co de Phone Number [facility] documented in this encounter Visit Diagnoses Diagnosis Prostate cancer Malignant neoplasm of prostate Encounter for monitoring androgen deprivation therapy Encounter for therapeutic drug monitoring documented in this encounter Care Teams Sumac Tanner Relationship Specialty Start Date End Date Howard Rayo MD [facility] [address] [place] [address] PCP - General 08/28/12 08/19/16 documented as of this encounter
--- OUTSIDE RECORDS SUMMARY | 2024-04-09 13:58 | XMS_ITS | Encounter Summary ---
Author Organization [facility] [place] [address] Care Team Providers Care Industrial Roofer Helper Name Role Phone Howard Rayo MD Primary Care Provider [phone] Encounter Details Date Type Department Care Team (Latest Contact Info) Description 01/01/2013 10:10 AM EDT - 01/01/2013 11:59 PM EDT Hospital [place] [id number] Prostate cancer Social History Tobacco Use Types Packs/Day Years Used Date Smoking Tobacco: Former Sex and Gender Information Value Date Recorded Sex Assigned at Not on file Gender Identity Not on file Sexual Orientation Not on file documented as of this encounter Medications at Time of Discharge Medication Sig Dispensed Refills Start Date End Date bicalutamide (CASODEX) 50 mg tabletIndications:Prosta te cancer Take 1 tablet by mouth daily. 30 tablet 5 10/29/2012 10/21/2013 documented as of this encounter Plan of Treatment Upcoming Encounters Date Type Department Care Team (Late st Contact Info) Description 04/15/2024 1:00 PM EST Office Visit Radiation Oncology at [address] [phone] Brenda Calvin PA [facility] [place] [address] documented as of this encounter Procedures Procedure Name Priority Date/Time Associated Diagnosis Comments MRI PELVIS SOFT TISSUE (GI CUSTOMER SERVICE OPERATOR) WO CONTRAST Routine 01/01/2013 11:57 AM EDT Prostate cancer documented in this encounter Results * MRI [...] apex shows interval decrease in size now [id number] mm and likely represents a resolving hematoma. [...] prostate documented in this encounter Care Teams Industrial Roofer Helper Relationship Specialty Start Date End Date Howard Rayo MD [facility] [address] [place] [address] PCP - General 08/28/12 08/19/16 documented as of this encounter
--- OUTSIDE RECORDS SUMMARY | 2024-04-09 13:58 | XMS_ITS | Encounter Summary ---
Author Organization [facility] [place] [address] Care Team Providers Care Melting Supervisor Name Role Phone Howard Rayo MD Primary Care Provider [phone] Encounter Details Date Type Department Care Team (Late Contact Info) Description 01/01/2013 8:30 AM EDT Follow-[place] [address] NURSE, RADIATION ONCOLOGY RADIATION ONCOLOGY [facility] Discharge Disposition: Home Social History Tobacco Use [...] PM EST Office Visit Radiation Oncology at [address] [phone] Brenda Calvin PA [facility] [address] [place] [address] documented as of this encounter Visit Diagnoses Not on filedocumented in this encounter Care Teams Melting Supervisor Relationship Specialty Start Date End Date Howard Rayo MD [facility] [address] [place] [address] PCP - General 08/28/12 08/19/16 documented as of this encounter
--- OUTSIDE RECORDS SUMMARY | 2024-04-09 13:58 | XMS_ITS | Encounter Summary ---
[place] [address] Care Team Providers Care Gamemaster Name Role Phone Howard Rayo MD Primary Care Provider [phone] Reason for Visit * Reason Comments Prostate Cancer Encounter Details Date Type Department Care Team (Late st Contact Info) Description 10/29/2012 11:15 AM EDT Office Visit Hematology [place] [address] Atif Domínguez MD Prostate cancer (Primary Dx) Discharge Disposition: Home Social History Tobacco Use Types Packs/Day Years Used Date Smoking Tobacco: Former Sex and Gender Information Value Date Recorded Sex Assigned at Not on file Gender Identity Not on file Sexual Orientation Not on file documented as of this encounter Progress Notes * Atif Domínguez MD - 10/29/2012 7:24 AM EDT This is a healthy 67 year old man referred by Dr. Pérez for discussion of surgical management of his newly diagnosed prostate cancer. He was found to have an elevated PSA and abnormal CANDIS on physical exam. 08/27/2012 PSA 98 09/28/2012: PSA 57.2 On 10/05/12, her underwent a TRUS biopsy. Repeat CANDIS revealed a large left nodule. There was a hypoechoic area on the left that was specifically biopsied. 14 cores were taken. 46cc gland demonstrated. ---Pathologic Diagnosis--- A - Prostatic core needle [...] Prostatic core needle biopsy, left base: Adenocarcinoma, Carthage grade 4 + 3, involving approximately 50% of the single biopsy core. H - Prostatic core needle biopsy, left mid: 1. Adenocarcinoma, Carthage grade 4 + 3, involving approximately 60% of the fragmented needle biopsy core. 2. Perineural invasion is present. I - Prostatic core needle biopsy, left apex: 1. Adenocarcinoma, Carthage grade 3 + 4, involving approximately 10% of the single biopsy core. 2. Perineural invasion is present. J - Prostatic core needle biopsy, left lateral base: 1. Adenocarcinoma, Carthage grade 4 + 5, involving approximately 70% of the single biopsy core (see Comment). 2. Focus of intraluminal cancer, suspicious for lymphatic invasion. K - Prostatic core needle biopsy, left lateral mid: Adenocarcinoma, Donny grade 4 + 4, involving approximately 25% of the single biopsy core. L - Prostatic core needle biopsy, left lateral apex: Adenocarcinoma, Carthage grade 3 + 3, involving less than 5% of the single biopsy core. M - Prostatic core needle biopsy, left nodule x 2: Adenocarcinoma, Donny grade 4 + 4, involving approximately 60% of the multiple needle biopsy core fragments. MRI revealed 1. Markedly enlarged heterogeneous prostate with pre-existing benign prostatic hypertrophy. In addition, there are low signal intensity foci on T2 images within the peripheral zone consistent with/concerning for prostate cancer. One is quite circumscribed and measures 2 cm. No MR findings to suggest extracapsular extension. Bone scan was negative for osseous metastasis. Currently he voids well. He gets up 1 x at night. Stream OK. No blood. IPSS is 1. Erections OK. ALVINA 25. Appetite good, Weight stable, No bone pain. He has back pain since 08/20 after shovelling a dump truck of manure. Pain is better now. PMhx None PShx Appendectomy as a child Vasectomy History Social History ??? Marital Status: Spouse Name: N/A Number of Children: N/A ??? Years of Education: N/A Occupational History ??? Not on file. Social History Main Topics ??? Smoking status: Former Smoker ??? Smokeless tobacco: Not on file ??? Alcohol Use: Not on file ??? Drug Use: Not on file ??? Sexually Active: Not on file Other Topics Concern ??? Not on file Social History Narrative ??? No narrative on file FH: negative for prostate ca Review of Systems Constitutional: Negative for fever, chills and activity change. Eyes: Negative for visual disturbance. Respiratory: Negative for cough and shortness of breath. Cardiovascular: Negative for chest pain. Gastrointestinal: Negative for abdominal pain and abdominal distention. Genitourinary: Negative for urgency, frequency, hematuria, flank pain and difficulty urinating. Musculoskeletal: Negative for back pain. Skin: Negative for color change. Neurological: Negative for dizziness and headaches. Psychiatric/Behavioral: Negative for confusion and agitation. Physical Exam Constitutional: He is oriented to person, place, and time. He appears well- developed and well-nourished. HENT: Head: Normocephalic and atraumatic. Eyes: Conjunctivae normal are normal. Pupils are equal, round, and reactive to light. Neck: Normal range of motion. Cardiovascular: Normal rate and regular rhythm. Pulmonary/Chest: Effort normal and breath sounds normal. Abdominal: Soft. He exhibits no distension. There is no tenderness. Genitourinary: CANDIS nodular L mid/apex, R apex Musculoskeletal: Normal range of motion. Neurological: He is alert and oriented to person, place, and time. Skin: Skin is warm and dry. Psychiatric: He has a normal mood and affect. Labs: 10/05/2012: U/A Negative A/P: 1. High risk prostate cancer, PSA 57, Donny 4+5=9, cT2c - We discussed the natural history of high risk prostate cancer in detail. Fortunately he does not have evidence of metastasis on imaging, however we discussed the risk of microscopic metastatic disease with his very high PSA and Carthage 9 cancer. Risks/benefits of surgery (radical prostatectomy) for high risk disease was discussed in detail. This option was juxtaposed to the option of XRT/ADT. For surgery, we discussed the need for wideexcision of the gland and extended lymphadenectomy. The probability of requiring adjuvant or salvage XRT/ADT was discussed. Risks of surgery including bleeding, infection, damage to local structures,ED, incontinence and urine leak were reviewed. We discussed that there is no clear data regarding XRT vs surgery for high risk cancer. However, in his case I recommended XRT/ADT based on the high likelihood of requiring this therapy at some juncture, and the added morbidity without obvious added benefit from surgery. His questions were answered in detail and he is agreeable to proceeding with radiation therapy, which he will pursue with Dr. Bejarano. documented in this encounter Plan of Treatment Upcoming Encounters Date Type Department Care Team (Late st Contact Info) Description 04/15/2024 1:00 PM EST Office Visit Radiation Oncology at [address] [phone] Brenda Calvin PA [facility] DR HEMATOLOGY [place] [address] documented as of this encounter Visit Diagnoses Diagnosis Prostate cancer- Primary Malignant neoplasm of prostate documented in this encounter Care Teams Gamemaster Relationship Specialty Start Date End Date Howard Rayo MD [facility] [address] [place] [address] PCP - General 08/28/12 08/19/16 documented as of this encounter
--- OUTSIDE RECORDS SUMMARY | 2024-04-09 13:58 | XMS_ITS | Encounter Summary ---
Author Organization [facility] [place] [address] Care Team Providers Care Scenic Artist Name Role Phone Howard Rayo MD Primary Care Provider [phone] Reason for Visit * Reason Comments On Treatment Visit Encounter Details Date Type Department Care Team (Late st Contact Info) Description 02/11/2013 1:30 PM EST Office Visit Radiation Oncology at [address] [phone] Keven Smith MD [address] [place] [address] [place] [address] Prostate cancer (Primary Dx); Radiation cystitis Discharge Disposition: Home Social History Tobacco Use Types Packs/Day Years Used Date Smoking Tobacco: Former Smokeless Tobacco: Former Comments:quit smoking s & chewing 20 yrs ago Alcohol Use [...] Sign Reading Time Taken Comments Blood Pressure 144/82 02/11/2013 1:00 PM EST Pulse 60 02/11/2013 1:00 PM EST Temperature - - Respiratory Rate - - Oxygen Saturation 97% 02/11/2013 1:00 PM EST Inhaled Oxygen Concentration - - Weight - - Height - - Body Mass Index - - documented in this encounter Progress Notes * Keven Smith MD - 02/11/2013 1:33 PM EST ON TREATMENT VISIT NOTE Identification: Allen Cerda is a 68 y.o. year old gentleman with high risk prostate cancer, T2a, Haines 4+5=9, PSA 57.2. Current Treatment Dose: 3780cGy Anticipated Total Dose: 7920cGy Current number of RT Tx Received: 21 Anticipated total number of RT Treatments: 44 Concomitant Therapy: Total Androgen Blockade Evaluation of Verification Imaging: Approved by Dr. Bejarano: For details, see record in [facility]. Changes in Medical Condition: Doing well. Chronic LBP better this week. Lupron 22.5 given 02/01. Nocturia at baseline was 1-2X, now stable at 3-4X. No hematuria or dysuria. Improves to 1X/night with ibuprofen but not taking regularly as nocturia is not bothersome for him. Stools soft, not watery or bloody. Not taking immodium. Pain management: No pain Physical Examination: Filed Vitals: 02/11/13 1300 BP: 144/82 Pulse: 60 SpO2: 97% Well appearing, NAD. Assessment: Stable increased nocturia. Otherwise tolerating treatment as expected. Plan: 1. Continue ADT / XRT as prescribed by Dr. Bejarano (Lupron 22.5 mg last given 02/01). 2. Will take NSAIDs if nocturia worsens, but for now still not bothersome. Recommended ibuprofen 600 mg or aleve 500mg in the evenings, on a full stomach. documented in this encounter Plan of Treatment Upcoming Encounters Date Type Department Care Team (Late st Contact Info) Description 04/15/2024 1:00 PM EST Office Visit Radiation Oncology at [address] [phone] Brenda Calvin PA [facility] [place] [address] documented as of this encounter Visit Diagnoses Diagnosis Prostate cancer- Primary Malignant neoplasm of prostate Radiation cystitis Irradiation cystitis documented in this encounter Care Teams Scenic Artist Relationship Specialty Start Date End Date Howard Rayo MD [facility] [address] [place] [address] PCP - General 08/28/12 08/19/16 documented as of this encounter
--- OUTSIDE RECORDS SUMMARY | 2024-04-09 13:58 | XMS_ITS | Encounter Summary ---
Author Organization [facility] [place] [address] Care Team Providers Care Order Packer Or Packager Name Role Phone Howard Rayo MD Primary Care Provider [phone] Encounter Details Date Type Department Care Team (Late st Contact Info) Description 02/05/2013 12:45 PM EDT Office Visit Hematology Oncology at [address] [phone] CLINIC, Armani Boyce MD Discharge Disposition: Home [...] PM EST Office Visit Radiation Oncology at [address] [phone] Brenda Calvin PA [facility] [place] [address] documented as of this encounter Visit Diagnoses Not on filedocumented in this encounter Care Teams Order Packer Or Packager Relationship Specialty Start Date End Date Howard Rayo MD [facility] [address] [facility] [place] [address] PCP - General 08/28/12 08/19/16 documented as of this encounter
--- OUTSIDE RECORDS SUMMARY | 2024-04-09 13:58 | XMS_ITS | Encounter Summary ---
Author Organization [facility] [place] [address] Care Team Providers Care Drying Oven Tender Name Role Phone Howard Rayo MD Primary Care Provider [phone] Reason for Visit * Reason Comments Radiation Follow-up Encounter Details Date Type Department Care Team (Late st Contact Info) Description 11/09/2012 9:05 AM EDT Follow-Up Radiation Oncology at [address] [phone] Armani Bejarano MD Prostate cancer (Primary Dx) Discharge Disposition: Home Social History Tobacco Use Types Packs/Day Years Used Date Smoking Tobacco: Former Sex and Gender Information Value Date Recorded Sex Assigned at Not on file Gender Identity Not on file Sexual Orientation Not on file documented as of this encounter Last Filed Vital Signs Vital Sign Reading Time Taken Comments Blood Pressure 147/89 11/09/2012 8:55 AM EDT Pulse 64 11/09/2012 8:55 AM EDT Temperature 36.6 ??C (97.9 ??F) 11/09/2012 8:55 AM ED T Respiratory Rate 16 11/09/2012 8:55 AM EDT Oxygen Saturation 99% 11/09/2012 8:55 AM EDT Inhaled Oxygen Concentration - - Weight 68.9 kg (152 lb) 11/09/2012 8:55 AM EDT Height - - Body Mass Index 23.81 10/29/2012 10:25 AM EDT documented in this encounter Progress Notes * Armani Bejarano MD - 11/09/2012 3:58 PM EDT RADIATION ONCOLOGY CHART NOTE Identification: Allen Cerda is a 67 y.o. 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 Narrative: Mr. Cerda returned for his first Lupron injection today. Treatment plan and potential side effects of hormonal therapy were reviewed. He plans to have a colonoscopy on 12/18/12. He will continue on bicalutamide. We will plan for gold coil placement on 12/25/12. * Dmitry, Teena Burciaga RN - 11/09/2012 10:17 AM EDT Patient education: 1) Hormone therapy 2) Gold coil 3) Simulation 1.) Initial hormone therapy patient education: Literature reviewed and provided to patient and his : #1 [facility]; Shared drive/info for RT patient: a. Hormone therapy for Prostate Cancer. #2 [facility] Clinical Pharmacology; Drug Information Hand Outs: -leuprolide (Lupron) ) Hormone Therapy Regimen, per Dr Bejarano: Patient received prescription for Casodex today with instructions to get this filled and start as soon as possible. Take 1 tablet daily:[ ]for 2 weeks or [x ]continuing through radiation treatment. In 2 weeks from starting Casodex, he will have Lupron injection: Dose:[ ]1 month dose 7.5mg [x]3 month dose 22.5 mg- << Will receive today in the infusion room>> [ ]4 month dose 30 mg Patient verbalized understanding of these instructions. He was also provided with our clinic contact information should he have any questions regarding his treatment or concerns of side effects he may experience. 2.) Patient Teaching for Prostate Fiducials: Procedure and Preparation <<The date and time of this procedure has not yet been scheduled. Dr Bejarano's staff at [facility] will be contacting you with this appointment soon. Procedure: x__Rationale for fiducials: to olga the prostate and allow for tighter margins for RT boost. x__Two small gold coils will be inserted through the perineum into the prostate gland using transrectal ultrasound for guidance. Local anesthetic will be used to numb the area, but the ultrasound probe may feel like uncomfortable pressure. Preparation: x__A week before the coils are scheduled to be placed, anti-coagulants should be discontinued. You will need to get your doctor's permission to do this, if you are taking an anti-coagulant for a current heart condition or clotting disorder. x__You will need to administer two Fleets enemas, one the night before and one the morning of the procedure. x__You may have a normal breakfast and take your usual medications (minus the anticoagulants) the day of the procedure. x__A prescription for an antibiotic to prevent infection will be given to you to start taking before the procedure: Cipro 250 mg BID x 3 days starting the day before. x__A prescription for dexamethasone taper will be given to you and you will start this the day of the procedure. This steroid will help decrease inflammation of the prostate gland. After the Procedure: x__You will be allowed to drive yourself home, UNLESS you have taken something to help you relax. x__A week or so after the procedure you will have an appointment for the planning session, called asimulation treatment. x__Written patient education material was given to the patient. x next to the bullet: Item discussed with patient, and patient verbalizes understanding of item. Patient questions and concerns: Patient verbalized understanding of these instructions. 3.) Simulation Teaching: Male Pelvis <<The date and time of this procedure has not yet been scheduled. Dr Bejarano's staff at [facility] will be contacting you with this appointment soon. x__ Patient instructed to administer saline enema morning of simulation x__ Patient instructed to arrive to appointment with comfortably full bladder and to notify the nursing staff if this is difficult x__ Patient questions were answered, patient knows department phone numbers to call with any further questions or concerns prior to appointment documented in this encounter Procedure Notes * Provider, Scanning - 11/10/2012 3:30 PM EDTAssociated Order(s): SCAN DOC: CHEMOTHERAPY * Provider, Scanning - 11/09/2012 9:19 AM EDTAssociated Order(s): SCAN DOC: LAB documented in this encounter Plan of Treatment Upcoming Encounters Date Type Department Care Team (Late st Contact Info) Description 04/15/2024 1:00 PM EST Office Visit Radiation Oncology at [address] [phone] Brenda Calvin PA [facility] [address] [place] [address] documented as of this encounter Procedures Procedure Name Priority Date/Time Associated Diagnosis Comments CHEMOTHERAPY SCAN 11/10/2012 3:3 0 PM EDT LAB SCAN 11/09/2012 9:19 AM EDT documented in this encounter Results * SCAN DOC: CHEMOTHERAPY (11/10/2012 3:30 PM EDT) Narrative 11/10/2012 3:30 PM EDT Procedure Note Provider, Scanning - 11/10/2012 3:30 PM EDT Scanning Provider MEDIA MGR SCAN EXT O RDR/RSLT * SCAN DOC: LAB (11/09/2012 9:19 AM EDT) Narrative 11/09/2012 9:19 AM EDT Procedure Note Provider, Scanning - 11/09/2012 9:19 AM EDT Scanning Provider MEDIA MGR SCAN EXT O RDR/RSLT documented in this encounter Visit Diagnoses Diagnosis Prostate cancer- Primary Malignant neoplasm of prostate documented in this encounter Care Teams Drying Oven Tender Relationship Specialty Start Date End Date Howard Rayo MD [facility] [address] [place] [address] PCP - General 08/28/12 08/19/16 documented as of this encounter
--- OUTSIDE RECORDS SUMMARY | 2024-04-09 13:58 | XMS_ITS | Encounter Summary ---
[place] [address] Care Team Providers Care Border Measurer Name Role Phone Howard Rayo MD Primary Care Provider Encounter Details Date Type Department Care Team (Late st Contact Info) Description 01/01/2013 9:00 AM EDT Initial consult [place] [address] Social History Tobacco Use Types Packs/Day Years [...] EST Office Visit Radiation Oncology at [address] [phone] Brenda Calvin PA [facility] DR HEMATOLOGY [place] [address] documented as of this encounter Visit Diagnoses Not on filedocumented in this encounter Care Teams Border Measurer Relationship Specialty Start Date End Date Howard Rayo MD [facility] [address] [place] [address] [place] [address] PCP - General 08/28/12 08/19/16 documented as of this encounter
--- OUTSIDE RECORDS SUMMARY | 2024-04-09 13:58 | XMS_ITS | Encounter Summary ---
Author Organization [facility] [place] [address] Care Team Providers Care Weigh Tank Operator Name Role Phone Howard Rayo MD Primary Care Provider [phone] Reason for Visit * Reason Comments Injections Lupron Injection Encounter Details Date Type Department Care Team (Late Contact Info) Description 10/21/2013 3:30 PM EDT Office Visit Hematology Oncology at [address] [phone] CLINIC, DR MARTINEZ HEM/ONC Prostate cancer (Primary Dx) Social History Tobacco [...] as of this encounter Progress Notes * Ирина Vu RN - 10/21/2013 3:08 PM EDT Treatment Started:1500 Treatment Ended: 1505 Diagnosis: Prostate CA Treatment: Lupron Injection (22.5mg) documented in this encounter Plan of Treatment Upcoming Encounters Date Type Department Care Team ([facility] Contact Info) Description 04/15/2024 1:00 PM EST Office Visit Radiation Oncology at [address] [phone] Brenda Calvin PA [facility] HEMATOLOGY [place] [address] documented as of this encounter Visit Diagnoses Diagnosis Prostate cancer- Primary Malignant neoplasm of prostate documented in this encounter Administered Medications Inactive Administered Medications - up to 3 most recent administrations Medication Order MAR Action Action Date Dose Rate Site leuprolide (LUPRON) injection 22.5 mg 22.5 mg, Intramuscular, ONCE, 1 dose, On Monica 10/21/13 at 1530, Routine Given 10/21/2013 3:05 PM EDT 22.5 mg Right Gluteal documented in this encounter Care Teams Weigh Tank Operator Relationship Specialty Start Date End Date Howard Rayo MD [facility] [address] [place] [address] PCP - General 08/28/12 08/19/16 documented as of this encounter
--- OUTSIDE RECORDS SUMMARY | 2024-04-09 13:58 | XMS_ITS | Encounter Summary ---
Author Organization [facility] [place] [address] Care Team Providers Care Cap And Hat Production Supervisor Name Role Phone Howard Rayo MD Primary Care Provider [phone] Reason for Visit * Reason Comments Radiation Follow-up prostate cancer Encounter Details Date Type Department Care Team (Late st Contact Info) Description 01/20/2014 11:00 AM EDT Follow-Up Radiation Oncology at [address] [phone] Joana Layton, SURGICAL CLINICAL REVIEWER Malignant neoplasm of prostate Discharge Disposition: Home [...] Sign Reading Time Taken Comments Blood Pressure 140/78 01/20/2014 10:51 AM EDT Pulse 61 01/20/2014 10:51 AM EDT Temperature 37 ??C (98.6 ??F) 01/20/2014 10:51 AM EDT Respiratory Rate 20 01/20/2014 10:51 AM EDT Oxygen Saturation 98% 01/20/2014 10:51 AM EDT Inhaled Oxygen Concentration - - Weight 69.9 kg (154 lb) 01/20/2014 10:51 AM EDT Height - - Body Mass Index 24.12 10/29/2012 10:25 AM EDT documented in this encounter Patient Instructions * Patient Instructions* Joana Layton, SURGICAL CLINICAL REVIEWER - 01/20/2014 8:49 AM EDT Prostate Cancer Notes 10/27/2013 Date of Presentation 08/27/2012 Age at Presentation 67 years old PSA at Presentation 98 on 08/27/3012 and 57.2 on 09/28/2012 Presence of Symptoms at Presentation Pressure in perineal area Result of CANDIS Abnormal digital rectal exam-felt nodule Date of TRUS and Biopsy 10/05/2012 Volume in cc 46 cc (enlarged prostate [place] grade/score a+b=c 4+5=9 (high risk prostate cancer) Total Cores 13 needle cores were done Positive cores 7 needle cores were positive for prostate cancer Bone Scan at Presentation -bone scan was negative for spread to bone Date of Bone Scan 10/20/2012 Prostate confined Based on imaging prostate cancer was limited to your prostate PRINCESS (extracapsular extension) -there was no extension of prostate cancer outside your prostate capsule SV (seminal vesicles) -there was no extension of prostate cancer to the seminal vesicles Regular Nodes -there was no prostate cancer involving your lymph nodes Distant Mets -there was no distant spread of prostate cancer Date of MRI 10/20/2012 Urinary Continence at Presentation normal Primary Therapy EBRT--external beam radiation EBRT Date Began 01/14/2013 ERBT Total Dose (Gy) 79.2 Gy Treatment Fractions 44 treatments Elapsed Date 03/19/2013 Post Primary Therapy - Les Date 09/30/2013--date of lowest PSA Post Primary Therapy - Les PSA <0.1 Adjuvant Therapy LHRH agonistLHRH agonist--Casodex started on 10/29/2012 through XRT and Lupron given as follows: 11/10/2012 --Lupron 22.5 mg 02/01/2013--Lupron 22.5 mg 04/27/2012--Lupron 22.5 mg 07/23/2012--Lupron 22.5 mg 10/21/2012--Lupron 22.5 mg 01/20/2014--Lupron 22.5 mg ADT Duration in Months 28 months are planned Date PSA testosterone 01/11/2014 < 0.1 <20 09/30/2013 <0.1 <20 06/24/2013 <0.03 09/28/2012 57.2 08/27/2012 93.30 Filed Vitals: 01/20/14 1051 BP: 140/78 Pulse: 61 Temp: 37 ??C (98.6 ??F) TempSrc: Oral Resp: 20 Weight: 69.854 kg (154 lb) SpO2: 98% documented in this encounter Progress Notes * Joana Layton APRN - 01/20/2014 8:48 AM EDT RADIATION ONCOLOGY FOLLOW-UP VISIT NOTE Identification: Allen Cerda is a 69 y.o. 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 He was treated with radiation therapy 79.2 Gy and completed treatment on 03/19/2013. He is in clinic for scheduled follow up. He is continuing shelter androgen deprivation and is also in clinic [...] Prostatic core needle biopsy, left base: Adenocarcinoma, [place] grade 4 + 3, involving approximately 50% of the single biopsy core. H - Prostatic core needle biopsy, left mid:1. Adenocarcinoma, [employer] [place] grade 4 + 3, involvingapproximately 60% of the fragmented needle biopsy core.2. Perineural invasion is present. I - Prostatic core needle biopsy, left apex:1. Adenocarcinoma, [place] grade 3 + 4, involvingapproximately 10% of the single biopsy core.2. Perineural invasion is present. J - Prostatic core needle biopsy, left lateral base:1. Adenocarcinoma, [employer] grade 4 + 5, involvingapproximately 70% of the single biopsy core (seeComment).2. Focus of intraluminal cancer, suspicious for lymphatic invasion. K - Prostatic core needle biopsy, left lateral mid:adenocarcinoma, [employer] [place] grade 4 + 4, involving [id number]% of the single biopsy core. L - Prostatic core needle biopsy, left lateral apex:Adenocarcinoma, [place] grade 3 + 3, involving less than 5%of the single biopsy core. M - Prostatic core needle biopsy, left nodule x 2:Adenocarcinoma, [place] grade 4 + 4, involving [id number]% of the multiple needle biopsy core fragments. [...] metastases. IPSS: 1 TRUS:46cc ALVINA: 25 TREATMENT: CONSTRUCTION EXECUTIVE ADT FOR 28 MONTHS PLANNED. Radiotherapy: Treatment: [...] 01/20/2014--see after visit summary Prostate Cancer Notes 10/27/2013 Date of Presentation 08/27/2012 Age at Presentation 67 years old PSA at Presentation 93.30 on 08/27/2012, and 57.2 on 09/28/2012 Presence of Symptoms at Presentation negative Ethnicity White Result of CANDIS Abnormal Date of TRUS and Biopsy 10/05/2012 Volume in cc 46 cc [place] grade/score a+b=c 4+5=9 Total Cores 13 Positive [...] mg 10/21/2012--Lupron 22.5 mg 01/20/2014-Lupron 22.5 mg ADT Duration in Months 28 [...] he fatigues faster so then stops. He hasno pain. He has no bowel issues--he reports no constipation, no diarrhea, no hematochezia and no melena.--Mr Cerda had a colonoscopy done 12/29/2012 and four polyps were removed. Hehas no bladder issues. He denies dysuria, hematuria and incontinence His IPSS is stable at 2. ALVINA 0 International Prostate Symptom Score Total Score__2__ 0 1 2 3 4 5 Not [...] Negative. 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 Hot flashes--do not interfere with sleep Some [...] Negative. Hematological: Negative. Psychiatric/Behavioral: Negative. KPS: 100 Filed Vitals: 01/20/14 1051 BP: 140/78 Pulse: 61 Temp: 37 ??C (98.6 ??F) TempSrc: Oral Resp: 20 Weight: 69.854 kg (154 lb) SpO2: 98% Physical Exam Vitals reviewed. Constitutional: He is [...] exhibits no edema and no tenderness. Lymphadenopathy: Head (right side): No submental, [...] normal. Judgment and thought content normal. 01/11/2014 WBC 4.3 RBC 4.69 HCT 41.3 HGB 14.4 PLAT 219 Date PSA testosterone 01/11/2014 < 0.1 < 20 09/30/2013 <0.1 <20 06/24/2013 <0.03 09/28/2012 57.2 08/27/2012 93.30 Assessment: Allen Cerda is a 69 y.o. year-old male with high risk prostate cancer, T2a, [place] 4+5=9, PSA 57.2 s/p definitive radiation with [...] side effects from remaining on ADT. We reviewed his prostate cancer history and treatment history. He was given a copy of his treatmentsummary as per after visit summary He was again I recommended to start Vitamin D and calcium for bone health All questions were addressed. Plan: 1. Lupron 22.5 mg to be given today. 2. Next Lupron due in April 21, 2014. Total planned time 28 months. 3. Labs/FU in [facility] in April 4. Recommended Vitamin D and calcium supplementation. 5. PSA, testosterone CBC, CMP in April 2014 Patient is to call if he has any questions or concerns. documented in this encounter Procedure Notes * Provider, Scanning - 01/20/2014 1:23 PM EDTAssociated Order(s): SCAN DOC: CHEMOTHERAPY documented in this encounter Plan of Treatment Upcoming Encounters Date Type Department Care Team (Late st Contact Info) Description 04/15/2024 1:00 PM EST Office Visit Radiation Oncology at [address] [phone] Brenda Calvin PA [facility] [place]AT[place] [address] documented as of this encounter Procedures Procedure Name Priority Date/Time Associated Diagnosis Comments CHEMOTHERAPY SCAN 01/20/2014 1:2 3 PM EDT documented in this encounter Results * SCAN DOC: CHEMOTHERAPY (01/20/2014 1:23 PM EDT) Narrative 01/20/2014 1:23 PM EDT Procedure Note Provider, Scanning - 01/20/2014 1:23 PM EDT Scanning Provider MEDIA MGR SCAN EXT O RDR/RSLT documented in this encounter Visit Diagnoses Diagnosis Malignant neoplasm of prostate documented in this encounter Care Teams Cap And Hat Production Supervisor Relationship Specialty Start Date End Date Howard Rayo MD [facility] [address] [place] [address] PCP - General 08/28/12 08/19/16 documented as of this encounter
--- OUTSIDE RECORDS SUMMARY | 2024-04-09 13:58 | XMS_ITS | Encounter Summary ---
[place] [address] Care Team Providers Care Psychological Examiner Name Role Phone Howard Rayo MD Primary Care Provider [phone] Reason for Visit * Reason Comments Prostate Cancer Encounter Details Date Type Department Care Team (Late st Contact Info) Description 10/29/2012 10:30 AM EDT Office Visit [place] [address] Armani Bejarano MD Prostate cancer (Primary Dx) Social History Tobacco Use Types Packs/Day Years Used Date Smoking Tobacco: Former Sex and Gender Information Value Date Recorded Sex Assigned at Not on file Gender Identity Not on file Sexual Orientation Not on file documented as of this encounter Last Filed Vital Signs Vital Sign Reading Time Taken Comments Blood Pressure 164/77 10/29/2012 10:25 AM EDT Pulse 74 10/29/2012 10:25 AM EDT Temperature - - Respiratory Rate 20 10/29/2012 10:25 AM EDT Oxygen Saturation - - Inhaled Oxygen Concentration - - Weight 68 kg (150 lb) 10/29/2012 10:25 AM EDT Height 170.2 cm (5' 7) 10/29/2012 10:25 AM EDT Body Mass Index 23.49 10/29/2012 10:25 AM EDT documented in this encounter Progress Notes * Armani Bejarano MD - 10/29/2012 11:52 AM EDT RADIATION ONCOLOGY CONSULTATION NOTE PROVIDER: Armani Bejarano MD, PhD REFERRING PROVIDER: Moses Pérez MD PRIMARY CARE PROVIDER: HOWARD RAYO MD Allen Cerda is a 67 y.o. male who is seen at the [facility] at [facility] at the request of Dr. Pérez regarding prostate cancer. History of Present Illness: Mr. Allen Cerda injured his back in [...] Prostatic core needle biopsy, left base: Adenocarcinoma, Ceredo grade 4 + 3, involving approximately 50% of the single biopsy core. H - Prostatic core needle biopsy, left mid: 1. Adenocarcinoma, Donny grade 4 + 3, involving approximately 60% of the fragmented needle biopsy core. 2. Perineural invasion is present. I - Prostatic core needle biopsy, left apex: 1. Adenocarcinoma, Ceredo grade 3 + 4, involving approximately 10% of the single biopsy core. 2. Perineural invasion is present. J - Prostatic core needle biopsy, left lateral base: 1. Adenocarcinoma, Ceredo grade 4 + 5, involving approximately 70% of the single biopsy core (see Comment). 2. Focus of intraluminal cancer, suspicious for lymphatic invasion. K - Prostatic core needle biopsy, left lateral mid: Adenocarcinoma, Ceredo grade 4 + 4, involving approximately 25% of the single biopsy core. L - Prostatic core needle biopsy, left lateral apex: Adenocarcinoma, Ceredo grade 3 + 3, involving less than 5% of the single biopsy core. M - Prostatic core needle biopsy, left nodule x 2: Adenocarcinoma, Ceredo grade 4 + 4, involving approximately 60% of the multiple needle biopsy core fragments. His other work-up has included: MRI Pelvis [...] skeletal metastases. IPSS: 1 TRUS:46cc ALVINA: 25 Overall he feels well. Back pain from injury improved with time. Nocturia X 1. No hematuria or dysuria. Normal bowel movements. Has a colonoscopy planned. Patient Active Problem List Diagnoses Date Noted ??? PSA elevation 09/22/2012 ??? Prostate nodule 09/22/2012 Contraindications to Radiotherapy: NO: YES: Date, site, dose (women only) Prior Radiotherapy x Past Medical History Diagnosis Date ??? PSA elevation 09/22/2012 ??? Prostate nodule 09/22/2012 Past Surgical History: Tonsilectomy Appendectomy Vasectomy Patient's Medications New Prescriptions No medications on file Previous Medications No medications on file Modified Medications No medications on file Discontinued Medications IBUPROFEN (ADVIL;MOTRIN) 200 MG TABLET Take 400 mg by mouth 3 times daily. LEVOFLOXACIN (LEVAQUIN) 500 MG TABLET Take one tablet by mouth 2 hr prior to procedure, then daily till gone. No Known Allergies History Social History ??? Marital Status: Spouse Name: N/A Number of Children: N/A ??? Years of Education: N/A Social History Main Topics ??? Smoking status: Former Smoker ??? Smokeless tobacco: None ??? Alcohol Use: None ??? Drug Use: None ??? Sexually Active: None Other Topics Concern ??? None Social History Narrative ??? None Family History: No family history of prostate cancer Review of Systems: Gen: No fevers, chills. : See HPI GI:See HPI, no diarrhea or blood. Colonoscopy planned. MSK: History of back pain after injury, improved. Physical Examination: Filed Vitals: 10/29/12 1025 BP: 164/77 Pulse: 74 Resp: 20 Height: 170.2 cm (5' 7) Weight: 68.04 kg (150 lb) Well appearing, NAD AAOX3, Interactive, asks appropriate questions. Ambulatory Pathology: As reviewed above Laboratory Studies: PSA: 09/28/12: 57.06 Aug 2012: 98 Imaging: As reviewed above, I directly viewed the MRI pelvis. Assessment: Allen Cerda is a 67 y.o. 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 No other medical problems. We discussed treatment options for high risk prostate cancer today, I recommended treatment. Our discussion focused on radiation therapy for definitive treatment. He will speak with Dr. Domínguez today regarding surgery. Given his high PSA and Donny score, he is at risk for PRINCESS which would predict for need of adjuvant/salvage radiation should he wish for prostatectomy. I discussed the logistics of radiation treatment including gold-marker placement for utilization inImage-guided treatment to increase precision with the goal to reduce morbidity. We discussed both acute and late side-effects of radiotherapy. The acute sequelae of urinary and gastrointestinal irritation are expected and manageable. The late effects with radiation treatment include a low chance of significant damage to bowel or bladder function, and a low risk of second malignancy. We discussed that optimal definitive therapy for high risk prostate cancer includes neoadjuvant, concurrent, and adjuvant androgen deprivation therapy. We reviewed the side effects associated with hormonal therapy, including short-term issues such as fatigue, loss of libido, hot flashes, arthralgias, myalgias, and changes in body habitus, and long-term issues such as anemia, changes in liver function, bone density loss, and low risks of cardiac disease and metabolic syndrome. My recommendation is for Image-guided and Intensity-modulated radiation with neoadjuvant/concurrentand adjuvant androgen deprivation. We discussed the rationale for this recommendation in detail. Wereviewed when radiation should be initiated as well as the rationale for fractionation. At the end of our discussion all questions were answered. Plan: 1. Patient has met with Dr. Domínguez. He wishes to pursue definitive radiation with ADT. A prescription has been sent to his pharmacy to start bicalutamide. [facility] and administer first Lupron injection. 2. Request lab results, CBC, CMP from Dr. Rayo. 3. Patient will have colonoscopy prior to starting radiation. Total visit time was 84 minutes. 45 minutes were spent in face to face counseling and coordination of care. documented in this encounter Plan of Treatment Upcoming Encounters Date Type Department Care Team (Late st Contact Info) Description 04/15/2024 1:00 PM EST Office Visit Radiation Oncology at [address] [address] Brenda Calvin PA [facility] [place] [address] documented as of this encounter Visit Diagnoses Diagnosis Prostate cancer- Primary Malignant neoplasm of prostate documented in this encounter Care Teams Psychological Examiner Relationship Specialty Start Date End Date Howard Rayo MD [facility] [address] [place] [address] PCP - General 08/28/12 08/19/16 documented as of this encounter
--- OUTSIDE RECORDS SUMMARY | 2024-04-09 13:58 | XMS_ITS | Encounter Summary ---
Author Organization [facility] [place] [address] Care Team Providers Care Incinerator Attendant Name Role Phone Howard Rayo MD Primary Care Provider [phone] Reason for Visit * Reason Comments Injections Lupron injection Encounter Details Date Type Department Care Team (Late st Contact Info) Description 07/23/2013 4:00 PM EDT Office Visit Hematology Oncology at [address] [phone] Stephon Ontiveros MD [facility] [place] [place] [address] Prostate cancer (Primary Dx) Discharge Disposition: Home [...] as of this encounter Progress Notes * Marjorie Muse RN - 07/23/2013 4:08 PM EDT Treatment Started: 1555 Treatment Ended: 1605 Diagnosis: Prostate Cancer Treatment: Lupron injection documented in this encounter Procedure Notes * Provider, Scanning - 10/01/2013 9:04 PM EDTAssociated Order(s): SCAN DOC: LAB documented in this encounter Plan of Treatment Upcoming Encounters Date Type Department Care Team (Late st Contact Info) Description 04/15/2024 1:00 PM EST Office Visit Radiation Oncology at [address] [address] Brenda Calvin PA [facility] DR [place] [address] documented as of this encounter Procedures Procedure Name Priority Date/Time Associated Diagnosis Comments LAB SCAN 10/01/2013 9:04 PM EDT documented in this encounter Results * SCAN DOC: LAB (10/01/2013 9:04 PM EDT) Narrative 10/01/2013 9:04 PM EDT Procedure Note Provider, Johnny - 10/01/2013 9:04 PM EDT Scanning Provider MEDIA MGR SCAN EXT O RDR/RSLT documented in this encounter Visit Diagnoses Diagnosis Prostate cancer- Primary Malignant neoplasm of prostate documented in this encounter Administered Medications Inactive Administered Medications - up to 3 most recent administrations Medication Order MAR Action Action Date Dose Rate Site leuprolide (LUPRON) injection 22.5 mg 22.5 mg, Intramuscular, ONCE, 1 dose, On Fri07/23/13 at 1630, Routine Given 07/23/2013 4:03 PM EDT 22.5 mg Left Gluteal documented in this encounter Care Teams Incinerator Attendant Relationship Specialty Start Date End Date Howard Rayo MD [facility] [address] [place] [address] PCP - General 08/28/12 08/19/16 documented as of this encounter
--- OUTSIDE RECORDS SUMMARY | 2024-04-09 13:58 | XMS_ITS | Encounter Summary ---
Author Organization [facility] [place] [address] Care Team Providers Care Firer Marine Name Role Phone Howard Rayo MD Primary Care Provider [phone] Reason for Visit * Reason Comments Injections Encounter Details Date Type Department Care Team (Late Contact Info) Description 07/28/2014 11:30 AM EDT Office Visit Hematology Oncology at [address] [phone] CLINIC, DR MARTINEZ HEM/ONC Real Londono MD Prostate cancer Discharge Disposition: Home Social History [...] as of this encounter Progress Notes * Jayda Morrison RN - 07/28/2014 11:11 AM EDT lupron 22.5 mg IM into left gluteal documented in this encounter Plan of Treatment Upcoming Encounters Date Type Department Care Team (Late Contact Info) Description 04/15/2024 1:00 PM EST Office Visit Radiation Oncology at [address] [phone] Brenda Calvin PA [facility] HEMATOLOGY [place] [address] documented as of this encounter Visit Diagnoses Diagnosis Prostate cancer Malignant neoplasm of prostate documented in this encounter Administered Medications Inactive Administered Medications - up to 3 most recent administrations Medication Order MAR Action Action Date Dose Rate Site leuprolide (LUPRON) injection 22.5 mg 22.5 mg, Intramuscular, ONCE, 1 dose, On Monica 07/28/14 at 1130, Dose 2 of 2., Routine Given 07/28/2014 11:08 AM EDT 22.5 mg Left Gluteal documented in this encounter Care Teams Firer Marine Relationship Specialty Start Date End Date Howard Rayo MD [facility] [address] [place] [address] PCP - General 08/28/12 08/19/16 documented as of this encounter
--- OUTSIDE RECORDS SUMMARY | 2024-04-09 13:58 | XMS_ITS | Encounter Summary ---
Author Organization [facility] [place] [address] Care Team Providers Care Nickel Operator Name Role Phone Howard Rayo MD Primary Care Provider [phone] Encounter Details Date Type Department Care Team (Latest Contact Info) Description 08/28/2012 11:31 AM EDT - 08/28/2012 11:59 PM EDT [place] [address] CLINIC, CONV Unknown None Eduardo Torre MD [facility] [address] [place] [address] Discharge Disposition: Home Social History Tobacco Use [...] - - Temperature - - Respiratory Rate - - Oxygen Saturation - - Inhaled Oxygen Concentration - - Weight 69.4 kg (153 lb) 08/28/2012 12:43 PM EDT Height - - Body Mass Index - - documented in this encounter Miscellaneous Notes * Miscellaneous - Provider, Scanning - 09/07/2012 5:42 AM EDT documented in this encounter Plan of Treatment Upcoming Encounters Date Type Department Care Team (Late Contact Info) Description 04/15/2024 1:00 PM EST Office Visit Radiation Oncology at [address] [phone] Brenda Calvin PA [facility] DR HEMATOLOGY [place] [address] documented as of this encounter Procedures Procedure Name Priority Date/Time Associated Diagnosis Comments MRI LUMBAR SPINE WITH/WO CONTRAST Routine 08/28/2012 1:05 PM EDT documented in this encounter Results * MRI lumbar spine with/WO contrast (08/28/2012 1:05 PM EDT) Anatomical Region Laterality Modality L-spine Magnetic Resonan ce 08/28/2012 1:05 PM EDT Narrative 08/28/2012 4:07 PM EDT Examination MR Lumbar Spine W/WO Micah Clinical History METASTATIC BONE CANCER/SPINAL COMPRESSION Comparison None Technique MR of the lumbar spine performed prior to and following intravenous administration of 14 mL Magnevist. Findings There is levo convex curvature of the lumbar spine. Marrow signal is heterogeneous, without focal appearing aggressive lesion. The conus terminates at the upper L1 level. ??The visualized retroperitoneum is unremarkable. ??A fluid signal intensity 4.7 x 1.8 cm collection is present in the superficial soft tissues of the back at the L4 level on the right which may represent a subcutaneous cyst. Findings at specific levels: L1-L2: ??There is a small left paracentral disc protrusion in the background of mild disc bulging. ??Combination of disc material and facet arthropathy produces mild left foraminal narrowing. L2-L3: ??Disc bulge and facet arthropathy contribute to mild bilateral foraminal narrowing. ??There is minimal central canal narrowing. ?? L3-L4: ??There is loss disc height. ??Disc bulge, endplate proliferation, and facet arthropathy produce moderate right and mild left foraminal narrowing. ?? There is mild central canal narrowing. L4-L5: ??A central disc protrusion is present in the background of disc bulge. ?? Combination of disc bulge, endplate proliferation, and facet arthropathy produce moderate to severe right and mild left foraminal narrowing. ??There is mild central canal narrowing. L5-S1: ??A left paracentral annular fissure is present. ??Combination of facet arthropathy and disc bulge, and endplate proliferation produce mild bilateral foraminal narrowing. Impression ? 1. No aggressive appearing osseous lesion, or severe central canal narrowing. ? 2. Multilevel lumbar spine degenerative changes as described each level above. Procedure Note Eduardo Torre MD - 08/28/2012 Examination MR Lumbar Spine W/WO Micah Clinical History METASTATIC BONE CANCER/SPINAL COMPRESSION Comparison None Technique MR of the lumbar spine performed prior to and following intravenous administration of 14 mL Magnevist. Findings There is levo convex curvature of the lumbar spine. Marrow signal is heterogeneous, without focal appearing aggressive lesion. The conusterminates at the upper L1 level. The visualized retroperitoneum is unremarkable. A fluid signal intensity 4.7 x 1.8 cm collection is present in thesuperficial soft tissues of the back at the L4 level on the right which may representa subcutaneous cyst. Findings at specific levels: L1-L2: There is a small left paracentral disc protrusion in thebackground of mild disc bulging. Combination of disc material and facet arthropathyproduces mild left foraminal narrowing. L2-L3: Disc bulge and facet arthropathy contribute to mild bilateralforaminal narrowing. There is minimal central canal narrowing. L3-L4: There is loss disc height. Disc bulge, endplate proliferation,and facet arthropathy produce moderate right and mild left foraminalnarrowing. There is mild central canal narrowing. L4-L5: A central disc protrusion is present in the background of discbulge. Combination of disc bulge, endplate proliferation, and facet arthropathy produce moderate to severe right and mild left foraminal narrowing. Thereis mild central canal narrowing. L5-S1: A left paracentral annular fissure is present. Combination offacet arthropathy and disc bulge, and endplate proliferation produce mildbilateral foraminal narrowing. Impression 1. No aggressive appearing osseous lesion, or severe central canal narrowing. 2. Multilevel lumbar spine degenerative changes as described eachlevel above. Howard Rayo MD IMG MRI ORDERABLES documented in this encounter Visit Diagnoses Not on filedocumented in this encounter Administered Medications Inactive Administered Medications - up to 3 most recent administrations Medication Order MAR Action Action Date Dose Rate Site gadopentetate dimeglumine (MAGNEVIST) injection 14 mL 14 mL (0.2 mL/kg/dose ? 69.4 kg), Intravenous, ONCE PRN, Per Protocol, Starting on Fri08/28/12 at 1244, 1 dose, Until Fri08/28/12 at 1247 Given 08/28/2012 12:47 PM EDT 14 mLs documented in this encounter Care Teams Nickel Operator Relationship Specialty Start Date End Date Howard Rayo MD [facility] [address] [place] [address] PCP - General 08/28/12 08/19/16 documented as of this encounter
--- OUTSIDE RECORDS SUMMARY | 2024-04-09 13:58 | XMS_ITS | Encounter Summary ---
Author Organization [facility] [place] [address] Care Team Providers Care Squeezer Operator Name Role Phone Howard Rayo MD Primary Care Provider [phone] Reason for Visit * Reason Comments Injections Lupron Injection Encounter Details Date Type Department Care Team (Late st Contact Info) Description 04/26/2013 10:00 AM EST Office Visit Hematology Oncology at [address] [phone] CLINIC, DR MARTINEZ HEM/ONC Abilio Amaro MD [facility] [place] [address] Malignant neoplasm of prostate (Primary Dx) Discharge [...] Progress Notes * Ирина Vu RN - 04/26/2013 2:59 PM EST Treatment Started: 0950 Treatment Ended: 1000 Diagnosis: Prostate CA Treatment: Lupron Injection documented in this encounter Procedure Notes * Provider, Scanning - 04/27/2013 10:35 AM ESTAssociated Order(s): SCAN DOC: CHEMOTHERAPY documented in this encounter Plan of Treatment Upcoming Encounters Date Type Department Care Team (Late st Contact Info) Description 04/15/2024 1:00 PM EST Office Visit Radiation Oncology at [address] [phone] Brenda Calvin PA [facility] [place] [address] documented as of this encounter Procedures Procedure Name Priority Date/Time Associated Diagnosis Comments CHEMOTHERAPY SCAN 04/27/2013 10: 35 AM EST documented in this encounter Results * SCAN DOC: CHEMOTHERAPY (04/27/2013 10:35 AM EST) Narrative 04/27/2013 10:35 AM EST Procedure Note Provider, Scanning - 04/27/2013 10:35 AM EST Scanning Provider MEDIA MGR SCAN EXT O RDR/RSLT documented in this encounter Visit Diagnoses Diagnosis Malignant neoplasm of prostate- Primary documented in this encounter Administered Medications Inactive Administered Medications - up to 3 most recent administrations Medication Order MAR Action Action Date Dose Rate Site leuprolide (LUPRON) injection 22.5 mg 22.5 mg, Intramuscular, ONCE, 1 dose, On 04/26/13 at 1015, Routine Given 04/26/2013 9:57 AM EST 22.5 mg Right Gluteal documented in this encounter Care Teams Squeezer Operator Relationship Specialty Start Date End Date Howard Rayo MD [facility] [address] [place] [address] PCP - General 08/28/12 08/19/16 documented as of this encounter
== END 2024-04-09 13:53 | disposition home or self-care (01) ==
LOC: LBO 13:55
PROVIDERS: PCP Family Medicine; Visit Provider Nurse Practitioner
DX: Z85.46 Personal history of malignant neoplasm of prostate (principal)
CPT/HCPCS: 36415; 84153

== ENCOUNTER 2024-12-15 15:09 | Outpatient (REF) | payer MEDICARE, SELFPAY ==
[2024-12-15 16:06] LABS: Abs Immature Grans 0.02 10^3/uL (0.0-0.06); HCT 41.3 % (40.0-50.0); HGB 14.0 g/dL (13.5-17.5); Immature Grans % 0.4 %; MCH 29.6 pg (27.0-33.0); MCHC 33.9 % (32.0-36.0); MCV 87 fL (80-95); MPV 9.4 fL (8.0-11.0); Platelet Count 286 10^3/uL (130-400); RBC 4.73 10^6/uL (4.36-5.78); RDW 12.5 % (11.8-14.1); RDW-SD 40.1 fL; WBC 5.21 10^3/uL (4.4-10.8)
[2024-12-15 17:27] LABS: ALT 24 U/L (16-63); AST 24 U/L (15-37); Albumin 4.0 g/dL (3.4-5.0); Alkaline Phosphatase 69 U/L (46-116); Anion Gap 9.5 mmol/L (3-11); BUN 14 mg/dL (7-18); Bilirubin, Total 0.5 mg/dL (0.2-1.0); CO2 26.5 mmol/L (21.0-32.0); Calcium 9.7 mg/dL (8.5-10.1); Chloride 102 mmol/L (98-107); Estimated GFR 90.58 (mL/min/1.73m2); Glucose 100 mg/dL (74-106); Potassium 5.1 mmol/L (3.5-5.1); Sodium 138 mmol/L (136-145); Total Protein 7.1 g/dL (6.4-8.2)
== END 2024-12-15 15:10 | disposition home or self-care (01) ==
LOC: NCHCN 15:09
PROVIDERS: PCP Family Medicine; Visit Provider Student in an Organized Health Care Education/Training Program
DX: I10 Essential (primary) hypertension (principal); C61 Malignant neoplasm of prostate
CPT/HCPCS: 80053; 84153; 85025